=== PATIENT | female | born 1970 | race Caucasian/White ===

== ENCOUNTER → 2020-07-28 14:44 | Outpatient (BNVA) | payer OTHER, SELFPAY | PROVIDERS: PCP Internal Medicine; Referring Provider Internal Medicine; Visit Provider Physician Assistant | DX: K28.9 Gastrojejunal ulcer, unspecified as acute or chronic, without hemorrhage or perforation (principal); I95.9 Hypotension, unspecified; Z79.899 Other long term (current) drug therapy; Z98.84 Bariatric surgery status | CPT/HCPCS: 99214 ==

== ENCOUNTER 2020-08-03 14:12 | Outpatient (REF) | payer OTHER, SELFPAY | END 2020-08-03 14:13 | disposition home or self-care (01) | LOC: HO.LAB 14:12 | PROVIDERS: PCP Internal Medicine; Visit Provider Internal Medicine | DX: Z20.828 Contact with and (suspected) exposure to other viral communicable diseases (principal) | CPT/HCPCS: 87635 ==

== ENCOUNTER 2020-08-17 10:07 | Outpatient (REF) | payer OTHER, SELFPAY ==
--- NOTE | 2020-08-17 10:28 | XR_ITS ---
EXAMINATION: XR ANKLE, LEFT CLINICAL INFORMATION: Displaced fracture lateral malleolus COMPARISON: Radiographs left ankle and foot 06/27/2020 TECHNIQUE: AP, lateral, and mortise views of the left ankle. FINDINGS: The distal fibula and lateral malleolus appears intact. There is no lateral malleoli fracture line or periostitis or callus formation. Again, there is old appearing posttraumatic change versus collapsed tip medial malleolus. The ankle mortise is symmetric. There is no visible ankle capsular effusion. The subtalar joint is unremarkable. There is bulky posterior calcaneal spur again noted. Some mild spurring again seen mid dorsum foot. IMPRESSION: 1. Cleft versus old injury tip medial malleolus similar to prior exam. 2. No visible lateral malleoli fracture. Ankle mortise is symmetric. 3. Bulky posterior calcaneal spur.
== END 2020-08-17 10:08 | disposition home or self-care (01) ==
LOC: HO.XRAY 10:07
PROVIDERS: PCP Internal Medicine; Referring Provider Internal Medicine; Visit Provider Physician Assistant
DX: S82.832D Other fracture of upper and lower end of left fibula, subsequent encounter for closed fracture with routine healing (principal)
CPT/HCPCS: 73610; 99212

== ENCOUNTER 2020-08-18 09:49 | Day surgery (SDC) | payer OTHER, SELFPAY ==
[2020-08-16 21:16] VITALS: BMI 28.0
--- NOTE | 2020-08-17 10:22 | P.CONAN_ITS ---
Documented by User: Nikki Diez 08/17/20 10:29 HPI - Anesthesia Eval Consult details Narrative: 50yo F for EGD s/p gastric bypass 10/2019 mult egd (last 07/14/20) FOR[facility]LY [facility] Past Medical History Medical History Anastomotic ulcer S/P gastric bypass Anxiety Back pain CKD stage 3 secondary to diabetes Depression Diabetes Diverticulitis DVT of right axillary vein, acute Endometrial cancer Hypotension Pacemaker (~2015) Pulmonary embolus, left (~04/2020) Renal stones Seizure disorder Status post extracorporeal shock wave therapy Family History Family History Father No problems noted. Mother Diabetes Chronic mental illness Father No problems noted. Mother No problems noted. Surgical History Surgical History H/O tooth extraction History of esophagogastroduodenoscopy (~06/2020) History of Trisha-en-Y gastric bypass (~10/2019) History of sleeve gastrectomy (~2014) Hx laparoscopic cholecystectomy Hx of appendectomy Hx of hernia repair S/P CELESTINO (total abdominal hysterectomy) Social History Social History Alcohol intake: former Smoking Status: Never smoker Second Hand Smoke Exposure: No Use of substances other than those prescribed or required for medical reasons: No Advance Directives: No Advance Directives Information Provided: No Advance Directives on File: No Recently lost weight without trying: No Meds Allergies Allergy/AdvReac Type Severity Reaction Status Date / Time egg [EGGS] Allergy Intermediate NAUSEA/VOMI Verified 08/17/20 10:16 TING sumatriptan [From IMITREX] Allergy Intermediate HEART Verified 08/17/20 10:16 PALPITATIONS eggs Allergy Intermediate vomit Uncoded 08/16/20 21:11 Ibuprofen Allergy Unknown Unknown Uncoded 08/16/20 20:52 Home Medications Medication Instructions Recorded Confirmed Type food supplemt, lactose-reduced 1 ea PO TID 07/27/20 08/16/20 History pantoprazole 20 mg tablet,delayed 20 mg PO DAILY 07/27/20 08/16/20 History release sucralfate 1 gram tablet 1 g PO TID tab 07/27/20 08/16/20 History midodrine 5 mg tablet 5 mg PO TID 07/28/20 08/16/20 History Exam Exam Date and Time: August 17, 2020 1022 Height,Weight and Vital Signs: Height 5 ft 6 in Weight 78.925 kg Pertinent Lab Results Pertinent Lab Results: Laboratory Tests 07/20/20 07/20/20 20:43 20:43 WBC 5.3 Hgb 12.0 Hct 37.7 Plt Count 251 Sodium 139 Potassium 4.3 Chloride 105 BUN 22 H Creatinine 1.34 Narrative Narrative: EKG 04/2020: A-paced, RV conduction delay ECHO 11/2019: LVEF 60-65%, no RWMA Assessment and Plan Assessment Anesthesia Assessment: Chart Reviewed Documented by User: Catalino Abdalla 08/18/20 10:52 PMFSH Past Medical History Medical History Anastomotic ulcer S/P gastric bypass Anxiety Back pain CKD stage 3 secondary to diabetes Depression Diabetes Diverticulitis DVT of right axillary vein, acute Endometrial cancer Hypotension Pacemaker (~2015) Pulmonary embolus, left (~04/2020) Renal stones Seizure disorder Status post extracorporeal shock wave therapy Family History Family History Father No problems noted. Mother Diabetes Chronic mental illness Father No problems noted. Mother No problems noted. Surgical History Surgical History H/O tooth extraction History of esophagogastroduodenoscopy (~06/2020) History of Trisha-en-Y gastric bypass (~10/2019) History of sleeve gastrectomy (~2014) Hx laparoscopic cholecystectomy Hx of appendectomy Hx of hernia repair S/P CELESTINO (total abdominal hysterectomy) Social History Social History Alcohol intake: former Smoking Status: Never smoker Second Hand Smoke Exposure: No Use of substances other than those prescribed or required for medical reasons: No Advance Directives: No Advance Directives Information Provided: No Advance Directives on File: No Recently lost weight without trying: No Meds Allergies Allergy/AdvReac Type Severity Reaction Status Date / Time egg [EGGS] Allergy Intermediate NAUSEA/VOMI Verified 08/17/20 10:16 TING sumatriptan [From IMITREX] Allergy Intermediate HEART Verified 08/17/20 10:16 PALPITATIONS eggs Allergy Intermediate vomit Uncoded 08/16/20 21:11 Ibuprofen Allergy Unknown Unknown Uncoded 08/16/20 20:52 Home Medications Medication Instructions Recorded Confirmed Type food supplemt, lactose-reduced 1 ea PO TID 07/27/20 08/16/20 History pantoprazole 20 mg tablet,delayed 20 mg PO DAILY 07/27/20 08/16/20 History release sucralfate 1 gram tablet 1 g PO TID tab 07/27/20 08/16/20 History midodrine 5 mg tablet 5 mg PO TID 07/28/20 08/16/20 History Exam Airway Mallampati Class: II TM Dist: >3cm Neck ROM: Full Denture: Upper and Lower Loose/Missing/Broken Teeth: No Heart: rrr+s1s2 Lungs: cta b/l Assessment and Plan Assessment Anesthesia Assessment: Anesthesia Plan Discussed, PAT Visit and Chart Reviewed Final Anesthetic Review NPO: Yes ASA Class: III Final Preanesthetic Review: No Changes in Pt Med Stat, Meds/Allgs Chart Reviewed, Consent Obtained/Reviewed and Anes Risks/Benef Reviewed Patient Risk: Low Procedure Risk: Low Assessment/Block/Sedation in SS: Assess/Block/Sedation-SS Anesthetic Plan Anesthetic Plan: MAC: Disposition: Standard PACU
[2020-08-18 10:33] LABS: Glucose, Whole Blood 77 mg/dL (60-115)
--- NOTE | 2020-08-18 10:39 | MHC.SHP ---
Pre-Procedural Eval Section A The patient is an INPATIENT: No The History & Physical has been completed within 30 days and I have reviewed it.: Yes Section B Chief Complaint: ANATOMIC ULCER Relevant Family History (Specify if Yes): No Relevant Social History: None Present Medications: see Short Stay Collaborative assessment Medical History: No relevant PMH History of Previous Operations: Relevant previous surgery/procedure and date(s) (Revision of sleeve gastrectomy to gastric bypass) Allergies: Allergies Allergy/AdvReac Type Severity Reaction Status Date / Time egg [EGGS] Allergy Intermediate NAUSEA/VOMI Verified 08/17/20 10:16 TING sumatriptan [From IMITREX] Allergy Intermediate HEART Verified 08/17/20 10:16 PALPITATIONS eggs Allergy Intermediate vomit Uncoded 08/16/20 21:11 Ibuprofen Allergy Unknown Unknown Uncoded 08/16/20 20:52 Review of Systems Sugical H&P ROS: Negative: Constitution, Cardiovascular, Respiratory, Neurological, Psychiatric, Hem-Onc, Allergic/Immunologic, Gastrointestinal, Genitourinary, Musculoskeletal, Integumentary, Endocrine and Eyes/Ears/Nose/Throat Exam Surgical H&P Exam: Normal: HEENT, Normal: Heart, Normal: Lungs, Normal: Extremities, Normal: Abdomen, Normal: Skin and Normal: Neurological Plan Diagnosis/Plan: Unchanged Patient has been examined and remains a candidate for the planned procedure
[2020-08-18] MEDS: Lactated Ringers 1,000 ML 100 ML IVCONT (11:03)
--- NOTE | 2020-08-18 11:17 | PM.OP ---
Brief Operative Note Date of procedure: 08/18/20 Pre-op diagnosis: Anastomotic ulcer, s/p laparoscopic revision to gastric bypass Post-op diagnosis: same (Superficial erosion) Procedure: PROCEDURE DATE: 11/12/2019 PREOPERATIVE DIAGNOSIS: anastomotic, s/p gastric bypass POSTOPERATIVE DIAGNOSIS: Same as above. Superficial erosion PROCEDURE: [id number] Surgeon: Geoff Antunez M.D.. Ph.D. Registered Account Administrator: None Anesthesia: IV sedation Estimated blood loss: None FINDINGS AND PROCEDURE: OPERATIVE INDICATIONS: The patient is a 50 year old female known to me who underwent a revision of sleeve gastrectomy to laparoscopic gastric bypass. The patient had excellent weight loss so far but developed an anastomotic ulcer. This has improved and is here for surveillance. Based on this information I recommended an upper endoscopy to evaluate the patient's symptoms. Risks and complications of the surgery were discussed with the patient in advance particularly the possibility of perforation or bleeding that may require surgical intervention. The patient understood the risks and was in agreement with the plan. PROCEDURE: After informed consent was obtained by the patient, the patient was transferred to the Operating Room and was placed in the supine position. After successful induction of IV sedation, a mouth block was placed and the patient was placed in the left lateral decubitus position. An upper endoscopy was performed next, the oropharynx and esophagus appeared within the normal limits. There was no hiatal hernia. The z-line was smooth. The small pouch was entered, appeared to be of normal size. There was no gastritis and the gastrojejunostomy was patent. There was no anastomotic ulcer. There was a small superficial erosion at the area of the previous ulcer. At that point the scope was advanced into the proximal small intestine (proximal Trisha limb) which appeared to be normal as well. The Trisha limb and the pouch were decompressed and the scope was withdrawn from the patient's mouth. The patient was awaken and was transferred in stable condition to the Recovery Room for further care. I was present and performed all steps of the procedure. There were no residents to assist with this case. Geoff Antunez M.D., Ph.D. Surgeon: Jeanro Antunez MD Anesthesia: MAC Estimated blood loss (mL): 0 IV fluids (mL): 300 Urine output (mL): 0 Pathology: none sent Condition: stable Disposition: PACU
[2020-08-18 11:19] VITALS: BP 94/44; PULSE 60; RESP 12; TEMP 36.1; O2SAT 100
[2020-08-18 11:34] VITALS: BP 123/75; PULSE 61; RESP 16; TEMP 36.1; O2SAT 100
--- NOTE | 2020-08-18 11:55 | HO.POSTANES ---
Post Anesthesia Evaluation Post Anesthesia Evaluation Vital Signs: Vital Signs Temp Pulse Resp BP Pulse Ox 08/18/20 11:34 97.0 F 61 16 123/75 100 08/18/20 11:19 97.0 F 60 12 94/44 L 100 Anesthesia: Monitored Mental Status: Awake Pain Control: Satisfactory Nausea/Vomiting: None Hydration: Adequate Anesthesia-Related Issues: No Anes. Related Issues
== END 2020-08-18 12:33 | disposition home or self-care (01) ==
PROVIDERS: PCP Internal Medicine; Visit Provider Surgery
PROC: 0DJ08ZZ Inspection of Upper Intestinal Tract, Via Natural or Artificial Opening Endoscopic (ICD-10-PCS; CPT 43235; principal; 2020-08-18 11:30)
DX: K28.9 Gastrojejunal ulcer, unspecified as acute or chronic, without hemorrhage or perforation (principal); Z98.84 Bariatric surgery status; E11.22 Type 2 diabetes mellitus with diabetic chronic kidney disease; N18.30 Chronic kidney disease, stage 3 unspecified; G40.909 Epilepsy, unspecified, not intractable, without status epilepticus; I95.9 Hypotension, unspecified; Z95.0 Presence of cardiac pacemaker; Z87.442 Personal history of urinary calculi; I82.A11 Acute embolism and thrombosis of right axillary vein; Z79.899 Other long term (current) drug therapy; Z88.8 Allergy status to other drugs, medicaments and biological substances; Z90.49 Acquired absence of other specified parts of digestive tract
CPT/HCPCS: 43235; 82947; J2250

== ENCOUNTER → 2020-08-19 14:10 | Outpatient (BNVA) | payer OTHER, SELFPAY | PROVIDERS: PCP Internal Medicine; Visit Provider Physician Assistant | DX: K28.9 Gastrojejunal ulcer, unspecified as acute or chronic, without hemorrhage or perforation (principal); E66.3 Overweight; Z68.28 Body mass index [BMI] 28.0-28.9, adult; Z71.3 Dietary counseling and surveillance | CPT/HCPCS: 99214 ==

== ENCOUNTER 2020-09-01 14:55 | Outpatient (REF) | payer OTHER, SELFPAY ==
--- NOTE | 2020-09-01 15:00 | XR_ITS ---
EXAMINATION: XR FOOT, RIGHT CLINICAL INFORMATION: Pain in right foot. Injury. COMPARISON: Right foot 09/01/2020 TECHNIQUE: 3 views of the right foot. FINDINGS: No fracture. No dislocation. No focal bone lesion or abnormal periosteal reaction. There is osteopenia. There is a prominent spur at the posterior calcaneus at the insertion of Achilles tendon. There is degenerative spurs of the mid talar joints at the dorsum of the foot. There is mild joint narrowing of the IP joint of the toes. Compared to the prior study of 09/01/2020 there has not been substantial change. XR/XR foot RT min 3V IMPRESSION: No acute abnormality of the foot.
== END 2020-09-01 14:56 | disposition home or self-care (01) ==
LOC: HO.HMGCX 14:55
PROVIDERS: PCP Internal Medicine; Visit Provider Hospitalist
DX: M79.671 Pain in right foot (principal)
CPT/HCPCS: 73630

== ENCOUNTER 2020-09-27 09:49 | Day surgery (SDC) | payer OTHER, SELFPAY ==
[2020-09-20 11:17] VITALS: BMI 28.1
--- NOTE | 2020-09-26 12:20 | HO.ANESPROP2 ---
Documented by User: Nikki Diez 09/26/20 12:22 HPI - Anesthesia Eval Consult details Narrative: 50yo F for Upper Endoscopy Last EGD 08/18/20 with MAC PMFSH Past Medical History Medical History Anastomotic ulcer S/P gastric bypass Anxiety Back pain CKD stage 3 secondary to diabetes Depression Diabetes Diverticulitis DVT of right axillary vein, acute Endometrial cancer Hypotension Pacemaker (~2015) Pulmonary embolus, left (~04/2020) Renal stones Seizure disorder Status post extracorporeal shock wave therapy Family History Family History Father No problems noted. Mother Diabetes Chronic mental illness Father No problems noted. Mother No problems noted. Surgical History Surgical History H/O tooth extraction History of esophagogastroduodenoscopy (~06/2020) History of Trisha-en-Y gastric bypass (~10/2019) History of sleeve gastrectomy (~2014) Hx laparoscopic cholecystectomy Hx of appendectomy Hx of hernia repair S/P CELESTINO (total abdominal hysterectomy) Social History Social History Alcohol intake: former Smoking Status: Unknown if ever smoked Second Hand Smoke Exposure: No Use of substances other than those prescribed or required for medical reasons: No Advance Directives: No Advance Directives Information Provided: No Advance Directives on File: No Meds Allergies Allergy/AdvReac Type Severity Reaction Status Date / Time egg [EGGS] AdvReac Intermediate NAUSEA/VOMI Verified 09/26/20 17:45 TING sumatriptan [From IMITREX] AdvReac Intermediate HEART Verified 09/26/20 17:45 PALPITATIONS Ibuprofen Allergy Unknown Unknown Uncoded 09/01/20 14:56 Home Medications Medication Instructions Recorded Confirmed Type food supplemt, lactose-reduced 1 ea PO TID 07/27/20 09/20/20 History sucralfate 1 gram tablet 1 g PO TID tab 07/27/20 09/20/20 History midodrine 5 mg tablet 5 mg PO TID 07/28/20 09/20/20 History hsdifxoj-xbwgcriu-dswc 45 mg-folic 1 cap PO DAILY 08/19/20 09/20/20 History acid 800 mcg-vit K 120 mcg capsule pantoprazole 20 mg tablet,delayed 40 mg PO DAILY tab 08/19/20 09/27/20 History release zolpidem 5 mg tablet 5 mg PO BEDTIME PRN 08/19/20 09/20/20 History Exam Exam Date and Time: September 26, 2020 1220 Height,Weight and Vital Signs: Height 5 ft 6 in Weight 79.107 kg Narrative Narrative: EKG 04/2020: A-paced, RV conduction delay ECHO 11/2019: LVEF 60-65%, no RWMA Assessment and Plan Assessment Anesthesia Assessment: Chart Reviewed Documented by User: Catalino Abdalla 09/27/20 12:38 PMFSH Past Medical History Medical History Anastomotic ulcer S/P gastric bypass Anxiety Back pain CKD stage 3 secondary to diabetes Depression Diabetes Diverticulitis DVT of right axillary vein, acute Endometrial cancer Hypotension Pacemaker (~2015) Pulmonary embolus, left (~04/2020) Renal stones Seizure disorder Status post extracorporeal shock wave therapy Family History Family History Father No problems noted. Mother Diabetes Chronic mental illness Father No problems noted. Mother No problems noted. Surgical History Surgical History H/O tooth extraction History of esophagogastroduodenoscopy (~06/2020) History of Trisha-en-Y gastric bypass (~10/2019) History of sleeve gastrectomy (~2014) Hx laparoscopic cholecystectomy Hx of appendectomy Hx of hernia repair S/P CELESTINO (total abdominal hysterectomy) Social History Social History Alcohol intake: former Smoking Status: Unknown if ever smoked Second Hand Smoke Exposure: No Use of substances other than those prescribed or required for medical reasons: No Advance Directives: No Advance Directives Information Provided: No Advance Directives on File: No Meds Allergies Allergy/AdvReac Type Severity Reaction Status Date / Time egg [EGGS] AdvReac Intermediate NAUSEA/VOMI Verified 09/26/20 17:45 TING sumatriptan [From IMITREX] AdvReac Intermediate HEART Verified 09/26/20 17:45 PALPITATIONS Ibuprofen Allergy Unknown Unknown Uncoded 09/01/20 14:56 Home Medications Medication Instructions Recorded Confirmed Type food supplemt, lactose-reduced 1 ea PO TID 07/27/20 09/20/20 History sucralfate 1 gram tablet 1 g PO TID tab 07/27/20 09/20/20 History midodrine 5 mg tablet 5 mg PO TID 07/28/20 09/20/20 History blzwygqo-mxpatzqn-wdsu 45 mg-folic 1 cap PO DAILY 08/19/20 09/20/20 History acid 800 mcg-vit K 120 mcg capsule pantoprazole 20 mg tablet,delayed 40 mg PO DAILY tab 08/19/20 09/27/20 History release zolpidem 5 mg tablet 5 mg PO BEDTIME PRN 08/19/20 09/20/20 History Exam Airway Mallampati Class: II TM Dist: >3cm Neck ROM: Full Loose/Missing/Broken Teeth: No Heart: rrr+s1s2 Lungs: cta b/l Assessment and Plan Assessment Anesthesia Assessment: Anesthesia Plan Discussed, PAT Visit and Chart Reviewed Final Anesthetic Review NPO: Yes ASA Class: III Final Preanesthetic Review: No Changes in Pt Med Stat, Meds/Allgs Chart Reviewed, Consent Obtained/Reviewed and Anes Risks/Benef Reviewed Patient Risk: Low Procedure Risk: Low Assessment/Block/Sedation in SS: Assess/Block/Sedation-SS Anesthetic Plan Anesthetic Plan: MAC: Disposition: Standard PACU
[2020-09-27 10:50] VITALS: BP 117/79; PULSE 62; RESP 18; TEMP 36.3; O2SAT 98
[2020-09-27] MEDS: Lactated Ringers 1,000 ML 100 ML IVCONT (11:15)
--- NOTE | 2020-09-27 13:03 | MHC.SHP ---
Pre-Procedural Eval Section A The patient is an INPATIENT: Yes The History & Physical has been completed within 30 days and I have reviewed it.: Yes Section B Chief Complaint: Gastrojejunal Ulcer Details of Present Illness: Endoscopic surveillance of a severe anastomotic ulcer Relevant Family History (Specify if Yes): No Relevant Social History: None Present Medications: see Short Stay Collaborative assessment Medical History: No relevant PMH History of Previous Operations: Relevant previous surgery/procedure and date(s) (Lap gastric bypass) Allergies: Allergies Allergy/AdvReac Type Severity Reaction Status Date / Time egg [EGGS] AdvReac Intermediate NAUSEA/VOMI Verified 09/26/20 17:45 TING sumatriptan [From IMITREX] AdvReac Intermediate HEART Verified 09/26/20 17:45 PALPITATIONS Ibuprofen Allergy Unknown Unknown Uncoded 09/01/20 14:56 Review of Systems Sugical H&P ROS: Negative: Constitution, Cardiovascular, Respiratory, Neurological, Psychiatric, Hem-Onc, Allergic/Immunologic, Gastrointestinal, Genitourinary, Musculoskeletal, Integumentary, Endocrine and Eyes/Ears/Nose/Throat Exam Surgical H&P Exam: Normal: HEENT, Normal: Heart, Normal: Lungs, Normal: Extremities, Normal: Abdomen, Normal: Skin and Normal: Neurological Plan Diagnosis/Plan: Unchanged Patient has been examined and remains a candidate for the planned procedure
[2020-09-27] MEDS: Lactated Ringers 1,000 ML 80 ML IVCONT (13:20)
--- NOTE | 2020-09-27 13:35 | PM.OP ---
Brief Operative Note Date of Service: 09/27/20 Pre-op diagnosis: Surveillance for anastomotic ulcer Post-op diagnosis: same (Healed anastomotic ulcer) Procedure: PROCEDURE DATE: 11/12/2019 PREOPERATIVE DIAGNOSIS: surveillance for anastomotic ulcer, s/p gastric bypass POSTOPERATIVE DIAGNOSIS: Healed anastomotic ulcer PROCEDURE: [id number] Surgeon: Geoff Antunez M.D.. Ph.D. Butting Saw Operator: None Anesthesia: IV sedation Estimated blood loss: None FINDINGS AND PROCEDURE: OPERATIVE INDICATIONS: The patient is a 50 year old female known to [facility] who underwent a laparoscopic gastric bypass. The patient had an excellent weight loss so far and had developed an anastomotic ulcer. This is a surveillance endoscopy to make sure the ulcer has not recurred as the patient's diet was advanced. Risks and complications of the surgery were discussed with the patient in advance particularly the possibility of perforation or bleeding that may require surgical intervention. The patient understood the risks and was in agreement with the plan. PROCEDURE: After informed consent was obtained by the patient, the patient was transferred to the Operating Room and was placed in the supine position. After successful induction of IV sedation, a mouth block was placed and the patient was placed in the left lateral decubitus position. An upper endoscopy was performed next, the oropharynx and esophagus appeared within the normal limits. There was no hiatal hernia. The z-line was smooth. The small pouch was entered, appeared to be of normal size. There was no gastritis and the gastrojejunostomy was patent. There was no anastomotic ulcer. At that point the scope was advanced into the proximal small intestine (proximal Trisha limb) which appeared to be normal as well. The Trisha limb and the pouch were decompressed and the scope was withdrawn from the patient's mouth. The patient was awaken and was transferred in stable condition to the Recovery Room for further care. I was present and performed all steps of the procedure. There were no residents to assist with this case. Geoff Antunez M.D., Ph.D. Surgeon: Jenaro Antunez MD Anesthesia: MAC Estimated blood loss (mL): 0 IV fluids (mL): 300 Urine output (mL): 0 (No [place] to record) Pathology: none sent Condition: stable Disposition: PACU
[2020-09-27 13:41] VITALS: BP 102/48; PULSE 60; RESP 12; TEMP 36.8; O2SAT 98
[2020-09-27 13:53] VITALS: BP 106/61; PULSE 62; RESP 18; TEMP 36.6; O2SAT 99
--- NOTE | 2020-09-27 14:07 | HO.POSTANES ---
Post Anesthesia Evaluation Post Anesthesia Evaluation Vital Signs: Vital Signs Temp Pulse Resp BP Pulse Ox 09/27/20 13:53 98 F 62 18 106/61 99 09/27/20 13:41 98.2 F 60 12 102/48 L 98 09/27/20 10:50 97.4 F 62 18 117/79 98 Anesthesia: Monitored Mental Status: Awake Pain Control: Satisfactory Nausea/Vomiting: None Hydration: Adequate Anesthesia-Related Issues: No Anes. Related Issues
== END 2020-09-27 14:20 | disposition home or self-care (01) ==
PROVIDERS: PCP Internal Medicine; Visit Provider Surgery
PROC: 0DJ08ZZ Inspection of Upper Intestinal Tract, Via Natural or Artificial Opening Endoscopic (ICD-10-PCS; CPT 43235; principal; 2020-09-27 11:10)
DX: K28.9 Gastrojejunal ulcer, unspecified as acute or chronic, without hemorrhage or perforation (principal); Z98.84 Bariatric surgery status; E11.22 Type 2 diabetes mellitus with diabetic chronic kidney disease; N18.30 Chronic kidney disease, stage 3 unspecified; I95.9 Hypotension, unspecified; G40.909 Epilepsy, unspecified, not intractable, without status epilepticus; Z95.0 Presence of cardiac pacemaker; Z90.49 Acquired absence of other specified parts of digestive tract; Z79.899 Other long term (current) drug therapy; Z88.8 Allergy status to other drugs, medicaments and biological substances; E66.3 Overweight; Z68.28 Body mass index [BMI] 28.0-28.9, adult
CPT/HCPCS: 43235

== ENCOUNTER → 2020-10-13 09:28 | Outpatient (BNVA) | payer OTHER, SELFPAY | PROVIDERS: PCP Internal Medicine; Visit Provider Physician Assistant | DX: Z98.84 Bariatric surgery status (principal) | CPT/HCPCS: Q3014 ==

== ENCOUNTER → 2020-11-04 08:16 | Outpatient (BNVA) | payer OTHER, SELFPAY | PROVIDERS: PCP Internal Medicine; Visit Provider Physician Assistant | DX: E66.3 Overweight (principal); Z98.84 Bariatric surgery status | CPT/HCPCS: Q3014 ==

== ENCOUNTER → 2020-12-23 08:20 | Outpatient (BNVA) | payer OTHER, SELFPAY | PROVIDERS: PCP Internal Medicine; Visit Provider Physician Assistant | DX: E66.3 Overweight (principal); Z98.84 Bariatric surgery status | CPT/HCPCS: Q3014 ==

== ENCOUNTER 2021-01-30 09:47 | Outpatient (REF) | payer OTHER, SELFPAY ==
[2021-01-30 10:52] LABS: MANUAL DIFF FLAG NO
[2021-01-30 11:12] LABS: Basophils Percent Auto 0.4 % (0-2); Eosinophils Absolute Auto 0.2 X10*3/uL (0.0-0.4); Eosinophils Percent Auto 2.8 % (0-4); Hematocrit 38.5 % (37-47); Hemoglobin 12.1 g/dl (12.0-16.0); Imm Gran Abs Auto 0.02 X10*3/uL (0.00-0.03); Imm Gran Pct Auto 0.4 % (0.0-0.4); Lymphocytes Absolute Auto 0.9 X10*3/uL (1.2-4.9); Mean Corpuscular HGB Conc 31.4 g/dl (31.0-35.0); Mean Corpuscular Hemoglobin 27.9 pg (27.0-33.0); Mean Corpuscular Volume 88.7 fL (80-98); Mean Platelet Volume 10.3 fL (9.4-12.3); Monocytes Absolute Auto 0.4 X10*3/uL (0.1-1.2); Monocytes Percent Auto 7.7 % (2-11); Neutrophils Absolute Auto 3.8 X10*3/uL (2.0-8.3); Neutrophils Percent Auto 71.7 % (45-73); Platelet Count 301 X10*3/uL (160-400); Red Blood Count 4.34 X10*6/uL (4.20-5.50); Red Cell Distribution Width 13.5 % (11.0-16.0); White Blood Count 5.3 X10*3/uL (4.8-10.8)
[2021-01-30 11:33] LABS: Alanine Aminotransferase 17 U/L (0-31); Alkaline Phosphatase 123 U/L (39-117); Anion Gap 13 (12-20); Aspartate Amino Transferase 19 U/L (5-31); Bilirubin Total 0.6 mg/dL (0.0-1.0); Blood Urea Nitrogen 30 mg/dL (9-16); C Reactive Protein 1.75 mg/dL (< or = 0.50); Calcium 9.2 mg/dL (8.4-10.2); Carbon Dioxide 25 mmol/L (22-29); Chloride 108 mmol/L (96-108); Cholesterol 223 mg/dL; Estimated Glomerular Filt Rate 41; Glucose Random 89 mg/dL (60-115); HDL Cholesterol 51 mg/dL; LDL Cholesterol Calculated 140 mg/dl; Potassium 4.6 mmol/L (3.3-5.1); Sodium 141 mmol/L (135-145); Total Protein 6.6 g/dL (6.5-8.0); Triglycerides 164 mg/dL
[2021-01-30 11:42] LABS: Estimated Average Glucose 97 mg/dL
[2021-01-30 11:45] LABS: TSH reflex Free T4 0.85 uIU/mL (0.32-4.0); Vitamin D 25-OH Total 27.2 ng/mL (>30)
[2021-01-30 12:19] LABS: Folate 16.4 ng/mL (> or = 4.0); Vitamin B12 522 pg/mL (200-900)
[2021-01-30 13:15] LABS: Ferritin 22 ng/mL (10-250)
[2021-01-31 11:52] LABS: Calcium (PTHI) 9.3 mg/dL (8.6-10.4); PTHI 64 pg/mL (14-64)
[2021-01-31 21:21] LABS: Insulin Level Total 9.7 uIU/mL
[2021-02-02 02:11] LABS: Zinc 62 mcg/dL (60-130)
[2021-02-04 12:16] LABS: Vitamin A 57 mcg/dL (38-98)
[2021-02-06 08:26] LABS: Vitamin B1 29 nmol/L (8-30)
== END 2021-01-30 09:48 | disposition home or self-care (01) ==
LOC: HO.LAB 09:47
PROVIDERS: PCP Internal Medicine; Visit Provider Physician Assistant
DX: K28.9 Gastrojejunal ulcer, unspecified as acute or chronic, without hemorrhage or perforation (principal); Z98.84 Bariatric surgery status
CPT/HCPCS: 36415; 80053; 80061; 82306; 82607; 82728; 82746; 83036; 83525; 83970; 84425; 84443; 84590; 84630; 85025; 86140

== ENCOUNTER → 2021-02-22 08:30 | Outpatient (BNVA) | payer OTHER, SELFPAY | PROVIDERS: PCP Internal Medicine; Visit Provider Physician Assistant | DX: E66.3 Overweight (principal); Z68.28 Body mass index [BMI] 28.0-28.9, adult; Z98.84 Bariatric surgery status; Z71.3 Dietary counseling and surveillance | CPT/HCPCS: Q3014 ==

== ENCOUNTER → 2021-04-07 08:20 | Outpatient (BNVA) | payer OTHER, SELFPAY | PROVIDERS: PCP Internal Medicine; Visit Provider Physician Assistant | DX: E66.3 Overweight (principal); Z98.84 Bariatric surgery status | CPT/HCPCS: Q3014 ==

== ENCOUNTER 2021-04-13 23:01 | Inpatient (IN) | payer OTHER, SELFPAY ==
--- NOTE | ~2021-04-13 | XR_ITS ---
EXAMINATION: XR CHEST CLINICAL INFORMATION: Overdose COMPARISON: Previous chest x-ray most recent April 2020 TECHNIQUE: Frontal view of the chest was obtained. FINDINGS: The cardiac and mediastinal contours are stable. There is a left subclavian dual chamber pacemaker in satisfactory position. The lungs are clear. There is no pleural effusion or pneumothorax. There are surgical clips projecting over the GE junction region and in the right upper quadrant. There are degenerative changes of the spine and curvature to the right. XR/XR chest 1V IMPRESSION: No evidence for acute disease in the chest.
[2021-04-13 23:06] VITALS: BP 117/63; PULSE 81; O2SAT 97
[2021-04-13 23:09] VITALS: BP 86/54; PULSE 75; RESP 14; TEMP 37.1; O2SAT 98; BMI 33.4
[2021-04-13 23:26] VITALS: BP 96/57
[2021-04-13 23:34] VITALS: BP 90/54; PULSE 73; RESP 16; TEMP 37.2; O2SAT 98
[2021-04-14] VITALS (14 sets, daily range): BP systolic 91–162; BP diastolic 53–88; PULSE 62–92; RESP 14–28; TEMP 36.1–36.6; O2SAT 96–100; BMI 32.6
[2021-04-14] MEDS: Naloxone HCl 2 MG/2 ML SYRINGE IVPUSH (00:05)
--- NOTE | 2021-04-14 00:20 | PC.NURSE ---
4mg zofran given IVP due to preciptius withdral.
[2021-04-14 00:21] LABS: Alanine Aminotransferase 17 U/L (0-31); Albumin Level 3.3 g/dL (3.5-5.0); Alkaline Phosphatase 126 U/L (39-117); Anion Gap 16 (12-20); Aspartate Amino Transferase 39 U/L (5-31); Bilirubin Total 0.5 mg/dL (0.0-1.0); Blood Urea Nitrogen 26 mg/dL (9-16); Calcium 8.1 mg/dL (8.4-10.2); Carbon Dioxide 22 mmol/L (22-29); Chloride 102 mmol/L (96-108); Creatinine Clr Calc Pharmacy 57.5; Estimated Glomerular Filt Rate 40; Glucose Random 122 mg/dL (60-115); Potassium 4.5 mmol/L (3.3-5.1); Sodium 135 mmol/L (135-145); Total Protein 5.7 g/dL (6.5-8.0)
--- NOTE | 2021-04-14 00:26 | ED.OVERDOSE ---
HPI - Overdose General Chief Complaint: Overdose Stated Complaint: od Time Seen by Provider: 04/14/21 00:01 Source: patient and EMS Mode of arrival: EMS Limitations: altered mental status History of Present Illness HPI Narrative: 50-year-old female is brought to the emergency department by ambulance for unintentional hydromorphone overdose. Patient is not able to give a good history, information was obtained from the ED nurse. The patient apparently had a recent back surgery and may have been discharged from a rehab facility. The patient dose of prescription 2 days prior for Dilaudid (hydromorphone) 2 mg tablets, dispensed 40 pills. Apparently she took all the pills over a 2 day. There is also some concern that the patient may have taken Ativan and Xanax. Apparently, patient has had similar overdoses in the past. A family member (niece) checked in on her this evening and she was found unresponsive. Paramedics administered Narcan and the patient woke up. The patient had a recent bariatric visit on 04/07/2021 (1 week prior). According to the note the patient was scheduled for a back surgery on April 10, 2021 at [facility] for a fracture of L3/scoliosis. Related Data Home Medications Medication Instructions Recorded Confirmed alprazolam 0.5 - 1 tab PO DAILY PRN 04/13/21 04/13/21 amitriptyline 1 - 2 tab PO BEDTIME PRN 04/13/21 04/13/21 calcium citrate-vitamin D3 1 tab PO BID 04/13/21 04/13/21 melatonin 1 cap PO BEDTIME 04/13/21 04/13/21 pantoprazole 1 tab PO DAILY 04/13/21 04/13/21 tizanidine 1 tab PO BID 04/13/21 04/13/21 venlafaxine 1 cap PO DAILY 04/13/21 04/13/21 zolpidem 0.5 - 1 tab PO BEDTIME PRN 04/13/21 04/13/21 Allergies Allergy/AdvReac Type Severity Reaction Status Date / Time egg [EGGS] AdvReac Intermediate NAUSEA/VOMI Verified 09/26/20 17:45 TING sumatriptan [From IMITREX] AdvReac Intermediate HEART Verified 09/26/20 17:45 PALPITATIONS Ibuprofen Allergy Unknown Unknown Uncoded 09/01/20 14:56 Review of Systems Review of Systems: Yes Unobtainable due to mental status [facility] Past Medical History Medical History Anastomotic ulcer S/P gastric bypass Anxiety Back pain CKD stage 3 secondary to diabetes Depression Diabetes Diverticulitis DVT of right axillary vein, acute Endometrial cancer Hypotension Pacemaker (~2015) Pulmonary embolus, left (~04/2020) Renal stones Seizure disorder Status post extracorporeal shock wave therapy Surgical History H/O tooth extraction History of esophagogastroduodenoscopy (~06/2020) History of Trisha-en-Y gastric bypass (~10/2019) History of sleeve gastrectomy (~2014) Hx laparoscopic cholecystectomy Hx of appendectomy Hx of hernia repair S/P CELESTINO (total abdominal hysterectomy) Family History Family History Father No problems noted. Mother Diabetes Chronic mental illness Father No problems noted. Mother No problems noted. Social History Social History Alcohol intake: current Alcohol intake frequency: 0-2 drinks per day Smoked in Last 30 Days: No Second Hand Smoke Exposure: No Use of substances other than those prescribed or required for medical reasons: Yes Substance Use Type: Opiates Any prior treatment program specific to substance use: No Advance Directives: No Advance Directives Information Provided: Yes Patient : No Physical Exam Vital Signs: Vital Signs: Last Vital Signs Temp 99.0 F 04/13/21 23:34 Pulse 92 04/14/21 01:57 Resp 18 04/14/21 01:57 BP 162/88 H 04/14/21 01:57 Pulse Ox 100 04/14/21 01:57 Oxygen Flow Rate 3 04/13/21 23:09 Body Mass Index 33.4 Const: Other: Somnolent, minimally arousable, female HENMT: Head: Yes normal to inspection, Yes normocephalic and Yes atraumatic Ears: external ears normal General nose exam: Normal external nose present Face and sinus: Yes normal facial exam Mouth: Normal oral and palatal mucosa present Throat: Yes posterior oropharynx normal Eyes: Periorbital: periorbital findings normal Eyelids: Yes eyelids normal Conjunctivae: conjunctivae normal Sclerae: sclerae normal Corneas: corneas normal Direct Ophthalmoscopy: normal light reflex Neck: Neck: Yes full ROM, Yes no lymphadenopathy, Yes trachea midline and Yes supple Chest: Chest palpation & inspection: normal inspection of the chest and normal palpation of entire chest wall Resp: Effort & Inspection: normal respiratory effort Auscultation: clear to auscultation bilaterally Cardio: Rate: regular rate Rhythm: regular rhythm Heart sounds: S1 normal heart sound present, S2 normal heart sound present and no murmurs GI: Inspection: Yes normal to inspection Palpation (GI): Soft to palpation, nontender, no guarding, not rigid and No hepatosplenomegaly present Skin: Lesions: no lesions Rashes: no rashes Wounds: no wounds Neuro: Other: Somnolent, minimally withdraws from pain Motor exam (neuro): 5/5 motor strength present throughout Extrem: General: Yes normal to inspection Course Course Course Narrative: 50-year-old female who presents emergency department for evaluation of an unintentional overdose on Dilaudid ( hydromorphone) and possible benzodiazepine (Ativan or Xanax). Patient was discharged from a long term facility 2 days prior with a prescription for 40 tablets of hydromorphone, 2 mg each. Apparently the patient took all of these medications over a 2 day. She was found unresponsive by a family member and was administered Narcan by the paramedics which did wake her up. Since being in the emergency department however she has become somnolent again. She was ordered to get Narcan 2 mg IV and she was started on Narcan drip. Patient was also noted to be hypotensive and I suspect that this is secondary to her overdose of Dilaudid. She was ordered to get normal saline IV x2 L. I will discuss the patient's presentation with the covering didactic instructor. 0155: Laboratory evaluation: Patient is anemic with an H&H of 10.8 and 32.9 . The patient has an elevated BUN and creatinine of 26 and 1.38 which is consistent with her chronic kidney disease. Did reveal 1+ blood, 1+ leukocyte esterase with a microscopic which revealed 5-9 rbc's, 5-9 WBCs with no bacteria. Tox screen was positive for opiates, benzodiazepines and marijuana. The patient has been awake and slightly agitated since we started the Narcan drip. I did discuss the patient's presentation with the covering didactic instructor, Dr. Schaffer. Given the half life of Dilaudid being 2.5 hours, he felt that the patient should clear up over the next 2-3 hours on the Narcan drip, unless the patient had a significant ingestion of benzodiazepines as well. He did accept the patient into the intensive care unit. MDM - Overdose Lab Data Result diagrams: 04/14/21 00:34 04/13/21 23:43 Labs: Lab Results 04/13/21 04/13/21 04/14/21 Range/Units 23:43 23:43 00:33 WBC (4.8-10.8) X10*3/uL RBC (4.20-5.50) X10*6/uL Hgb (12.0-16.0) g/dl Hct (37-47) % MCV (80-98) fL MCH (27.0-33.0) pg MCHC (31.0-35.0) g/dl RDW (11.0-16.0) % Plt Count MPV Immature Gran % (Auto) (0.0-0.4) % Neut % (Auto) (45-73) % Lymph % (Auto) (20-40) % [place] % (Auto) (2-11) % Eos % (Auto) (0-4) % Baso % (Auto) (0-2) % Lymph # (Auto) (1.2-4.9) X10*3/uL [place] # (Auto) (0.1-1.2) X10*3/uL Eos # (Auto) (0.0-0.4) X10*3/uL Baso # (Auto) (0.0-0.2) X10*3/uL Abs Immat Gran (auto) (0.00-0.03) X10*3/uL Absolute Neuts (auto) (2.0-8.3) X10*3/uL Absolute Nucleated RBC (0.0-0.012) X10*3/uL Nucleated RBC % (auto) (0.0-0.2) /100WBC Smear Tech's Comments Hold Purple Top SEE NOTE Sodium 135 (135-145) mmol/L Potassium 4.5 (3.3-5.1) mmol/L Chloride 102 (96-108) mmol/L Carbon Dioxide 22 (22-29) mmol/L Anion Gap 16 (12-20) BUN 26 H (9-16) mg/dL Creatinine 1.38 (0.5-1.4) mg/dL Estim Creat Clear Calc 57.5 Estimated GFR 40 Random Glucose 122 H D (60-115) mg/dL Calcium 8.1 L D (8.4-10.2) mg/dL Total Bilirubin 0.5 (0.0-1.0) mg/dL AST 39 H D (5-31) U/L ALT 17 (0-31) U/L Alkaline Phosphatase 126 H (39-117) U/L Total Protein 5.7 L (6.5-8.0) g/dL Albumin 3.3 L (3.5-5.0) g/dL Lipase 9 (8-78) U/L Hold Red Top Hold Yellow Top Salicylates < 5.0 L (15-30) mg/dL Urine Opiates Screen (Not Detect) Acetaminophen < 1 (<30) mcg/mL Ur Barbiturates Screen (Not Detect) Ur Phencyclidine Scrn (Not Detect) Ur Amphetamines Screen (Not Detect) U Benzodiazepines Scrn (Not Detect) Urine Cocaine Screen (Not Detect) U Marijuana (THC) Screen (Not Detect) COVID-19 (NATO) Negative (Negative) COVID-19 Clin Com See Note 04/14/21 04/14/21 04/14/21 Range/Units 00:33 00:34 01:33 WBC 5.5 (4.8-10.8) X10*3/uL RBC 3.89 L (4.20-5.50) X10*6/uL Hgb 10.8 L (12.0-16.0) g/dl Hct 32.9 L (37-47) % MCV 84.6 (80-98) fL MCH 27.8 (27.0-33.0) pg MCHC 32.8 (31.0-35.0) g/dl RDW 12.1 (11.0-16.0) % Plt Count TNP MPV TNP Immature Gran % (Auto) 0.9 H (0.0-0.4) % Neut % (Auto) 70.6 (45-73) % Lymph % (Auto) 13.3 L (20-40) % [place] % (Auto) 10.1 (2-11) % Eos % (Auto) 4.6 H (0-4) % Baso % (Auto) 0.5 (0-2) % Lymph # (Auto) 0.7 L (1.2-4.9) X10*3/uL [place] # (Auto) 0.6 (0.1-1.2) X10*3/uL Eos # (Auto) 0.3 (0.0-0.4) X10*3/uL Baso # (Auto) 0.0 (0.0-0.2) X10*3/uL Abs Immat Gran (auto) 0.05 H (0.00-0.03) X10*3/uL Absolute Neuts (auto) 3.9 (2.0-8.3) X10*3/uL Absolute Nucleated RBC 0.000 (0.0-0.012) X10*3/uL Nucleated RBC % (auto) 0.0 (0.0-0.2) /100WBC Smear Tech's Comments VERIFIED Hold Purple Top Sodium (135-145) mmol/L Potassium (3.3-5.1) mmol/L Chloride (96-108) mmol/L Carbon Dioxide (22-29) mmol/L Anion Gap (12-20) BUN (9-16) mg/dL Creatinine (0.5-1.4) mg/dL Estim Creat Clear Calc Estimated GFR Random Glucose (60-115) mg/dL Calcium (8.4-10.2) mg/dL Total Bilirubin (0.0-1.0) mg/dL AST (5-31) U/L ALT (0-31) U/L Alkaline Phosphatase (39-117) U/L Total Protein (6.5-8.0) g/dL Albumin (3.5-5.0) g/dL Lipase (8-78) U/L Hold Red Top See Note Hold Yellow Top See Note Salicylates (15-30) mg/dL Urine Opiates Screen POSITIVE H (Not Detect) Acetaminophen (<30) mcg/mL Ur Barbiturates Screen Not Detected (Not Detect) Ur Phencyclidine Scrn Not Detected (Not Detect) Ur Amphetamines Screen Not Detected (Not Detect) U Benzodiazepines Scrn POSITIVE H (Not Detect) Urine Cocaine Screen Not Detected (Not Detect) U Marijuana (THC) Screen POSITIVE H (Not Detect) COVID-19 (NATO) (Negative) COVID-19 Clin Com Critical Care Time Critical Care Time Critical Care Time: Yes Total Critical Care Time: 55 Attestation: Critical Care: The patient was critically ill with a high probability of imminent or life threatening deterioration. I spent greater than 30 minutes of discontinuous time evaluating the patient,delivering critical care at the bedside, discussing and evaluating pertinent data with consultants. Critical care time does not include time spent performing separately billable procedures or teaching. Total time spent performing critical care was 55 minutes. Discharge Plan Discharge Clinical Impression: Narcotic overdose Qualifiers: Encounter type: initial encounter Injury intent: accidental or unintentional Qualified Code(s): T40.601A - Poisoning by unspecified narcotics, accidental (unintentional), initial encounter Benzodiazepine overdose Qualifiers: Encounter type: initial encounter Injury intent: accidental or unintentional Qualified Code(s): T42.4X1A - Poisoning by benzodiazepines, accidental (unintentional), initial encounter Patient Disposition: Admitted As Inpatient
[2021-04-14 00:27] LABS: Lipase 9 U/L (8-78); Salicylate < 5.0 mg/dL (15-30)
[2021-04-14] MEDS: ondansetron HCL 4 MG/2 ML VIAL IVPUSH (00:33)
[2021-04-14 00:37] LABS: COVID-19 Test Negative (Negative); IDNOW Serial# 9DD0AD1C
[2021-04-14] MEDS: 0.9 % Sodium Chloride 1,000 ML 999 ML IV (00:41)
[2021-04-14 00:43] LABS: Basophils Percent Auto 0.5 % (0-2); Eosinophils Absolute Auto 0.3 X10*3/uL (0.0-0.4); Eosinophils Percent Auto 4.6 % (0-4); Hematocrit 32.9 % (37-47); Hemoglobin 10.8 g/dl (12.0-16.0); Imm Gran Abs Auto 0.05 X10*3/uL (0.00-0.03); Imm Gran Pct Auto 0.9 % (0.0-0.4); Lymphocytes Absolute Auto 0.7 X10*3/uL (1.2-4.9); Lymphocytes Percent Auto 13.3 % (20-40); MANUAL DIFF FLAG SCAN; Mean Corpuscular HGB Conc 32.8 g/dl (31.0-35.0); Mean Corpuscular Hemoglobin 27.8 pg (27.0-33.0); Mean Corpuscular Volume 84.6 fL (80-98); Monocytes Absolute Auto 0.6 X10*3/uL (0.1-1.2); Monocytes Percent Auto 10.1 % (2-11); Neutrophils Absolute Auto 3.9 X10*3/uL (2.0-8.3); Neutrophils Percent Auto 70.6 % (45-73); PLT CLUMP 1; Red Blood Count 3.89 X10*6/uL (4.20-5.50); Red Cell Distribution Width 12.1 % (11.0-16.0); SCAN SMEAR FLAG 1
[2021-04-14 00:49] LABS: White Blood Count 5.5 X10*3/uL (4.8-10.8)
[2021-04-14 01:08] LABS: Acetaminophen LAB < 1 mcg/mL (<30)
[2021-04-14 01:13] LABS: SLIDE REVIEW VERIFIED
--- NOTE | 2021-04-14 01:59 | PC.NURSE ---
now awake and more orientated. pt is visibly upset at being offered a bed pain. fuck you, i don't want to use a bed pain . pt educated to high fall risk status and concerns of bp dropping due to etiology of overdose. pt has had multiple small formed bowel movements in last hour.
[2021-04-14 02:02] LABS: Amphetamine Screen Urine Not Detected (Not Detect); Barbiturates, Urine Not Detected (Not Detect); Benzodiazepines Screen Urine POSITIVE (Not Detect); Cannabinoid Screen Urine POSITIVE (Not Detect); Cocaine Screen Urine Not Detected (Not Detect); Opiate Screen Urine POSITIVE (Not Detect); Phencyclidine Screen Urine Not Detected (Not Detect)
--- NOTE | 2021-04-14 02:05 | PC.NURSE ---
expediter to bedside at this time.
--- NOTE | 2021-04-14 02:10 | PC.NURSE ---
Staff Reporter in in agreement that patient is to utilize bed pain for bm and urine eliminations. plan at this time to admit to icu for further montioring and work up.
--- NOTE | 2021-04-14 02:15 | PC.NURSE ---
Pt continues to have confused conversation and is intermittently somulent. per kristina rush you you cunt, i want out pt educated to verónica joshi and it's purpose along with eitiolgy of current visit. Pt then stated i want you and them to give me my ciarra shirt , when asked to clarify you know .
--- NOTE | 2021-04-14 02:20 | P.HPCC_ITS ---
History of Present Illness Date of Service: 04/14/21 Chief Complaint: Overdose Pt is a 50yo F with a past med hx of matthew-en-y gastric bypass, anastomic ulcer. CKD stage 3 2/2 diabetes, anxiety, DVT and PE, endometrial ca, seizures, pacemaker, renal stones, diverticulitis and recent back surgery at [facility] on 04/10/21 who was BIBA after being found unresponsive at home by her niece. EMS gave pt narcan in the field, she responded and became alert. Once in the ED, she was hypotensive in the 70's systolic and became unresponsive again. After more Narcan, she was put on a Narcan drip. Pt's niece said the pt was dispensed 40 2mg tablets of dilauded for her back pain s/p surgery. She was given the 40 tablets 2 days ago and the bottle was empty. Pt also takes xanax and was given a rx for ativan, it is unclear how much of these meds she took, if any. Apparently, the pt has a hx of overdosing. Niece said it was unintentional, it's unclear how this was determined. Niece says the family checks in on her often as she is not a high functioning adult. Labs sig for BUN 26, Cr 1.38, AST 39, Alk Phos 126, albumin 3.3, tox screen was positive for opiates, benzos and marijuana, Covid negative. Current bp is 162/88, other VSS. at my bedside exam, pt is mumbling about having to go to the bathroom, she is on a bed iyer. denies pain but is somnolent and mumbling. PE otherwise unremarkable. Pt will be brought to the ICU for mgmt of her overdose. Assessment and plan discussed with Dr Schaffer and Dr Monge. Review of Systems Review of Systems: unable to obtain Neurologic: Reports confusion Psychiatric: Psychiatric: Reports confusion PMFSH Past Medical History Medical History Anastomotic ulcer S/P gastric bypass Anxiety Back pain CKD stage 3 secondary to diabetes Depression Diabetes Diverticulitis DVT of right axillary vein, acute Endometrial cancer Hypotension Pacemaker (~2015) Pulmonary embolus, left (~04/2020) Renal stones Seizure disorder Status post extracorporeal shock wave therapy Family History Family History Father No problems noted. Mother Diabetes Chronic mental illness Father No problems noted. Mother No problems noted. Surgical History Surgical History H/O tooth extraction History of esophagogastroduodenoscopy (~06/2020) History of Matthew-en-Y gastric bypass (~10/2019) History of sleeve gastrectomy (~2014) Hx laparoscopic cholecystectomy Hx of appendectomy Hx of hernia repair S/P CELESTINO (total abdominal hysterectomy) Social History Social History Household Members: None and Unknown / Unable to assess Housing: Unknown / Unable to assess Do you presently have visiting nurse or other home services: No Unable to assess alcohol history related to: Unable to respond Alcohol intake: current Alcohol intake frequency: 0-2 drinks per day Smoked in Last 30 Days: No Second Hand Smoke Exposure: No Use of substances other than those prescribed or required for medical reasons: Yes Substance Use Type: Marijuana, Opiates and Prescription Drugs Currently Displaying Signs/Symptoms of Drug Intoxication Withdrawal: No Advance Directives: No Advance Directives Information Provided: Yes Do you have thoughts of harming others: None Do you have a plan to hurt others: No Plan Recently lost weight without trying: Unsure Nutrition Risks: No Nutritional Risk Patient : No : No Poor oral hygiene: No service: No Current occupational status: disabled Meds Allergies Allergy/AdvReac Type Severity Reaction Status Date / Time egg [EGGS] AdvReac Intermediate NAUSEA/VOMI Verified 09/26/20 17:45 TING sumatriptan [From IMITREX] AdvReac Intermediate HEART Verified 09/26/20 17:45 PALPITATIONS Ibuprofen Allergy Unknown Unknown Uncoded 09/01/20 14:56 Active Medications: Current Medications Generic Name Dose Route Start Last Admin Trade Name Freq PRN Reason Stop Dose Admin Heparin Sodium (Porcine) 5,000 unit 04/14/21 02:30 Heparin Sodium,Porcine 5,000 Unit/Ml Vial SUBCUT Q12H LUPE Naloxone HCl 5 mg/ Dextrose 105 mls @ 21 mls/hr 04/14/21 00:15 04/14/21 00:15 IV 1 mg/hr .Q5H LUPE 21 mls/hr Administration 1 MG/HR Home Medications Medication Instructions Recorded Confirmed Last Taken Type alprazolam 0.5 - 1 tab PO DAILY PRN 04/13/21 04/13/21 Unknown History amitriptyline 1 - 2 tab PO BEDTIME PRN 04/13/21 04/13/21 Unknown History calcium citrate-vitamin D3 1 tab PO BID 04/13/21 04/13/21 Unknown History melatonin 1 cap PO BEDTIME 04/13/21 04/13/21 Unknown History pantoprazole 1 tab PO DAILY 04/13/21 04/13/21 Unknown History tizanidine 1 tab PO BID 04/13/21 04/13/21 Unknown History venlafaxine 1 cap PO DAILY 04/13/21 04/13/21 Unknown History zolpidem 0.5 - 1 tab PO BEDTIME PRN 04/13/21 04/13/21 Unknown History Physical Exam Vital Signs: Vital Signs: Last Vital Signs Temp 99.0 F 04/13/21 23:34 Pulse 92 04/14/21 01:57 Resp 18 04/14/21 01:57 BP 162/88 H 04/14/21 01:57 Pulse Ox 100 04/14/21 01:57 Oxygen Flow Rate 3 04/13/21 23:09 Body Mass Index 33.4 Const: General: confusion and lethargic Nutritional Appearance: obese Orientation/consciousness: confusion and lethargic HENMT: Head: Yes normal to inspection, Yes No palpable skull fracture present, Yes normocephalic and Yes atraumatic General nose exam: Normal external nose present Face and sinus: Yes normal facial exam Eyes: General: appearance normal, both eyes and all related structures Neck: Neck: Yes normal visual inspection and Yes full ROM Resp: Effort & Inspection: normal respiratory effort Auscultation: clear to auscultation bilaterally Cardio: Rate: regular rate Rhythm: regular rhythm Heart sounds: normal S1 and S2 GI: Inspection: Yes obesity Palpation (GI): Soft to palpation and nontender Back/Spine/Pelvis: Other: dressing CDI Neuro: General: confusion and Unable to assess gait Speech: Abnormal speech present (mumbling) Gait exam (Neuro): Unable to assess gait Extrem: General: Yes normal to inspection Results Labs CBC and Chem 7: 04/14/21 05:51 06/19/21 05:32 Labs: Laboratory Results - last 24 hr 04/13/21 04/13/21 04/14/21 23:43 23:43 00:33 MCV MCH MCHC RDW Plt Count MPV Immature Gran % (Auto) Neut % (Auto) Lymph % (Auto) [place] % (Auto) Eos % (Auto) Baso % (Auto) Lymph # (Auto) [place] # (Auto) Eos # (Auto) Baso # (Auto) Abs Immat Gran (auto) Absolute Neuts (auto) Absolute Nucleated RBC Nucleated RBC % (auto) Smear Tech's Comments Hold Purple Top SEE NOTE Anion Gap 16 Estim Creat Clear Calc 57.5 Estimated GFR 40 Random Glucose 122 H D Calcium 8.1 L D Total Bilirubin 0.5 AST 39 H D ALT 17 Alkaline Phosphatase 126 H Total Protein 5.7 L Albumin 3.3 L Lipase 9 Hold Red Top Hold Yellow Top Salicylates < 5.0 L Urine Opiates Screen Acetaminophen < 1 Ur Barbiturates Screen Ur Phencyclidine Scrn Ur Amphetamines Screen U Benzodiazepines Scrn Urine Cocaine Screen U Marijuana (THC) Screen COVID-19 (NATO) Negative COVID-19 Clin Com See Note 04/14/21 04/14/21 04/14/21 00:33 00:34 01:33 MCV 84.6 MCH 27.8 MCHC 32.8 RDW 12.1 Plt Count TNP MPV TNP Immature Gran % (Auto) 0.9 H Neut % (Auto) 70.6 Lymph % (Auto) 13.3 L [place] % (Auto) 10.1 Eos % (Auto) 4.6 H Baso % (Auto) 0.5 Lymph # (Auto) 0.7 L [place] # (Auto) 0.6 Eos # (Auto) 0.3 Baso # (Auto) 0.0 Abs Immat Gran (auto) 0.05 H Absolute Neuts (auto) 3.9 Absolute Nucleated RBC 0.000 Nucleated RBC % (auto) 0.0 Smear Tech's Comments VERIFIED Hold Purple Top Anion Gap Estim Creat Clear Calc Estimated GFR Random Glucose Calcium Total Bilirubin AST ALT Alkaline Phosphatase Total Protein Albumin Lipase Hold Red Top See Note Hold Yellow Top See Note Salicylates Urine Opiates Screen POSITIVE H Acetaminophen Ur Barbiturates Screen Not Detected Ur Phencyclidine Scrn Not Detected Ur Amphetamines Screen Not Detected U Benzodiazepines Scrn POSITIVE H Urine Cocaine Screen Not Detected U Marijuana (THC) Screen POSITIVE H COVID-19 (NATO) COVID-19 Clin Com Assessment and Plan (1) Narcotic overdose: Qualifiers: Encounter type: initial encounter Injury intent: accidental or unin tentional Qualified Code(s): T40.601A - Poisoning by unspecified narcotics, accidental (unintentional), initial encounter Status: Acute (2) Benzodiazepine overdose: Qualifiers: Encounter type: initial encounter Injury intent: accidental or unintentional Qualified Code(s): T42.4X1A - Poisoning by benzodiazepines, accidental (unintentional), initial encounter Status: Acute (3) History of Matthew-en-Y gastric bypass: Status: Acute (4) Hypotension: Status: Acute Critical Care Time Critical Care Time (minutes): 60
--- NOTE | 2021-04-14 02:39 | PC.NURSE ---
attempt to call report, rn involved in pt care. awaiting call back. will continue to monitor
[2021-04-14] MEDS: Heparin Sodium,Porcine 5,000 UNIT/ML VIAL 5000 UNIT SUBCUT ×2 (02:58→15:12)
[2021-04-14 03:23] LABS: Venous Blood Gas Refer to POC result
[2021-04-14 03:26] LABS: VBG Base Excess -1.6 mmol/L; VBG HCO3 23 mmol/L (22-26); VBG pCO2 40 mmHg; VBG pH 7.37 (7.32-7.43); VBG pO2 126 mmHg
--- NOTE | 2021-04-14 04:23 | PC.NURSE ---
Patient admitted from ED. Upon arrival patient able to state name and birthdate. Patient states she is at [facility], unable to state month or year, and reason for being admitted to hospital. Patient resistive to care from staff, verbally abusive and attempting to exit bed. Patient redirected and educated on the need to stay in the bed for her own safety. Patient still pushing at staff and using vulgar terms to identify staff. Security called, upon arrival patient is now restful. Will allow patient to rest. Bed alarm is active and patient is in room at nurses station.
[2021-04-14 05:56] LABS: MANUAL DIFF FLAG NO
[2021-04-14 05:57] LABS: VBG Base Excess 1.9 mmol/L; VBG HCO3 27 mmol/L (22-26); VBG pCO2 45 mmHg; VBG pH 7.38 (7.32-7.43); VBG pO2 41 mmHg
[2021-04-14 05:58] LABS: Venous Blood Gas Refer to POC result
[2021-04-14 05:58] LABS: Basophils Percent Auto 0.2 % (0-2); Eosinophils Absolute Auto 0.2 X10*3/uL (0.0-0.4); Eosinophils Percent Auto 2.3 % (0-4); Hematocrit 31.7 % (37-47); Hemoglobin 10.2 g/dl (12.0-16.0); Imm Gran Abs Auto 0.02 X10*3/uL (0.00-0.03); Imm Gran Pct Auto 0.3 % (0.0-0.4); Lymphocytes Absolute Auto 0.3 X10*3/uL (1.2-4.9); Lymphocytes Percent Auto 5.3 % (20-40); Mean Corpuscular HGB Conc 32.2 g/dl (31.0-35.0); Mean Corpuscular Hemoglobin 27.7 pg (27.0-33.0); Mean Corpuscular Volume 86.1 fL (80-98); Mean Platelet Volume 9.5 fL (9.4-12.3); Monocytes Absolute Auto 0.4 X10*3/uL (0.1-1.2); Monocytes Percent Auto 6.1 % (2-11); Neutrophils Absolute Auto 5.5 X10*3/uL (2.0-8.3); Neutrophils Percent Auto 85.8 % (45-73); Platelet Count 216 X10*3/uL (160-400); Red Blood Count 3.68 X10*6/uL (4.20-5.50); Red Cell Distribution Width 11.9 % (11.0-16.0); White Blood Count 6.4 X10*3/uL (4.8-10.8)
[2021-04-14 06:03] LABS: INTERNATIONAL NORM RATIO 1.1 (0.9-1.1); Prothrombin Time 13.2 SEC (10.8-13.0)
[2021-04-14 06:06] LABS: Partial Thromboplastin Time 43.3 SEC (24.1-38.0)
[2021-04-14 06:31] LABS: Anion Gap 12 (12-20); Blood Urea Nitrogen 21 mg/dL (9-16); Carbon Dioxide 24 mmol/L (22-29); Chloride 105 mmol/L (96-108); Creatinine Clr Calc Pharmacy 72.9; Estimated Glomerular Filt Rate 53; Glucose Random 139 mg/dL (60-115); Magnesium 1.7 mg/dL (1.6-2.6); Phosphorus 3.3 mg/dL (2.7-4.5); Potassium 4.1 mmol/L (3.3-5.1); Sodium 137 mmol/L (135-145)
--- NOTE | 2021-04-14 09:38 | PC.NURSE ---
This RN spoke with patients arnold Pat who called EMS. Adilia expressed concerns regarding patient being discharged with pain medication and reports this being second overdose involving prescription meds. Technical Architect made aware of second overdose. Case management team notified. Plan for psych consult per MD. Patient A&O x4, drowsy but arousable, Narcan gtt turned off at 0620. Patient has no memory of events leading to admission - this RN educated patient. VSS - 97.9, 64 HR, 18 RR, 113/63, 99%. Patient transferred to [facility].
--- NOTE | 2021-04-14 12:44 | MHC.CM.PN ---
pt lives alone in her apt. she is independent in her care. she does have friends and family that live in the area and can help her should she need it. this [place]. patient has had recent back surgery at [facility] and it is unclear how she ambulates. at this time she is very lethargic laying in bed and not conversational . dc plan will most likely be home p a bhn evaluation. there is the possibility of inpt psych as a dc plan depending on the n findings. cm to revisit patient when she is more awake, alert and participative. cm to cont. to follow.
--- NOTE | 2021-04-14 13:12 | PM.EVENT ---
Event Note Date of Service: 04/14/21 Event Note: Events from last night noted patient admitted to intensive care unit early this morning due to overdose Briefly 50yo F,with pmhx of matthew-en-y gastric bypass, anastomic ulcer. CKD stage 3, diabetes, anxiety, DVT and PE, endometrial ca, seizures, status post pacemaker, underwent recent back surgery at [facility] on 04/10/21 patient was brought in To [place] ER after she was found unresponsive at home by her niece. EMS gave pt narcan in the field, she responded and became alert. Once in the ED, she was hypotensive in the 70's systolic and became unresponsive again, therefore patient was started on IV Narcan drip and was subsequently admitted to intensive care unit, where patient became more awake alert early this morning therefore Narcan drip was discontinued and patient was transferred to medical floor Patient niece informed that patient was given dilauded 60 tablets, 2 mg upon discharge,empty bottle was found at home Beside this patient is also on Ambien, and alprazolam due to anxiety. At present patient is awake does not recall what happened to her, she admits that maybe she took tablets more frequently than Recommended, she is being followed by a therapist and psychiatrist and has been continued on anxiolytics for quite some time She denies any worsening anxiety or depression, she denies intentional overdose Niece says the family checks on her often as she is not a high functioning adult. Exam patient awake alert normal speech Neck is supple no JVD Lungs clear to auscultation Heart regular rate rhythm Abdomen soft nontender Extremities no edema Neuro non focal Assessment and plan Drug overdose as per patient due to pain and not intentional, family concerned and requesting for psychiatric evaluation Will obtain psychiatric consultation, care team and N evaluation Will hold sedatives since patient remains sleepy and tired Adjust medications prior to discharge. All home medications including tizanidine, venlafaxine, Ambien and alprazolam on hold Will add Prilosec for GI prophylaxis.
--- NOTE | 2021-04-14 13:16 | MHC.CLN ---
PT CURRENTLY WITHOUT A DIET ORDER WILL INPUT NPO WHEN DIET TO ADVANCE RECOMMEND 1800DM BASED ON ESTIMATED NEEDS
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
--- NOTE | 2021-04-14 14:42 | P.CNPS_ITS ---
History of Present Illness Date of Service: 04/14/2021 Chief Complaint: Overdose Reason for Consult: Anxiety, depression, drug overdose Requesting physician: Catrachita Brice Discussed with referring provider: Yes Sources of Information: patient interviewed, chart reviewed and crisis/core team assessment reviewed HPI Narrative: Luz Marina is a 50-year-old female, who was admitted after opioid and benzodiazepine overdose. Patient has multiple medical issues and multiple providers outpatient, including recent surgery at [facility]. She has been seen many times in this [facility] ED. Patient also has a pacemaker. She apparently had had back surgery on SaturdayApril 10 of this week, and had been sent home with a script for Dilaudid 2 mg 60 tabs, a 5 day supply. This medication was verified in [facility]. At some point yesterday she appeared to take more than was intended as well as [facility], [facility] also revealed several short-term scripts for opioid pain medication, 2-3 days at a time, over the past 2 years. Her niece had gone to the home and had found her unresponsive. EMS was activated, patient was administered Narcan with good effect, and was transported [place] [facility] [place] she was administered Narcan and admitted to ICU, placed on Narcan drip. When this leader writer met with patient she had been transferred to a [facility] surg floor, Narcan drip had been discontinued. Patient was resting in bed. Appropriately groomed. Fully alert and oriented. No evidence of any type of withdrawals or distress noted or reported. Fully conversant with this leader writer. Others. She states that she did take the medicat ion, but does not recall taking more than prescribed. She then stated ?I was in a lot of physical pain ?. She reports that she does not have any intention of harm to self or others. When asked if she buys things off the street for pain or anxiety, she stated ?I have not, because I do not know what is in it ?. Patient was educated regarding buying substances off the street, and the serious adverse outcomes that could ensue. She stated that she understood. Patient reports she has never been hospitalized psychiatrically. She states that she has outpatient prescriber, Alejandro Farmer. She states that she has a therapist, and that she meets with her therapist every week. She states that currently the visits are via phone. She describes having [facility] insurance, and support through them. 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 She states that this is in process. She states that she does have a history of some anxiety and depression, but that at this time she feels ?very stable ?. She states that she does not feel she abuses substances, and does not feel that she needs to go inpatient for either substance use disorder or psychiatric symptoms. She states that she feels safe to go home. Patient reports that she does have Xanax 1 mg daily p.r.n. prescribed. She states she takes approximately 3 times per week. She does have Ambien 10 mg at bedtime p.r.n. prescribed. She states that she utilizes this approximately 2-3 times per week. Patient does report that she has amitriptyline 1-2 pills at night p.r.n. for sleep. She states that this is utilized almost nightly. Past Psychiatric History: No inpatient level of care in history. Reports she has psychiatric providers, including prescriber and therapist. Medical Evaluation Reviewed: Yes Multiple medical comorbidities. Personal & Social History: Patient single, lives alone in apartment. 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 Is currently on disability. Has family in area. Review of Systems Review of Systems Complete Review of systems negative except pertinent positives as noted in history and physical. [facility] Medical History Anastomotic ulcer S/P gastric bypass Anxiety Back pain CKD stage 3 secondary to diabetes Depression Diabetes Diverticulitis DVT of right axillary vein, acute Endometrial cancer Hypotension Pacemaker (~2015) Pulmonary embolus, left (~04/2020) Renal stones Seizure disorder Status post extracorporeal shock wave therapy Surgical History H/O tooth extraction History of esophagogastroduodenoscopy (~06/2020) History of Trisha-en-Y gastric bypass (~10/2019) History of sleeve gastrectomy (~2014) Hx laparoscopic cholecystectomy Hx of appendectomy Hx of hernia repair S/P CELESTINO (total abdominal hysterectomy) Family History: Father , reported no medical issues. Mother history of chronic mental illness and diabetes. Social History: Patient lives by self, on disability. Substance History: Denies any type of illicit substance use. Does drink alcohol, states 1-2 drinks daily. Trauma History: Patient did not reveal any trauma history to this leader writer. Diagnostics Vital Signs (24Hr): Vital Signs - 24 hr 04/13/21 23:09 04/13/21 23:26 04/13/21 23:34 Temperature 98.7 F 99.0 F Pulse Rate 75 73 Respiratory Rate 14 16 Blood Pressure 86/54 L 96/57 L 90/54 L Pulse Oximetry 98 98 04/14/21 00:00 04/14/21 00:34 04/14/21 01:55 Temperature Pulse Rate 72 74 88 Respiratory Rate 14 14 20 Blood Pressure 91/53 L 151/83 H 162/88 H Pulse Oximetry 100 100 100 04/14/21 01:57 04/14/21 03:00 04/14/21 03:44 Temperature 97.7 F Pulse Rate 92 75 80 Respiratory Rate 18 22 H 28 H Blood Pressure 162/88 H 121/70 Pulse Oximetry 100 100 100 04/14/21 05:00 04/14/21 06:00 04/14/21 07:00 Temperature 97.8 F 97.8 F Pulse Rate 66 66 67 Respiratory Rate 22 H 24 H 20 Blood Pressure 128/78 117/68 97/54 L Pulse Oximetry 99 99 99 04/14/21 08:00 04/14/21 11:01 04/14/21 13:20 Temperature 97.9 F 97.6 F 96.9 F Pulse Rate 64 64 67 Respiratory Rate 18 21 H 18 Blood Pressure 113/63 107/64 118/65 Pulse Oximetry 99 99 99 Body Mass Index 32.6 Labs Results: 04/14/21 05:51 04/14/21 05:51 Labs: Laboratory Results - last 48 hr 04/13/21 04/13/21 04/14/21 23:43 23:43 00:33 WBC RBC Hgb Hct MCV MCH MCHC RDW Plt Count MPV Immature Gran % (Auto) Neut % (Auto) Lymph % (Auto) [place] % (Auto) Eos % (Auto) Baso % (Auto) Lymph # (Auto) [place] # (Auto) Eos # (Auto) Baso # (Auto) Abs Immat Gran (auto) Absolute Neuts (auto) Absolute Nucleated RBC Nucleated RBC % (auto) Smear Tech's Comments Hold Purple Top SEE NOTE PT INR APTT VBG pH VBG pCO2 VBG pO2 VBG HCO3 VBG O2 Saturation VBG Base Excess Sodium 135 Potassium 4.5 Chloride 102 Carbon Dioxide 22 Anion Gap 16 BUN 26 H Creatinine 1.38 Estim Creat Clear Calc 57.5 Estimated GFR 40 Random Glucose 122 H D Calcium 8.1 L D Phosphorus Magnesium Total Bilirubin 0.5 AST 39 H D ALT 17 Alkaline Phosphatase 126 H Total Creatine Kinase 224 H Total Protein 5.7 L Albumin 3.3 L Lipase 9 Hold Red Top Hold Yellow Top Salicylates < 5.0 L Urine Opiates Screen Acetaminophen < 1 Ur Barbiturates Screen Ur Phencyclidine Scrn Ur Amphetamines Screen U Benzodiazepines Scrn Urine Cocaine Screen U Marijuana (THC) Screen COVID-19 (NATO) Negative COVID-19 Clin Com See Note 04/14/21 04/14/21 04/14/21 00:33 00:34 01:33 WBC 5.5 RBC 3.89 L Hgb 10.8 L Hct 32.9 L MCV 84.6 MCH 27.8 MCHC 32.8 RDW 12.1 Plt Count TNP MPV TNP Immature Gran % (Auto) 0.9 H Neut % (Auto) 70.6 Lymph % (Auto) 13.3 L [place] % (Auto) 10.1 Eos % (Auto) 4.6 H Baso % (Auto) 0.5 Lymph # (Auto) 0.7 L [place] # (Auto) 0.6 Eos # (Auto) 0.3 Baso # (Auto) 0.0 Abs Immat Gran (auto) 0.05 H Absolute Neuts (auto) 3.9 Absolute Nucleated RBC 0.000 Nucleated RBC % (auto) 0.0 Smear Tech's Comments VERIFIED Hold Purple Top PT INR APTT VBG pH VBG pCO2 VBG pO2 VBG HCO3 VBG O2 Saturation VBG Base Excess Sodium Potassium Chloride Carbon Dioxide Anion Gap BUN Creatinine Estim Creat Clear Calc Estimated GFR Random Glucose Calcium Phosphorus Magnesium Total Bilirubin AST ALT Alkaline Phosphatase Total Creatine Kinase Total Protein Albumin Lipase Hold Red Top See Note Hold Yellow Top See Note Salicylates Urine Opiates Screen POSITIVE H Acetaminophen Ur Barbiturates Screen Not Detected Ur Phencyclidine Scrn Not Detected Ur Amphetamines Screen Not Detected U Benzodiazepines Scrn POSITIVE H Urine Cocaine Screen Not Detected U Marijuana (THC) Screen POSITIVE H COVID-19 (NATO) COVID-19 [place] Com 04/14/21 04/14/21 04/14/21 03:18 05:49 05:51 WBC 6.4 RBC 3.68 L Hgb 10.2 L Hct 31.7 L MCV 86.1 MCH 27.7 MCHC 32.2 RDW 11.9 Plt Count 216 D MPV 9.5 Immature Gran % (Auto) 0.3 Neut % (Auto) 85.8 H Lymph % (Auto) 5.3 L [place] % (Auto) 6.1 Eos % (Auto) 2.3 Baso % (Auto) 0.2 Lymph # (Auto) 0.3 L [place] # (Auto) 0.4 Eos # (Auto) 0.2 Baso # (Auto) 0.0 Abs Immat Gran (auto) 0.02 Absolute Neuts (auto) 5.5 Absolute Nucleated RBC 0.000 Nucleated RBC % (auto) 0.0 Smear Tech's Comments Hold Purple Top PT INR APTT VBG pH 7.37 7.38 VBG pCO2 40 45 VBG pO2 126 41 VBG HCO3 23 27 H VBG O2 Saturation 98.0 73.0 VBG Base Excess -1.6 1.9 Sodium Potassium Chloride Carbon Dioxide Anion Gap BUN Creatinine Estim Creat Clear Calc Estimated GFR Random Glucose Calcium Phosphorus Magnesium Total Bilirubin AST ALT Alkaline Phosphatase Total Creatine Kinase Total Protein Albumin Lipase Hold Red Top Hold Yellow Top Salicylates Urine Opiates Screen Acetaminophen Ur Barbiturates Screen Ur Phencyclidine Scrn Ur Amphetamines Screen U Benzodiazepines Scrn Urine Cocaine Screen U Marijuana (THC) Screen COVID-19 (NATO) COVID-19 Clin Com 04/14/21 04/14/21 05:51 05:51 WBC RBC Hgb Hct MCV MCH MCHC RDW Plt Count MPV Immature Gran % (Auto) Neut % (Auto) Lymph % (Auto) [place] % (Auto) Eos % (Auto) Baso % (Auto) Lymph # (Auto) [place] # (Auto) Eos # (Auto) Baso # (Auto) Abs Immat Gran (auto) Absolute Neuts (auto) Absolute Nucleated RBC Nucleated RBC % (auto) Smear Tech's Comments Hold Purple Top PT 13.2 H INR 1.1 APTT 43.3 H VBG pH VBG pCO2 VBG pO2 VBG HCO3 VBG O2 Saturation VBG Base Excess Sodium 137 Potassium 4.1 Chloride 105 Carbon Dioxide 24 Anion Gap 12 BUN 21 H Creatinine 1.09 Estim Creat Clear Calc 72.9 Estimated GFR 53 Random Glucose 139 H Calcium 8.0 L Phosphorus 3.3 Magnesium 1.7 Total Bilirubin AST ALT Alkaline Phosphatase Total Creatine Kinase Total Protein Albumin Lipase Hold Red Top Hold Yellow Top Salicylates Urine Opiates Screen Acetaminophen Ur Barbiturates Screen Ur Phencyclidine Scrn Ur Amphetamines Screen U Benzodiazepines Scrn Urine Cocaine Screen U Marijuana (THC) Screen COVID-19 (NATO) COVID-19 Clin Com Imaging Radiology Impressions: ITS Impressions Chest X-Ray 04/14/21 08:25 IMPRESSION: No evidence for acute disease in the chest. Mental Status Exam Mental Status Exam Patient Appearance: Fatigued, Disheveled and Appropriate Patient Orientation: Person, Place, Time and Situation Level of Consciousness: Awake and Appropriate Patient Behavior: Appropriate and Cooperative Mood Description: Appropriate Affect Description: Blunted and Flat Patient Cognition Impaired: No Ability to Follow Directions: Excellent Speech Pattern: Clear Memory Description: Intact ( Memory grossly intact. However patient does not fully remember what happened yesterday at home, states may have taken more than daily dose dilaudid due to pain. ) Hallucinations: None Delusions: Not Present Thought Process: Intact Thought Content: positive for Intact Judgement: Fair Judgement and Insight: Judgment and insight grossly intact. However, judgment somewhat impaired regarding use of pain medications as prescribed, as noted by accidental overdose. Medications Medications Current Medications Generic Name Dose Route Start Last Admin Trade Name Freq PRN Reason Stop Dose Admin Heparin Sodium (Porcine) 5,000 unit 04/14/21 02:30 04/14/21 02:58 Heparin Sodium,Porcine 5,000 Unit/Ml Vial SUBCUT 5,000 unit Q12H LUPE Administration Allergies Allergies Allergy/AdvReac Type Severity Reaction Status Date / Time egg [EGGS] AdvReac Intermediate NAUSEA/VOMI Verified 09/26/20 17:45 TING sumatriptan [From IMITREX] AdvReac Intermediate HEART Verified 09/26/20 17:45 PALPITATIONS Ibuprofen Allergy Unknown Unknown Uncoded 09/01/20 14:56 Assessment & Plan Assessment & Plan (1) Narcotic overdose: Qualifiers: Encounter type: initial encounter Injury intent: accidental or unintentional Qualified Code(s): T40.601A - Poisoning by unspecified narcotics, accidental (unintentional), initial encounter Status: Acute Code(s): T40.601A - Poisoning by unspecified narcotics, accidental (unintentional), initial encounter Recommendations: Through chart review including a [facility] search and patient interview, it appears that this was an accidental overdose. Recommend continue monitoring patient for any side effects, otherwise appears psychiatrically stable at this time. no evidence of SI, either active or passive. No plan or intent noted. Denies that this was in any way a suicide attempt. Denies any issues of substa nce use disorder. (2) Benzodiazepine overdose: Qualifiers: Encounter type: initial encounter Injury intent: accidental or unintentional Qualified Code(s): T42.4X1A - Poisoning by benzodiazepines, accidental (unintentional), initial encounter Status: Acute Code(s): T42.4X1A - Poisoning by benzodiazepines, accidental (unintentional), initial encounter Recommendations: Patient appears to have been prescribed Xanax consistently every month without issue. Yesterday's overdose appears to be accidental. Would recommend patient follow-up with outpatient provider going forward regarding use of benzodiaz epines. recommend resume Xanax 1 mg daily p.r.n.. Recommend resume Ambien p.r.n. for sleep. Recommend withhold amitriptyline, due to potential for overdose and also history of cardiac issues. This leader writer has spoken to CARES team provider. If, as patient becomes medically stable, there is any concern for safety, provider could request another eval by crisis or CARES team. However, this wr iter feels that patient is psychiatrically stable at this time, not of danger of harm to self or others, and should follow-up with her outpatient providers going forward, upon discharge. Greater than 50% of the session was spent on counseling and/or coordination of care
[2021-04-14] MEDS: Acetaminophen 325 MG TABLET 650 MG PO (21:19)
[2021-04-15] VITALS (7 sets, daily range): BP systolic 85–160; BP diastolic 52–93; PULSE 61–77; RESP 15–18; TEMP 36.1–36.8; O2SAT 96–99; BMI 33.5
[2021-04-15 05:45] LABS: VBG Base Excess 3.1 mmol/L; VBG HCO3 27 mmol/L (22-26); VBG pCO2 42 mmHg; VBG pH 7.42 (7.32-7.43); VBG pO2 66 mmHg
[2021-04-15 05:48] LABS: Venous Blood Gas Refer to POC result
[2021-04-15 05:50] LABS: INTERNATIONAL NORM RATIO 1.1 (0.9-1.1)
[2021-04-15 05:53] LABS: Partial Thromboplastin Time 41.4 SEC (24.1-38.0)
[2021-04-15 06:17] LABS: Alanine Aminotransferase 16 U/L (0-31); Albumin Level 3.1 g/dL (3.5-5.0); Alkaline Phosphatase 108 U/L (39-117); Anion Gap 10 (12-20); Aspartate Amino Transferase 22 U/L (5-31); Bilirubin Total 0.5 mg/dL (0.0-1.0); Blood Urea Nitrogen 17 mg/dL (9-16); Calcium 8.5 mg/dL (8.4-10.2); Carbon Dioxide 27 mmol/L (22-29); Chloride 105 mmol/L (96-108); Creatinine Clr Calc Pharmacy 76.9; Estimated Glomerular Filt Rate 57; Glucose Random 77 mg/dL (60-115); Magnesium 1.7 mg/dL (1.6-2.6); Phosphorus 3.5 mg/dL (2.7-4.5); Potassium 4.1 mmol/L (3.3-5.1); Sodium 138 mmol/L (135-145); Total Protein 5.3 g/dL (6.5-8.0)
--- NOTE | 2021-04-15 13:34 | P.PNIM_ITS ---
Subjective Subjective Date of Service: 04/15/21 Interval History: Feels tired. Postop pain controlled. Adamantly denies intentional overdose. No other complaints. Physical Exam Vital Signs: Vital Signs: Last Vital Signs Temp 97.7 F 04/15/21 11:41 Pulse 65 04/15/21 11:41 Resp 18 04/15/21 11:41 BP 113/75 04/15/21 11:41 Pulse Ox 98 04/15/21 11:41 Oxygen Flow Rate 3 04/13/21 23:09 Body Mass Index 33.5 Gen: in no acute distress HEENT: sclera anicteric, moist mucus membranes Neck: supple Lungs: clear to auscultation bilaterally Heart: regular rate and rhythm, no murmurs Abd: soft, non-tender, non-distended Ext: no edema Skin: warm/well-perfused Neuro: alert and oriented x3, no focal findings Psych: appropriate affect Objective Data Current Medications Generic Name Dose Route Start Last Admin Trade Name Freq PRN Reason Stop Dose Admin Acetaminophen 650 mg 04/14/21 20:45 04/14/21 21:19 Acetaminophen 325 Mg Tablet PO 650 mg Q6H PRN Administration Pain, Mild (Pain Scale 1-3) Alprazolam 0.25 mg 04/14/21 16:14 Alprazolam 0.25 Mg Tablet PO BID PRN anxiety Heparin Sodium (Porcine) 5,000 unit 04/14/21 02:30 04/15/21 03:06 Heparin Sodium,Porcine 5,000 Unit/Ml Vial SUBCUT Not Given Q12H LUPE Labs CBC & Chem 7: 04/14/21 05:51 04/15/21 05:32 Labs: Laboratory Results - last 24 hr 04/15/21 04/15/21 04/15/21 05:32 05:32 05:38 PT 13.0 INR 1.1 APTT 41.4 H VBG pH 7.42 VBG pCO2 42 VBG pO2 66 VBG HCO3 27 H VBG O2 Saturation 92.0 VBG Base Excess 3.1 Sodium 138 Potassium 4.1 Chloride 105 Carbon Dioxide 27 Anion Gap 10 L BUN 17 H Creatinine 1.02 Estim Creat Clear Calc 76.9 Estimated GFR 57 Random Glucose 77 D Calcium 8.5 D Phosphorus 3.5 Magnesium 1.7 Total Bilirubin 0.5 AST 22 D ALT 16 Alkaline Phosphatase 108 Total Protein 5.3 L Albumin 3.1 L Quality Stroke Does the patient have a stroke diagnosis?: No VTE Prior VTE?: Yes VTE Risk Level:: Medical - moderate - high VTE Device Contraindication: N/A - Device Ordered VTE Drug Contraindication: N/A - Med Ordered Assessment and Plan (1) Narcotic overdose: Status: Acute Assessment and Plan: hospital d#2 50yo F with hx Trisha-en-Y gastric bypass complciated by anasatomitc ulcer, CKD3, DM2, anxiety, DVT/PE, endometrial CA, seizures, history PPM placement recent back surgery at [facility] 04/10/21 [place] [facility] [place] un[place], hypotensive requiring IV naloxone gtt in ICU suspect accidental overdose # narcotic overdose - 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 - avoid further use of opioids # postoperative pain - continue tizanidine # anxiety - resume alprazolam, zolpidem, venlafaxine; avoid amitriptyline # VTE ppx - UFH
[2021-04-15] MEDS: Heparin Sodium,Porcine 5,000 UNIT/ML VIAL 5000 UNIT SUBCUT (14:25)
[2021-04-15] MEDS: Omeprazole 20 MG CAPSULE.DR PO (15:38)
[2021-04-15] MEDS: Melatonin 3 MG TABLET 6 MG PO (20:13)
[2021-04-15] MEDS: Acetaminophen 325 MG TABLET 650 MG PO (20:13)
[2021-04-15] MEDS: TiZANidine HCL 4 MG TABLET 2 MG PO (20:14)
[2021-04-16 03:38] VITALS: BP 138/74; PULSE 63; RESP 16; TEMP 36.3; O2SAT 99
[2021-04-16] MEDS: Omeprazole 20 MG CAPSULE.DR PO (06:08)
[2021-04-16 06:58] VITALS: BP 100/61; PULSE 63; RESP 18; TEMP 35.7; O2SAT 99
[2021-04-16 07:28] VITALS: BMI 32.0
[2021-04-16] MEDS: Acetaminophen 325 MG TABLET 650 MG PO (07:31)
[2021-04-16] MEDS: Venlafaxine HCl ER 150 MG CAP.ER.24H PO (08:21)
[2021-04-16] MEDS: TiZANidine HCL 4 MG TABLET 2 MG PO (08:22)
[2021-04-16 11:06] VITALS: BP 122/73; PULSE 60; RESP 20; TEMP 36; O2SAT 99
[2021-04-16] MEDS: Heparin Sodium,Porcine 5,000 UNIT/ML VIAL 5000 UNIT SUBCUT (14:31)
[2021-04-16 15:03] VITALS: BP 121/65; PULSE 72; RESP 15; TEMP 36.3; O2SAT 97
--- NOTE | 2021-04-16 15:06 | PM.DS ---
DS: Providers Provider Date of Service: 04/16/21 Date of admission: 04/14/21 02:16 Primary care physician: Tracee Cabrera MD Consults: 04/14/21 10:21 Consult to Care Team Routine Comment: Reason for consultation: drug overdose 04/14/21 11:47 Consult to Psychiatry Routine Consulting Provider: Jose Elias Cast Reason for consultation: anxiety/drug overdose Has provider been notified: No 04/16/21 07:22 Consult to Care Team Stat Comment: Reason for consultation: crisis eval, medically cleared DS: Diagnosis Discharge Diagnosis (1) Narcotic overdose: Status: Acute (2) Hypotension: Status: Acute Problem details: Continue midodrine, presently aymptomatic (3) Accidental overdose: Status: Acute (4) Postoperative pain: Status: Acute DS: Medications Discharge Medications Home Medications: Home Medications Medication Instructions Recorded Confirmed alprazolam 0.5 - 1 tab PO DAILY PRN 04/13/21 04/13/21 calcium citrate-vitamin D3 1 tab PO BID 04/13/21 04/13/21 melatonin 1 cap PO BEDTIME 04/13/21 04/13/21 pantoprazole 1 tab PO DAILY 04/13/21 04/13/21 venlafaxine 1 cap PO DAILY 04/13/21 04/13/21 zolpidem 0.5 - 1 tab PO BEDTIME PRN 04/13/21 04/13/21 Previous Rx's Medication Instructions Recorded acetaminophen 650 mg PO Q8H PRN #60 tab 04/16/21 tizanidine 2 mg PO TID PRN #30 tab 04/16/21 DS: Summary Hospital Course Hospital Course: From history and physical by admitting applications instructor ILA Perry: Pt is a 50yo F with a past med hx of matthew-en-y gastric bypass, anastomic ulcer. CKD stage 3 2/2 diabetes, anxiety, DVT and PE, endometrial ca, seizures, pacemaker, renal stones, diverticulitis and recent back surgery at [facility] on 04/10/21 who was BIBA after being found unresponsive at home by her niece. EMS gave pt narcan in the field, she responded and became alert. Once in the ED, she was hypotensive in the 70's systolic and became unresponsive again. After more Narcan, she was put on a Narcan drip. Pt's niece said the pt was dispensed 40 2mg tablets of dilauded for her back pain s/p surgery. She was given the 40 tablets 2 days ago and the bottle was empty. Pt also takes xanax and was given a rx for ativan, it is unclear how much of these meds she took, if any. Apparently, the pt has a hx of overdosing. Niece said it was unintentional, it's unclear how this was determined. Niece says the family checks in on her often as she is not a high functioning adult. Labs sig for BUN 26, Cr 1.38, AST 39, Alk Phos 126, albumin 3.3, tox screen was positive for opiates, benzos and marijuana, Covid negative. Current bp is 162/88, other VSS. at my bedside exam, pt is mumbling about having to go to the bathroom, she is on a bed iyer. denies pain but is somnolent and mumbling. PE otherwise unremarkable. Pt will be brought to the ICU for mgmt of her overdose. The patient required IV naloxone drip in the ICU, which was weaned off. Afterwards, the patient was stepped down to the medical-surgical floor. She was seen by the CARE Team and by the psychiatry bath design sales consultant and there was no suspicion that she had overdosed intentionally. She was instructed to stop all use of opioids and to manage postoperative pain with acetaminophen ER and tizanidine and to follow up with her surgeon as well as with her therapist and psychiatric provider. She was also instructed to stop amitriptylline. VNA services will be arranged through [facility]. Time Spent with Patient Time attestation: Total time spent providing and/or coordinating discharge services: 40 Discharge coordination time: Greater than 30 minutes Quality: Stroke Does the patient have a stroke diagnosis?: No Physical Exam Vital Signs: Vital Signs: Last Vital Signs Temp 97.4 F 04/16/21 15:03 Pulse 72 04/16/21 15:03 Resp 15 04/16/21 15:03 BP 121/65 04/16/21 15:03 Pulse Ox 97 04/16/21 15:03 Oxygen Flow Rate 3 04/13/21 23:09 Body Mass Index 32.0 Gen: in no acute distress HEENT: sclera anicteric, moist mucus membranes Neck: supple Lungs: clear to auscultation bilaterally Heart: regular rate and rhythm, no murmurs Abd: soft, obese, non-tender, non-distended Ext: no edema Skin: warm/well-perfused Neuro: alert and oriented x3, no focal findings Psych: appropriate affect DS: Data Data Completed and Pending Completed studies during hospitalization [Text1]: Laboratory Results WBC 6.4 X10*3/uL (4.8-10.8) 04/14/21 05:51 RBC 3.68 X10*6/uL (4.20-5.50) L 04/14/21 05:51 Hgb 10.2 g/dl (12.0-16.0) L 04/14/21 05:51 Hct 31.7 % (37-47) L 04/14/21 05:51 MCV 86.1 fL (80-98) 04/14/21 05:51 MCH 27.7 pg (27.0-33.0) 04/14/21 05:51 MCHC 32.2 g/dl (31.0-35.0) 04/14/21 05:51 RDW 11.9 % (11.0-16.0) 04/14/21 05:51 Plt Count 216 X10*3/uL (160-400) D 04/14/21 05:51 MPV 9.5 fL (9.4-12.3) 04/14/21 05:51 Immature Gran % (Auto) 0.3 % (0.0-0.4) 04/14/21 05:51 Neut % (Auto) 85.8 % (45-73) H 04/14/21 05:51 Lymph % (Auto) 5.3 % (20-40) L 04/14/21 05:51 [place] % (Auto) 6.1 % (2-11) 04/14/21 05:51 Eos % (Auto) 2.3 % (0-4) 04/14/21 05:51 Baso % (Auto) 0.2 % (0-2) 04/14/21 05:51 Lymph # (Auto) 0.3 X10*3/uL (1.2-4.9) L 04/14/21 05:51 [place] # (Auto) 0.4 X10*3/uL (0.1-1.2) 04/14/21 05:51 Eos # (Auto) 0.2 X10*3/uL (0.0-0.4) 04/14/21 05:51 Baso # (Auto) 0.0 X10*3/uL (0.0-0.2) 04/14/21 05:51 Abs Immat Gran (auto) 0.02 X10*3/uL (0.00-0.03) 04/14/21 05:51 Absolute Neuts (auto) 5.5 X10*3/uL (2.0-8.3) 04/14/21 05:51 Absolute Nucleated RBC 0.000 X10*3/uL (0.0-0.012) 04/14/21 05:51 Nucleated RBC % (auto) 0.0 /100WBC (0.0-0.2) 04/14/21 05:51 Smear Tech's Comments VERIFIED 04/14/21 00:34 Hold Purple Top SEE NOTE 04/14/21 00:33 PT 13.0 SEC (10.8-13.0) 04/15/21 05:32 INR 1.1 (0.9-1.1) 04/15/21 05:32 APTT 41.4 SEC (24.1-38.0) H 04/15/21 05:32 VBG pH 7.42 (7.32-7.43) 04/15/21 05:38 VBG pCO2 42 mmHg 04/15/21 05:38 VBG pO2 66 mmHg 04/15/21 05:38 VBG HCO3 27 mmol/L (22-26) H 04/15/21 05:38 VBG O2 Saturation 92.0 % 04/15/21 05:38 VBG Base Excess 3.1 mmol/L 04/15/21 05:38 Sodium 138 mmol/L (135-145) 04/15/21 05:32 Potassium 4.1 mmol/L (3.3-5.1) 04/15/21 05:32 Chloride 105 mmol/L (96-108) 04/15/21 05:32 Carbon Dioxide 27 mmol/L (22-29) 04/15/21 05:32 Anion Gap 10 (12-20) L 04/15/21 05:32 BUN 17 mg/dL (9-16) H 04/15/21 05:32 Creatinine 1.02 mg/dL (0.5-1.4) 04/15/21 05:32 Estim Creat Clear Calc 76.9 04/15/21 05:32 Estimated GFR 57 04/15/21 05:32 Random Glucose 77 mg/dL (60-115) D 04/15/21 05:32 Calcium 8.5 mg/dL (8.4-10.2) D 04/15/21 05:32 Phosphorus 3.5 mg/dL (2.7-4.5) 04/15/21 05:32 Magnesium 1.7 mg/dL (1.6-2.6) 04/15/21 05:32 Total Bilirubin 0.5 mg/dL (0.0-1.0) 04/15/21 05:32 AST 22 U/L (5-31) D 04/15/21 05:32 ALT 16 U/L (0-31) 04/15/21 05:32 Alkaline Phosphatase 108 U/L (39-117) 04/15/21 05:32 Total Creatine Kinase 224 U/L (26-140) H 04/13/21 23:43 Total Protein 5.3 g/dL (6.5-8.0) L 04/15/21 05:32 Albumin 3.1 g/dL (3.5-5.0) L 04/15/21 05:32 Lipase 9 U/L (8-78) 04/13/21 23:43 Hold Red Top See Note 04/14/21 00:33 Hold Yellow Top See Note 04/14/21 00:33 Salicylates < 5.0 mg/dL (15-30) L 04/13/21 23:43 Urine Opiates Screen POSITIVE (Not Detect) H 04/14/21 01:33 Acetaminophen < 1 mcg/mL (<30) 04/13/21 23:43 Ur Barbiturates Screen Not Detected (Not Detect) 04/14/21 01:33 Ur Phencyclidine Scrn Not Detected (Not Detect) 04/14/21 01:33 Ur Amphetamines Screen Not Detected (Not Detect) 04/14/21 01:33 U Benzodiazepines Scrn POSITIVE (Not Detect) H 04/14/21 01:33 Urine Cocaine Screen Not Detected (Not Detect) 04/14/21 01:33 U Marijuana (THC) Screen POSITIVE (Not Detect) H 04/14/21 01:33 COVID-19 (NATO) Negative (Negative) 04/13/21 23:43 COVID-19 Clin Com See Note 04/13/21 23:43 Impressions Chest X-Ray 04/14/21 08:25 IMPRESSION: No evidence for acute disease in the chest. Discharge Plan Discharge Anticipated Discharge Date/Time: 04/16/21 14:26 Patient Disposition: Home Health Service Discharge Diagnosis: unintentional opioid overdose Referrals: Tracee Cabrera MD [Primary Care Provider] - 1 Week Discharge Medications: New tizanidine 4 mg Tablet 2 mg PO TID PRN (Reason: back pain/muscle spasm) Qty: 30 RF: 0 acetaminophen 650 mg tablet extended release 650 mg PO Q8H PRN (Reason: back pain) Qty: 60 RF: 0 Continued alprazolam 1 mg tablet 0.5 - 1 tab PO DAILY PRN (Reason: Anxiety) RF: 0 venlafaxine 150 mg capsule,extended release 24hr 1 cap PO DAILY RF: 0 pantoprazole 40 mg tablet,delayed release (DR/EC) 1 tab PO DAILY RF: 0 zolpidem 10 mg tablet 0.5 - 1 tab PO BEDTIME PRN (Reason: insomnia) RF: 0 calcium citrate-vitamin D3 315 mg-5 mcg (200 unit) tablet 1 tab PO BID RF: 0 melatonin 5 mg capsule 1 cap PO BEDTIME RF: 0 Discontinued tizanidine 2 mg tablet 1 tab PO BID RF: 0 amitriptyline 25 mg tablet 1 - 2 tab PO BEDTIME PRN (Reason: Insomnia) RF: 0 Discharge Orders: Discharge Order (Routine); Ordered 04/16/21 Ordered By: Reebkah Cruz Diet: advance to usual diet Activity on Discharge: As tolerated Stand Alone Forms: Patient Portal Discharge page Care Plan Goals: relief of back pain without opioids Health Concerns: Accidental opiate overdose Postoperative pain Plan of Treatment: Avoid all opioids including hydromorphone and tramadol Take acetaminophen ER for pain and tizanidine for back muscle spasm Home PT Follow up with your back surgeon as scheduled Stop amitriptyline Follow up with your therapist and psychiatric prescriber Assessment: As above
--- NOTE | 2021-04-16 16:20 | MHC.CM.PN ---
PT CLEARED TO [place] HOME TODAY WITH VNA FOR PT AND SN. CM CALLED [facility] ([phone]) AND SPOKE TO RN CARDIAC REHAB NURSE ANNALISA WHO REQUESTED THE REFERRAL BE SENT OUT. DUE TO CONCERNS REGARDING THE PT HAVING LEFT OVER PRESCRIPTION NARCOTICS IN THE HOME A REFERRAL WAS MADE TO [facility] THEY WILL SEE PT TOMORROW. PTS FAMILY WILL TRANSPORT AT [place]
--- NOTE | 2021-04-16 16:31 | P.F2F_ITS ---
Service Date Service Date: 04/16/21 Encounter Date of encounter: 04/16/21 Reasons for Services Signs and symptoms assessed: Postoperative pain Accidental opioid overdose Reason for custodial: postoperative assessment and/or care, medication management, medication treatment and teach disease management Reason for physical therapy: home safety and mobility, therapeutic exercises, restore joint function, gait/transfer training, assess need for DME, ADL training and energy conservation Overseeing Care: Tracee Cabrera Homebound: Leaving the home is medically contraindicated at this time without the asist of a device and/or another person due th the listed conditions above and below. Reason homebound: unsteady gait / fall risk, pain with ambulation and weakness related to hospital stay Homebound supporting statement: The patient was [place] [facility] for accidental opioid overdose due to excess consumption of PO hydromorphone for postoperative pain after back surgery. Requesting VNA services for home PT and medication management. Certification: Based on the above findings, I certify that this patient is confined to the home and needs intermittent custodial care, physical therapy and/or speech therapy, or continues to need occupational therapy. The patient is under my care, and I have initiated the establishment of the plan of care. The patient will be followed by a physician who will periodically review the plan of care.
--- NOTE | 2021-04-17 14:26 | MHC.CM.PN ---
CM RECEIVED A MESSAGE FROM UNHAIRING INSPECTOR FROM [facility] REQUESTING FACE TO FACE BE FAXED TO [phone], CONTACT NUMBER [phone], FACE TO FACE FAXED AT [phone].
== END 2021-04-16 17:59 | disposition home health service (06) | DRG 918 ==
LOC: HO.ED 04-14 02:08 → HO.EDOVER 04-14 02:37 → HO.ICU 04-14 02:38 → HO.S3 04-14 12:53
PROVIDERS: Admitting Provider Physician Assistant; Emergency Provider Emergency Medicine Emergency Medical Services; PCP Internal Medicine; Visit Provider Family Medicine
DX: T40.2X1A Poisoning by other opioids, accidental (unintentional), initial encounter (principal); T42.4X1A Poisoning by benzodiazepines, accidental (unintentional), initial encounter; I95.9 Hypotension, unspecified; I50.83 High output heart failure; G89.18 Other acute postprocedural pain; F41.9 Anxiety disorder, unspecified; Y92.009 Unspecified place in unspecified non-institutional (private) residence as the place of occurrence of the external cause; Z86.718 Personal history of other venous thrombosis and embolism; Z20.822 Contact with and (suspected) exposure to COVID-19; Z95.0 Presence of cardiac pacemaker; Z88.6 Allergy status to analgesic agent; Z79.899 Other long term (current) drug therapy
CPT/HCPCS: 36415; 71045; 80048; 80053; 80143; 80179; 80307; 82550; 83690; 83735; 84100; 85025; 85610; 85730; 87635; 97161; 99285; J2405

== ENCOUNTER 2021-05-12 23:03 | Emergency (ER) | payer OTHER, SELFPAY ==
[2021-05-12 23:13] VITALS: BP 126/72; PULSE 99; RESP 18; TEMP 36.9; O2SAT 98; BMI 30.8
--- NOTE | 2021-05-13 00:41 | ED.HA ---
HPI - Headache General Chief Complaint: Headache Stated Complaint: head pain Time Seen by Provider: 05/13/21 00:41 Source: patient Mode of arrival: ambulatory Limitations: no limitations History of Present Illness HPI Narrative: Patient history of migraine headaches usually well controlled and did not get any headache for long time complaining of tingling sensation front of the forehead with headache for last few hours no neuro deficit no vomiting feel nauseated. Patient took 1 mg of Ativan earlier today as she was feeling anxious with the headache Related Data Home Medications Medication Instructions Recorded Confirmed alprazolam 0.5 - 1 tab PO DAILY PRN 04/13/21 04/13/21 calcium citrate-vitamin D3 1 tab PO BID 04/13/21 04/13/21 melatonin 1 cap PO BEDTIME 04/13/21 04/13/21 pantoprazole 1 tab PO DAILY 04/13/21 04/13/21 venlafaxine 1 cap PO DAILY 04/13/21 04/13/21 zolpidem 0.5 - 1 tab PO BEDTIME PRN 04/13/21 04/13/21 Previous Rx's Medication Instructions Recorded acetaminophen 650 mg PO Q8H PRN #60 tab 04/16/21 tizanidine 2 mg PO TID PRN #30 tab 04/16/21 Allergies Allergy/AdvReac Type Severity Reaction Status Date / Time egg [EGGS] AdvReac Intermediate NAUSEA/VOMI Verified 09/26/20 17:45 TING sumatriptan [From IMITREX] AdvReac Intermediate HEART Verified 09/26/20 17:45 PALPITATIONS Ibuprofen Allergy Unknown Unknown Uncoded 09/01/20 14:56 Review of Systems Review of Systems: Yes all other systems are reviewed and are negative [facility] Past Medical History Medical History Anastomotic ulcer S/P gastric bypass Anxiety Back pain CKD stage 3 secondary to diabetes Depression Diabetes Diverticulitis DVT of right axillary vein, acute Endometrial cancer Hypotension Pacemaker (~2015) Pulmonary embolus, left (~04/2020) Renal stones Seizure disorder Status post extracorporeal shock wave therapy Surgical History H/O tooth extraction History of esophagogastroduodenoscopy (~06/2020) History of Trisha-en-Y gastric bypass (~10/2019) History of sleeve gastrectomy (~2014) Hx laparoscopic cholecystectomy Hx of appendectomy Hx of hernia repair S/P CELESTINO (total abdominal hysterectomy) Family History Family History Father No problems noted. Mother Diabetes Chronic mental illness Father No problems noted. Mother No problems noted. Social History Social History Household Members: None and Unknown / Unable to assess Housing: Unknown / Unable to assess Do you presently have visiting nurse or other home services: No Unable to assess alcohol history related to: Unable to respond Alcohol intake: current Alcohol intake frequency: 0-2 drinks per day Second Hand Smoke Exposure: No Substance Use Type: Marijuana, Opiates and Prescription Drugs Advance Directives: No Advance Directives Information Provided: No Patient : No service: No Current occupational status: disabled Physical Exam Vital Signs: Vital Signs: Last Vital Signs Temp 98.5 F 05/12/21 23:13 Pulse 99 05/12/21 23:13 Resp 18 05/12/21 23:13 BP 126/72 05/12/21 23:13 Pulse Ox 98 05/12/21 23:13 Body Mass Index 30.8 Appearance: Alert. Oriented X3. No acute distress. Feels anxious Eyes: PERRLA, No Nystagmus ENT: Pharynx normal. Oral Mucosa moist no temporal artery tenderness Neck: Normal inspection. Neck supple. CVS: Normal heart rate and rhythm. Pulses normal. Respiratory: No respiratory distress. Equal air entry bilateral, Abdomen: Soft and nontender. Skin: Skin warm and dry. Normal skin color. Normal skin turgor. Extremities: No lower extremity edema. No calf tenderness Neuro: Oriented X 3. No motor deficit. No sensory deficit.No cerebellar signs , cranial nerves II-XII intact MDM - Headache MDM Narrative Medical decision making narrative: Patient continued to have headache poor response to Zofran , Fioricet and IM Toradol will give IV fluids and IV Benadryl Differential Diagnosis Differential diagnosis: Likely migraine Discharge Plan Discharge Prescriptions: No Action alprazolam 1 mg tablet 0.5 - 1 tab PO DAILY PRN (Reason: Anxiety) RF: 0 venlafaxine 150 mg capsule,extended release 24hr 1 cap PO DAILY RF: 0 pantoprazole 40 mg tablet,delayed release (DR/EC) 1 tab PO DAILY RF: 0 zolpidem 10 mg tablet 0.5 - 1 tab PO BEDTIME PRN (Reason: insomnia) RF: 0 calcium citrate-vitamin D3 315 mg-5 mcg (200 unit) tablet 1 tab PO BID RF: 0 melatonin 5 mg capsule 1 cap PO BEDTIME RF: 0 tizanidine 4 mg Tablet 2 mg PO TID PRN (Reason: back pain/muscle spasm) Qty: 30 RF: 0 acetaminophen 650 mg tablet extended release 650 mg PO Q8H PRN (Reason: back pain) Qty: 60 RF: 0
[2021-05-13] MEDS: Butalb/Acetamin/Caff 50/325/40 TABLET 1 TAB PO (00:53)
[2021-05-13] MEDS: Ketorolac Tromethamine 60 MG/2 ML VIAL IM (02:06)
[2021-05-13] MEDS: 0.9 % Sodium Chloride 1,000 ML 999 ML IVCONT (03:45)
[2021-05-13] MEDS: diphenhydrAMINE HCL 50 MG/ML VIAL 25 MG IVPUSH (03:46)
--- NOTE | 2021-05-13 05:29 | PC.NURSE ---
PT SLEEPING FOLLOWING BENADRYL, DID NOT WAKE HER FOR PAIN LEVEL.
--- NOTE | 2021-05-13 06:42 | PC.NURSE ---
PT HAS BEEN SLEEPING FOR THE PAST 2-3 HOURS WHILE FLUID INFUSING. HAD TO WAKE PATIENT FOR DISCHARGE. PT GIVEN DISCHARGE PAPERWORK, WHICH INCLUDED RX FOR FIORICET. PT ASKING FOR TRAMADOL BEFORE LEAVING. PT IS DRIVING HER CAR HOME. PT UPSET WITH THIS RN, BECAUSE SHE WAS TOLD MD WOULD NOT LOKELY GIVE HER A NARCOTIC BEFORE DRIVING. PT DID NOT ASK FOR TRAMADOL HOURS AGO. PT INSISTED THAT I ASK MD, BOTH MD'S ON DUTY WERE ASKED AND BOTH SAID NO. PT ASKED FOR TYLENOL ARTHRITIS RX AFTER DISCHARGE, PT ADMITS IT IS OVER THE COUNTER AND WANTS AN RX SO I DON'T HAVE TO PAY FOR IT. PT UPSET AT THIS RN, HOT DIE PICKER BROUGHT OVER TO SPEAK TO PATIENT. PT'S NIECE CALLED EARLY IN THE REQUESTING INFORMATION, ASKING IF PT OVERDOSED ON PAIN PILLS LIKE IN THE PAST.
== END 2021-05-13 06:48 | disposition home or self-care (01) ==
PROVIDERS: Emergency Provider Internal Medicine
DX: G43.009 Migraine without aura, not intractable, without status migrainosus (principal); E11.22 Type 2 diabetes mellitus with diabetic chronic kidney disease; N18.30 Chronic kidney disease, stage 3 unspecified; F41.9 Anxiety disorder, unspecified; Z86.711 Personal history of pulmonary embolism; Z86.718 Personal history of other venous thrombosis and embolism; Z79.899 Other long term (current) drug therapy; Z95.0 Presence of cardiac pacemaker
CPT/HCPCS: 96361; 96372; 96374; 99283; 99284; J1200; J1885

== ENCOUNTER 2021-09-23 18:06 | Emergency (ER) | payer OTHER, SELFPAY ==
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
[2021-09-23 18:12] VITALS: PULSE 80
[2021-09-23 18:13] VITALS: BMI 30.2
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
[2021-09-23 18:19] VITALS: BP 130/74; PULSE 69; RESP 19; TEMP 36.5; O2SAT 99
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
[2021-09-23 19:08] LABS: MANUAL DIFF FLAG NO
[2021-09-23 19:09] LABS: Basophils Percent Auto 0.5 % (0-2); Eosinophils Absolute Auto 0.2 X10*3/uL (0.0-0.4); Eosinophils Percent Auto 2.9 % (0-4); Hemoglobin 10.4 g/dl (12.0-16.0); Imm Gran Abs Auto 0.03 X10*3/uL (0.00-0.03); Imm Gran Pct Auto 0.5 % (0.0-0.4); Lymphocytes Absolute Auto 0.9 X10*3/uL (1.2-4.9); Lymphocytes Percent Auto 13.2 % (20-40); Mean Corpuscular HGB Conc 31.5 g/dl (31.0-35.0); Mean Corpuscular Volume 88.9 fL (80.0-98.0); Mean Platelet Volume 9.2 fL (9.4-12.3); Monocytes Absolute Auto 0.5 X10*3/uL (0.1-1.2); Monocytes Percent Auto 7.9 % (2-11); Neutrophils Absolute Auto 4.9 x10*3/uL (2.0-8.3); Platelet Count 290 X10*3/uL (160-400); Red Blood Count 3.71 X10*6/uL (4.20-5.50); Red Cell Distribution Width 14.5 % (11.0-16.0); White Blood Count 6.5 X10*3/uL (4.8-10.8)
[2021-09-23 19:17] VITALS: BP 125/53; PULSE 64; RESP 20; TEMP 36.6; O2SAT 100
[2021-09-23] MEDS: 0.9 % Sodium Chloride 1,000 ML 999 ML IVCONT ×2 (19:21→20:58)
[2021-09-23 19:22] LABS: Anion Gap 15 (12-20); Blood Urea Nitrogen 36 mg/dL (9-16); Calcium 8.5 mg/dL (8.4-10.2); Carbon Dioxide 23 mmol/L (22-29); Chloride 107 mmol/L (96-108); Creatinine Clr Calc Pharmacy 39.7; Estimated Glomerular Filt Rate 28; Glucose Random 91 mg/dL (60-115); Potassium 4.9 mmol/L (3.3-5.1); Sodium 140 mmol/L (135-145)
[2021-09-23 19:28] LABS: Troponin-I High Sensitivity 5.3 ng/L (<3.5-17.0)
[2021-09-23] MEDS: ondansetron HCL 4 MG/2 ML VIAL IVPUSH (19:28)
--- NOTE | 2021-09-23 19:31 | PC.NURSE ---
RN assumed care at 1900. Pt alert and oriented x4, calm and cooperative. Pt complains of mild headache and nausea. IV started, IV fluids running and meds given. Vitals stable. Pt resting in stretcher without issues, waiting for CT scan. Will contiue to monitor.
[2021-09-23 20:34] VITALS: BP 114/55; PULSE 67; RESP 19; TEMP 36.6; O2SAT 99
[2021-09-23] MEDS: Acetaminophen 325 MG TABLET 975 MG PO (20:58)
[2021-09-23] MEDS: Butalb/Acetamin/Caff 50/325/40 TABLET 1 TAB PO (20:58)
[2021-09-23 20:59] LABS: Appearance Urine HAZY; Color Urine YELLOW; Glucose Urine UA NEG (NEG); Leukocyte Esterase Urine TRACE (NEG); Nitrite Urine NEG (NEG); Specific Gravity - Urine 1.015 (1.005-1.025); UACC Culture Trigger YES; Urine Blood NEG (NEG); Urine Ketones NEG (NEG); Urine Protein NEG (NEG-TRACE)
[2021-09-23 21:05] LABS: RBC Urine 0 /HPF (0); Squamous Epithelial Cell Urine 2+ /LPF
[2021-09-23 21:06] LABS: Mucus Urine TRACE /LPF
[2021-09-23] MEDS: Ketorolac Tromethamine 15 MG/ML VIAL 30 MG IVPUSH (21:11)
[2021-09-23 21:50] VITALS: BP 138/70; PULSE 61; RESP 20; TEMP 36.9; O2SAT 99
--- NOTE | 2021-09-23 21:54 | PC.NURSE ---
Pt alert and oriented x4, calm and cooperative. Pt states headache persists at this time, MD aware. Pt denies N/V. Pt denies dizziness, noted to be steady on her feet with ambulating. Pt educated on dc and stated and understanding. IV removed. Vitals stable. Pt ambulated out of ER to private car without issues.
== END 2021-09-23 21:56 | disposition home or self-care (01) ==
PROVIDERS: Nurse Practitioner Family; Emergency Provider Internal Medicine
DX: S06.0X0A Concussion without loss of consciousness, initial encounter (principal); V43.62XA Car passenger injured in collision with other type car in traffic accident, initial encounter; R11.2 Nausea with vomiting, unspecified; E11.22 Type 2 diabetes mellitus with diabetic chronic kidney disease; N18.30 Chronic kidney disease, stage 3 unspecified; Y93.89 Activity, other specified; Y92.414 Local residential or business street as the place of occurrence of the external cause; Y99.9 Unspecified external cause status; Z79.899 Other long term (current) drug therapy
CPT/HCPCS: 36415; 70450; 80048; 81001; 81003; 84484; 85025; 87086; 93005; 96361; 96374; 96375; 99285; 99291; J1885; J2405

== ENCOUNTER 2022-03-13 12:49 | Outpatient (REF) | payer OTHER, SELFPAY ==
--- NOTE | 2022-03-13 12:53 | EEG_ITS ---
The waking background activity consists of 11 Hz moderate voltage posterior alpha intermixed anteriorly with low-voltage fast frequencies. During drowsiness, diffuse theta developed over both hemispheres. Symmetrical frontal central sleep spindles developed over both hemispheres and during delta sleep, there is a bifrontal delta. Arousals are unremarkable. Several episodes of sharp transients are seen and brief bursts and isolated spiky discharges are seen predominantly with phase reversal at T3 and T5 and occasional high-amplitude sharp configuration theta with phase reversal at C4 and P4. No clinical symptoms are reported. IMPRESSION: This 24-hour ambulatory EEG is considered mildly abnormal due to recurrent sharp discharges predominantly from the left temporal and occasionally from the right parietal region that may correlate with an underlying focus of cerebral irritability. Clinical correlation is suggested. MD RENETTA Marie/TESS / [id number]
== END 2022-03-13 12:50 | disposition home or self-care (01) ==
LOC: HO.NEURO 12:49
PROVIDERS: PCP Internal Medicine; Visit Provider Psychiatry & Neurology Neurology
DX: R55 Syncope and collapse (principal)
CPT/HCPCS: 95708

== ENCOUNTER 2022-04-22 11:09 | Emergency (ER) | payer OTHER, SELFPAY ==
--- NOTE | ~2022-04-22 | CT_ITS ---
EXAMINATION: CT CHEST, ABDOMEN AND PELVIS WITHOUT CONTRAST CLINICAL INFORMATION: Fall, injury and pain. COMPARISON: CT abdomen and pelvis 05/09/2020, chest CT 06/13/2020 TECHNIQUE: Multidetector volumetric imaging was performed from the thoracic inlet through the pubic symphysis. Sagittal and coronal reformatted images were obtained on the technologist's workstation. Axial MIP volume rendering provided. This CT examination was performed using dose optimization techniques as appropriate, variously including the following: *Automated exposure control *Adjustment of mA and/or kV according to patient size (this includes techniques or standardized protocols for targeted exams where dose is matched to indication/reason for exam; i.e. extremities or head) *Use of iterative reconstruction technique DLP: 1118 mGy-cm FINDINGS: CHEST: Lungs: Mixed consolidative and groundglass opacities in the posterior right upper lobe. Small sub-4 mm pleural-based nodular density in the posterior medial right lower lobe on series 30 image 209, unchanged. Small 4 mm triangular nodule in the right middle lobe along the horizontal fissure on image 199, unchanged. Couple tiny calcified granulomas in the right middle lobe. No suspicious appearing pulmonary nodules. No additional airspace consolidation. Minimal bibasilar and lingular subsegmental atelectasis. No pneumothorax. Central airways are clear. Mediastinum: No cardiomegaly. No pericardial effusion. Left-sided dual-chamber pacer with lead tips terminating in the right atrial appendage and right ventricle. Mild LAD and left circumflex coronary artery vascular calcifications. No thoracic aortic aneurysm. Nondilated central pulmonary trunk. No mediastinal or hilar lymphadenopathy. Pericardium/Pleura: There is no significant effusion. No pleural mass or thickening. Chest Wall/Axilla: Unremarkable. ABDOMEN/PELVIS: Liver, Gallbladder, Biliary Tree: Small subcentimeter hypodensity likely a cyst at the right hepatic dome, too small to accurately characterize. No other liver lesions. Normal hepatic attenuation. No biliary ductal dilation. Status post cholecystectomy with surgical clips in the gallbladder fossa. Pancreas: Unremarkable. Spleen: Unremarkable. Adrenal Glands: 2.7 cm mixed fat and soft tissue attenuation right adrenal nodule compatible with adrenal myelolipoma, not significantly changed. Normal left adrenal gland. Kidneys and Ureters: Horseshoe kidney. Multiple nonobstructing bilateral renal calculi, largest a staghorn calculation the left kidney measuring 1.8 cm in size. No appreciable renal lesion. No perinephric collections. No hydronephrosis. Bladder: Prominently distended. No bladder wall thickening. Gastrointestinal Tract: Status post prior sigmoid resection and anastomosis. Colonic diverticulosis. No evidence of acute diverticulitis. Status post gastric bypass. No dilated bowel loops or bowel wall thickening. Appendix grossly unremarkable. No ascites or free air. Abdominal Wall: Infraumbilical ventral abdominal wall hernia containing fat and nondilated small bowel loops. Lymphovascular Structures: Lymph nodes: No lymphadenopathy. Vascular: Normal caliber abdominal aorta. Pelvic Viscera: Status post hysterectomy. OSSEOUS STRUCTURES: Acute to subacute appearing superior endplate compression deformity of L4 with a lucent fracture line and approximately 40% vertebral body height loss. Chronic appearing superior plate compression deformity of L3, new since prior CT of 05/09/2020. No additional fracture. No suspicious osseous lesion. Mild disc degenerative change and findings of DISH noted in the thoracolumbar spine. CT/CT abdomen pelvis wo con IMPRESSION: 1. Acute to subacute superior endplate compression fracture of L4 with approximately 40% vertebral body height loss. 2. Chronic appearing mild superior endplate compression deformity of L3, newly developed since prior CT of 2019. 3. No other acute fracture. 4. Mixed groundglass and consolidative opacities in the posterior right upper lobe. Findings could represent pneumonia, recent aspiration, or conceivably pulmonary contusions. 5. No other acute soft tissue injury identified in the chest, abdomen, or pelvis. 6. Multiple additional chronic findings, as detailed above.
--- NOTE | ~2022-04-22 | CT_ITS ---
EXAMINATION: CT HEAD WITHOUT CONTRAST CLINICAL INFORMATION: Fall, injury COMPARISON: None TECHNIQUE: Contiguous axial imaging was performed from the skull base to vertex without intravenous administration of contrast. This CT examination was performed using dose optimization techniques as appropriate, variously including the following: *Automated exposure control *Adjustment of mA and/or kV according to patient size (this includes techniques or standardized protocols for targeted exams where dose is matched to indication/reason for exam; i.e. extremities or head) *Use of iterative reconstruction technique DLP: 2621 mGy-cm FINDINGS: There is no evidence of acute intracranial hemorrhage or edematous territorial infarction. No abnormal mass effect or midline shift is seen. Ferrell to white matter differentiation is well preserved. No extra-axial fluid collections are identified. Apparent loss of ferrell-white matter differentiation in the anterior aspect of bilateral frontal lobes, for example image 5:64-57. This of indeterminate etiology. Infarction, of indeterminate age cannot be excluded. The ferrell-white matter differentiation is otherwise preserved. The ventricles are normal in size. There is no abnormal attenuation within the brain parenchyma. No acute calvarial fracture. Paranasal sinus and mastoid air cells are well-aerated. CT/CT head/brain wo con IMPRESSION: No CT evidence of acute intracranial hemorrhage or extra-axial fluid collections. Apparent loss of ferrell-white matter differentiation in the anterior aspect of bilateral frontal lobes, of indeterminate etiology. Infarction, of indeterminate age, cannot be excluded. Consider further evaluation with CTA head or MRI. This critical result was discussed with ILA Nolasco at 1749 hours on 04/22/2022 and it was ascertained that the content and urgency of the report was understood at the time of direct communication.
--- NOTE | ~2022-04-22 | CT_ITS ---
EXAMINATION: CT CERVICAL SPINE WITHOUT CONTRAST CLINICAL INFORMATION: Fall, injury, pain. COMPARISON: None TECHNIQUE: CT cervical spine 09/15/[address] examination was performed using dose optimization techniques as appropriate, variously including the following: *Automated exposure control *Adjustment of mA and/or kV according to patient size (this includes techniques or standardized protocols for targeted exams where dose is matched to indication/reason for exam; i.e. extremities or head) *Use of iterative reconstruction technique DLP: 2621 mGy-cm FINDINGS: Craniocervical and atlantoaxial alignment is maintained. Vertebral body heights are maintained. No acute fracture is identified of the vertebral bodies or posterior elements. Disc spaces relatively maintained. There is mild disc degenerative changes at C4-C5, C5-C6, C6-C7. No suspicious thyroid findings. See CT chest report for the findings. CT/CT cervical spine wo con IMPRESSION: 1. No evidence of acute fracture or malalignment.
[2022-04-22 11:18] VITALS: BP 110/60; BP 96/59; PULSE 61; PULSE 67; RESP 18; TEMP 37.3; O2SAT 95; O2SAT 97; BMI 30.9
--- NOTE | 2022-04-22 11:19 | ED.GENADULT ---
HPI - General Adult General Chief complaint: Fall Stated complaint: fall/ lower back pain Time Seen by Provider: 04/22/22 11:19 Source: patient and EMS Mode of arrival: EMS Limitations: no limitations History of Present Illness HPI narrative: Patient is a 51 year old female presenting to the emergency department today with generalized body pain, all over, after a fall. Patient states that she has a history of low blood pressure and falls. Patient states that today, she had another fall and is in a lot of body pain. Patient denies any current dizziness, lightheadedness, abdominal pain, nausea, vomiting, fever, chills, blurry vision, double vision, loss of vision, chest pain, difficulty breathing, shortness of breath, back pain, night sweats, pain with urination, increased urinary frequency, increased urinary urgency, blood in her urine or stool, syncope or a near syncopal episode, bowel incontinence, bladder incontinence, bowel retention, bladder retention, or any other complaints at this time. An individual who would like to remain anonymous called the department and informed me that the patient did not have a fall and rather, she is faking pain in an attempt to get medication. Patient states that she was seen at [facility] yesterday and they told her that nothing was wrong. Onset (ago): day(s) (1) Severity: mild Severity scale (1-10): 1 Quality: dull Pain Consistency: constant Relieving factors: none Exacerbating factors: none Associated symptoms: denies other symptoms Treatments prior to arrival: none Related Data Home Medications Medication Instructions Recorded Confirmed alprazolam 1 mg tablet 0.5 - 1 tab PO DAILY PRN Anxiety 04/13/21 04/13/21 calcium citrate 315 mg-vitamin D3 1 tab PO BID 04/13/21 04/13/21 5 mcg (200 unit) tablet melatonin 5 mg capsule 1 cap PO BEDTIME 04/13/21 04/13/21 venlafaxine 150 mg 1 cap PO DAILY 04/13/21 04/13/21 capsule,extended release 24 hr zolpidem 10 mg tablet 0.5 - 1 tab PO BEDTIME PRN insomnia 04/13/21 04/13/21 Previous Rx's Medication Instructions Recorded acetaminophen 650 mg 650 mg PO Q8H PRN back pain #60 04/16/21 tablet,extended release tabs tizanidine 4 mg tablet 2 mg PO TID PRN back pain/muscle 04/16/21 spasm #30 tabs xilkkqqnty-ppnguflhlzefo-ncxwsmjt 1 cap PO Q6H PRN pain #20 caps 05/13/21 50 mg-300 mg-40 mg capsule (Fioricet) emimllnyjo-pwjmwtuijbuvx-ywljsvgt 1 cap PO Q8H PRN Migraine #10 caps 09/23/21 50 mg-300 mg-40 mg capsule (Fioricet) ondansetron 4 mg disintegrating 4 mg PO Q8H PRN nausea and 09/23/21 tablet vomiting #10 tabs pantoprazole 40 mg tablet,delayed 40 mg PO DAILY #30 tabs 09/24/21 release azithromycin 500 mg tablet See Rx Instructions PO .COMPLEX #3 04/22/22 tabs Allergies Allergy/AdvReac Type Severity Reaction Status Date / Time egg [EGGS] AdvReac Intermediate NAUSEA/VOMI Verified 09/26/20 17:45 TING sumatriptan [From IMITREX] AdvReac Intermediate HEART Verified 09/26/20 17:45 PALPITATIONS Ibuprofen Allergy Unknown Unknown Uncoded 09/01/20 14:56 Review of Systems Constitutional: Constitutional: Reports no additional constitutional complaints, Reports body ache(s), Denies chills, Denies fever(s) and Denies night sweats Eyes: Eyes: Reports no additional eye complaints, Denies blurry vision, Denies change in vision, Denies diplopia, Denies eye discharge, Denies loss of vision and Denies eye pain ENT: Denies dizziness Cardiovascular: Cardiovascular: Reports no additional cardiovascular complaints, Denies chest pain, Denies lightheadedness, Denies Loss of Consciousness and Denies dyspnea Respiratory: Respiratory: Reports no additional respiratory complaints and Denies dyspnea Gastrointestinal: Gastrointestinal: Reports no additional gastrointestinal complaints, Denies abdominal pain, Denies melena, Denies hematochezia, Denies change in bowel habits and Denies change in stool character Genitourinary: Genitourinary: Denies hematuria, Denies urinary frequency, Denies dysuria, Denies urinary incontinence, Denies urinary hesitancy and Denies urinary urgency Musculoskeletal: Musculoskeletal: Reports no additional musculoskeletal complaints, Denies numbness and Denies tingling Neurologic: Denies dizziness, Denies loss of vision, Denies numbness and Denies tingling Psychiatric: Psychiatric: Reports no additional psychiatric complaints Endocrine: Endocrine: Reports no additional endocrine complaints Hematologic/Lymphatic: Hematologic/Lymphatic: Reports no additional hematologic/lymphatic complaints Allergic/Immunologic: Allergic/Immunologic: Reports no additional allergic/immunologic complaints PMFSH Past Medical History Attestation statement: The following information was validated with the patient. Source: old records reviewed Medical History Anxiety Back pain CKD stage 3 secondary to diabetes Depression Diabetes Diverticulitis DVT of right axillary vein, acute Endometrial cancer Hypotension Pacemaker (~2015) Pulmonary embolus, left (~04/2020) Renal stones Seizure disorder Status post extracorporeal shock wave therapy Surgical History H/O tooth extraction History of esophagogastroduodenoscopy (~06/2020) History of Trisha-en-Y gastric bypass (~10/2019) History of sleeve gastrectomy (~2014) Hx laparoscopic cholecystectomy Hx of appendectomy Hx of hernia repair S/P CELESTINO (total abdominal hysterectomy) Family History Family History Father No problems noted. Mother Diabetes Chronic mental illness Father No problems noted. Mother No problems noted. Social History Social History Household Members: None and Unknown / Unable to assess Housing: Unknown / Unable to assess Do you presently have visiting nurse or other home services: No Unable to assess alcohol history related to: Unable to respond Alcohol intake: current Alcohol intake frequency: 0-2 drinks per day Second Hand Smoke Exposure: No Substance Use Type: Marijuana, Opiates and Prescription Drugs Advance Directives: No Advance Directives Information Provided: Yes service: No Current occupational status: disabled Physical Exam ED Vital Signs: Vital Signs - 24 hr 04/22/22 11:18 04/22/22 13:24 04/22/22 15:02 Temperature 99.2 F 98.2 F Pulse Rate 67 64 65 Respiratory Rate 18 18 18 Blood Pressure 96/59 L 99/54 L 98/52 L Pulse Oximetry 97 98 98 Oxygen Delivery Method Room Air Room Air Room Air BMI result Body Mass Index 30.9 Const General: cooperative, no acute distress, alert and awake Nutritional Appearance: well nourished Orientation/consciousness: patient oriented x3 Limitations: no limitations HENMT Head: Yes normal to inspection and Yes atraumatic Ears: hearing grossly normal bilaterally and external ears normal General nose exam: Normal external nose present, no nasal discharge noted and no epistaxis Face and sinus: Yes normal facial exam, No abrasion and No laceration Mouth: Normal oral and palatal mucosa present, no drooling and no muffled voice Eyes General: appearance normal, both eyes and all related structures Periorbital: periorbital findings normal Eyelids: Yes eyelids normal Conjunctivae: conjunctivae normal Pupils: Equal, round and reactive pupils present EOM: EOMs intact bilaterally Neck Neck: Yes normal visual inspection, Yes full ROM and Yes no lymphadenopathy Chest Chest palpation & inspection: normal inspection of the chest Resp Effort & Inspection: normal respiratory effort and able to speak in complete sentences Auscultation: clear to auscultation bilaterally Cardio Rate: regular rate Rhythm: regular rhythm GI Inspection: Yes normal to inspection Neuro General: patient oriented x3 and moves all extremities Cranial nerves: Yes Equal, round and reactive pupils present Cognition (Neuro): normal cognition Motor exam (neuro): 5/5 motor strength present throughout Sensory Exam: Normal double simultaneous stimulation for sensation Coordination: zllotx-gi-exlw test normal Extrem General: Yes normal to inspection, Yes full ROM and Yes capillary refill normal Psych Appearance: grossly normal Mental Status: mental status grossly normal Affect: normal affect Attitude: cooperative Thought process: Normal thought process present Thought content: Normal thought content present Insight: Good insight present (Psych) Medical Decision Making MDM Narrative Medical decision making narrative: Patient is a 51 year old female presenting to the emergency department today with all over body pain. Patient's physical exam was unremarkable. Patient's head, c-spine, and abdominal/pelvic CTs showed no acute process. Patient's chest CT showed infiltrates in the RUL and RLL. Patient's clinical picture is inconsistent with sepsis or any type of septic diagnosis. Patient is NOT septic or suffering from sepsis. I explained my physical exam findings as well as all test results to the patient. I answered all questions asked by the patient. Patient received PO Flexeril which she stated helped her pain significantly. Patient was adamant that the low blood pressure was her base line and she did not want any IV fluids to address this. Additionally, patient stated that she did not want to stay here and that she wanted to go home. I stressed the importance of the patient taking her medication as prescribed. I stressed the importance of the patient following up with her primary care provider. I stressed the importance of the patient returning to the emergency department immediately if her symptoms were to worsen or if she were to develop any dizziness, shortness of breath, difficulty breathing, chest pain, blurry vision, loss of vision, nausea, vomiting, abdominal pain, fever, chills, back pain, or any other complaints. Patient verbalized agreement and understanding with this treatment plan and discharge. Differential Diagnosis Differential Diagnosis: pneumonia Medical Records Medical records reviewed: Yes I reviewed the patient's medical records. Imaging Data Head CT, C-Spine CT: Attestation: I personally reviewed and interpreted this imaging study as follows: My impression: No acute process. Radiologist's impression: [facility] is down and thus, I am manually entering a written radiology report. Dr. George, the radiologist, interpreted these studies as having no acute findings. CT scan - chest: Attestation: I personally reviewed and interpreted this imaging study as follows: My impression: Right sided infiltrates. Radiologist's impression: [facility] is down and thus, I am manually entering a hand written report. Dr. George, the radiologist adult basic education manager, has read this study as infiltrates present to the RUL and RLL. Discharge Plan Discharge Clinical Impression: Pneumonia, History of hypotension, Hx of orthostatic hypotension Patient Disposition: Home, Self-Care Instructions: Pneumonia (ED) Additional Instructions: Follow up with your primary care provider. Return to the emergency department immediately if your symptoms worsen or if you develop any dizziness, shortness of breath, difficulty breathing, chest pain, blurry vision, loss of vision, nausea, vomiting, abdominal pain, fever, chills, back pain, or any other complaints. Prescriptions: New azithromycin 500 mg tablet See Rx Instructions .ROUTE .COMPLEX Qty: 3 0RF Rx Instructions: For 500 mg dose pack: take 500 mg once daily for 3 days No Action pantoprazole 40 mg tablet,delayed release (DR/EC) 40 mg PO DAILY Qty: 30 3RF alprazolam 1 mg tablet 0.5 - 1 tab PO DAILY PRN (Reason: Anxiety) venlafaxine 150 mg capsule,extended release 24hr 1 cap PO DAILY zolpidem 10 mg tablet 0.5 - 1 tab PO BEDTIME PRN (Reason: insomnia) calcium citrate-vitamin D3 315 mg-5 mcg (200 unit) tablet 1 tab PO BID melatonin 5 mg capsule 1 cap PO BEDTIME tizanidine 4 mg Tablet 2 mg PO TID PRN (Reason: back pain/muscle spasm) Qty: 30 0RF acetaminophen 650 mg tablet extended release 650 mg PO Q8H PRN (Reason: back pain) Qty: 60 0RF wkzmjehpqf-tiknwfafpibea-mlnl [Fioricet] 50-300-40 mg capsule 1 cap PO Q6H PRN (Reason: pain) Qty: 20 0RF hwimmitfqk-wdyvaknfocemc-qhwq [Fioricet] 50-300-40 mg capsule 1 cap PO Q8H PRN (Reason: Migraine) Qty: 10 0RF ondansetron 4 mg tablet,disintegrating 4 mg PO Q8H PRN (Reason: nausea and vomiting) Qty: 10 0RF Referrals: Moira Tejeda MD [Primary Care Provider] - Interventions: ED Discharge Assessment Last Done: 04/22/22 15:42 Discharge Date/Time: 04/22/22 15:42 Print Language: Hebrew
[2022-04-22] MEDS: Cyclobenzaprine HCl 5 MG TABLET PO (11:32)
[2022-04-22 13:24] VITALS: BP 99/54; PULSE 64; RESP 18; TEMP 36.8; O2SAT 98
[2022-04-22 15:02] VITALS: BP 98/52; PULSE 65; RESP 18; O2SAT 98
== END 2022-04-22 15:42 | disposition home or self-care (01) ==
PROVIDERS: Emergency Provider Emergency Medicine Emergency Medical Services; PCP Internal Medicine
DX: J18.9 Pneumonia, unspecified organism (principal); R90.89 Other abnormal findings on diagnostic imaging of central nervous system; M54.50 Low back pain, unspecified; E11.22 Type 2 diabetes mellitus with diabetic chronic kidney disease; N18.30 Chronic kidney disease, stage 3 unspecified; G40.909 Epilepsy, unspecified, not intractable, without status epilepticus; Z91.81 History of falling; Z86.711 Personal history of pulmonary embolism; Z86.79 Personal history of other diseases of the circulatory system
CPT/HCPCS: 70450; 71250; 72125; 74176; 99283; 99284

== ENCOUNTER 2022-04-22 18:42 | Inpatient (IN) | payer OTHER, SELFPAY ==
[2022-04-22] VITALS (9 sets, daily range): BP systolic 66–146; BP diastolic 33–79; PULSE 60–65; RESP 14–28; TEMP 36.6–36.7; O2SAT 98–100; BMI 31.1
--- NOTE | ~2022-04-22 | US_ITS ---
EXAMINATION: US EXTRACRANIAL CAROTID DUPLEX, BILATERAL CLINICAL INFORMATION: History of stroke and diabetes COMPARISON: None TECHNIQUE: Real-time ultrasound and Doppler techniques (integrating B-mode 2-D vascular images, Doppler spectral analysis and color-flow Doppler imaging) were utilized to interrogate the extracranial carotid arteries, the vertebral arteries and proximal subclavian arteries bilaterally. The degree of stenosis is determined by criteria similar to NASCET. FINDINGS: Right Side: 1. There is no significant atherosclerotic plaque seen in the bifurcation/proximal ICA region. 2. The common carotid artery PSV proximally is 96 cm/s and distally 80 cm/s. 3. The proximal internal carotid artery velocities are 71 cm/s systolic and 27 cm/s diastolic. 4. The proximal external carotid artery PSV is 61 cm/s. 5. The vertebral artery shows antegrade flow. 6. The subclavian artery waveforms are normal. Left Side: 1. There is no significant atherosclerotic plaque seen in the bifurcation/proximal ICA region. 2. The common carotid artery PSV proximally is 160 cm/s and distally 79 cm/s. 3. The proximal internal carotid artery velocities are 85 cm/s systolic and 28 cm/s diastolic. 4. The proximal external carotid artery PSV is 83 cm/s. 5. The vertebral artery shows antegrade flow. 6. The subclavian artery waveforms are normal. US/US carotid duplex BI IMPRESSION: 1. RIGHT: Normal right internal carotid artery without atherosclerotic plaque or hemodynamically significant stenosis. 2. LEFT: Normal left internal carotid artery without atherosclerotic plaque or hemodynamically significant stenosis.
--- NOTE | 2022-04-22 18:49 | ECG_ITS ---
Test Reason : SEPSIS Blood Pressure : / mmHG Vent. Rate : 063 BPM Atrial Rate : 063 BPM P-R Int : 200 ms QRS Dur : 118 ms QT Int : 434 ms P-R-T Axes : 026 000 014 degrees QTc Int : 444 ms Atrial-paced rhythm RSR' or QR pattern in V1 suggests right ventricular conduction delay Abnormal ECG When compared with ECG of 23-SEP-2021 18:48, Electronic atrial pacemaker has replaced Sinus rhythm Referred By: Yesica Beard Electronically Signed By:PEPITO FIGUEROA
--- NOTE | 2022-04-22 18:53 | PC.NURSE ---
charge made aware of low BP 66/66. Recheck came back at 64/33. pt keeps closing her eyes in triage.
--- NOTE | 2022-04-22 18:55 | ED.WEAKNESS ---
HPI - Weakness General Chief complaint: Weakness Stated complaint: Called to come back for catscan Time Seen by Provider: 04/22/22 18:47 Source: patient and old records reviewed Mode of arrival: ambulatory Limitations: no limitations History of Present Illness HPI Narrative: 51 yo female with hx of orthostatic hypotension, hx of falls, pneumonia, bariatric surgery, substance misuse issues, CKD, DVT, PPM, anxiety, seizure disorder seen earlier today with c/o falls - had head CT and review of initial read showed possible age indeterminate areas in frontal lobes, patient instructed to come back to the ED. On arrival to the ED patient c/o weakness and patient found to be hypotensive. I think I am getting up too fast. CT head: anterior bilateral frontal lobes loss of garcia-white matter differentiation ? infarction CT cervical spine: no traum CT chest: subacute L4 compression fracture mixed GGo and consolidations in posterior RUL ? contusion vs aspiration CT abdomen: no trauma MD Complaint: generalized weakness (abnormal CT head from earlier) Onset (ago): day(s) (1) Duration: constant Location: generalized Migration: none Severity: moderate Quality: dull Relieving factors: rest Exacerbating factors: movement Context: history of similar (did not take her midodrine today ) Associated symptoms: loss of appetite and other (malaise) Related Data Home Medications Medication Instructions Recorded Confirmed alprazolam 1 mg tablet 0.5 - 1 tab PO DAILY PRN Anxiety 04/13/21 04/13/21 calcium citrate 315 mg-vitamin D3 1 tab PO BID 04/13/21 04/13/21 5 mcg (200 unit) tablet melatonin 5 mg capsule 1 cap PO BEDTIME 04/13/21 04/13/21 venlafaxine 150 mg 1 cap PO DAILY 04/13/21 04/13/21 capsule,extended release 24 hr zolpidem 10 mg tablet 0.5 - 1 tab PO BEDTIME PRN insomnia 04/13/21 04/13/21 Previous Rx's Medication Instructions Recorded acetaminophen 650 mg 650 mg PO Q8H PRN back pain #60 04/16/21 tablet,extended release tabs tizanidine 4 mg tablet 2 mg PO TID PRN back pain/muscle 04/16/21 spasm #30 tabs figfqmesof-nsgsqlhnalxfl-inkftgxn 1 cap PO Q6H PRN pain #20 caps 05/13/21 50 mg-300 mg-40 mg capsule (Fioricet) xfvnnffrci-cqxhmsfwxrsuf-vulcierx 1 cap PO Q8H PRN Migraine #10 caps 09/23/21 50 mg-300 mg-40 mg capsule (Fioricet) ondansetron 4 mg disintegrating 4 mg PO Q8H PRN nausea and 09/23/21 tablet vomiting #10 tabs pantoprazole 40 mg tablet,delayed 40 mg PO DAILY #30 tabs 09/24/21 release azithromycin 500 mg tablet See Rx Instructions PO .COMPLEX #3 04/22/22 tabs Allergies Allergy/AdvReac Type Severity Reaction Status Date / Time egg [EGGS] AdvReac Intermediate NAUSEA/VOMI Verified 09/26/20 17:45 TING sumatriptan [From IMITREX] AdvReac Intermediate HEART Verified 09/26/20 17:45 PALPITATIONS Ibuprofen Allergy Unknown Unknown Uncoded 09/01/20 14:56 Review of Systems Review of Systems: Constitutional : No Weight loss, No Fever, No Chills, No Fatigue, pos Malaise ENT/Mouth : No sore throat, No Rhinorrhea Eyes: No Eye Pain, No Swelling, No Redness Cardiovascular : No Chest Pain, No SOB, No Dyspnea on Exertion, No Orthopnea, No Edema, No Palpitations Respiratory : No Cough, No Sputum, No Wheezing Gastrointestinal : No Nausea, No Vomiting, No Diarrhea, No Constipation, No abdominal Pain, No Hematochezia, No Melena Genitourinary : No Dysuria, No Urinary Frequency, No Hematuria, Musculoskeletal : No joint pain, No Myalgias, No Joint Swelling Skin : No Skin Lesions, No rash Neuro : pos Weakness, Numbness, pos Dizziness, No Headache Psych : No Anxiety/Panic, No Depression Heme/Lymph: No Bruising, No Bleeding,No Lymphadenopathy Endocrine : No Polyuria, No Polydipsia All other systems reviewed and are negative [facility] Past Medical History Attestation statement: The following information was validated with the patient. Medical History Anxiety Back pain CKD stage 3 secondary to diabetes Depression Diabetes Diverticulitis DVT of right axillary vein, acute Endometrial cancer Hypotension Pacemaker (~2015) Pulmonary embolus, left (~04/2020) Renal stones Seizure disorder Status post extracorporeal shock wave therapy Surgical History H/O tooth extraction History of esophagogastroduodenoscopy (~06/2020) History of Trisha-en-Y gastric bypass (~10/2019) History of sleeve gastrectomy (~2014) Hx laparoscopic cholecystectomy Hx of appendectomy Hx of hernia repair S/P CELESTINO (total abdominal hysterectomy) Family History Family History Father No problems noted. Mother Diabetes Chronic mental illness Father No problems noted. Mother No problems noted. Social History Social History Household Members: None and Unknown / Unable to assess Housing: Unknown / Unable to assess Do you presently have visiting nurse or other home services: No Unable to assess alcohol history related to: Unable to respond Alcohol intake: current Alcohol intake frequency: 0-2 drinks per day Second Hand Smoke Exposure: No Substance Use Type: Marijuana, Opiates and Prescription Drugs Advance Directives: No Advance Directives Information Provided: No service: No Current occupational status: disabled Physical Exam Vital Signs: Vital Signs: Last Vital Signs Temp 97.8 F 04/22/22 21:09 Pulse 61 04/22/22 21:09 Resp 20 04/22/22 21:09 BP 146/63 H 04/22/22 21:09 Pulse Ox 99 04/22/22 21:09 O2 Del Method 04/22/22 21:09 BMI result Body Mass Index 31.1 Appearance: Somnolent/Sedated. Oriented X3. No acute distress. Eyes: Pupils equal, round and reactive to light. ENT: Pharynx mildly dry MM Neck: Normal inspection. Neck supple. CVS: Normal heart rate and rhythm. Pulses normal. Respiratory: No respiratory distress. Breath sounds normal. Abdomen: Soft and nontender. Rectal: brown stool Skin: Skin warm and dry. Pale skin color. Normal skin turgor. Extremities: No lower extremity edema. No calf ttp Neuro: Oriented X 3. No motor deficit. No sensory deficit. Course Course Course Narrative: BP improved with fluid and medications will obtain type and screen, transfuse 2 UPRBCs, guiac stool MDM - Weakness MDM Narrative Medical decision making narrative: 51 yo female with hx of orthostatic hypotension, hx of falls, pneumonia, bariatric surgery, substance misuse issues, CKD, DVT, PPM, anxiety, seizure disorder here with c/o weakness, falls, abnormal head CT from earlier today but she has no complaints. Did have RUL pneumonia on CXR. Low BP has hx of same in the past ?orthostatic hypotension and did not take her midodrine. Labs, cultures, lactic acid, PO midodrine, 30cc/kg bolus ordered. If Cr normal will obtain CTA of head though she has no neuro findings and denies headache - dispo per results and findings. Lab Data Result diagrams: 04/22/22 21:15 04/22/22 19:39 Labs: Lab Results 04/22/22 04/22/22 04/22/22 Range/Units 19:39 19:39 19:39 WBC (4.8-10.8) X10*3/uL RBC (4.20-5.50) X10*6/uL Hgb (12.0-16.0) g/dl Hct (37.0-47.0) % MCV (80.0-98.0) fL MCH (27.0-33.0) pg MCHC (31.0-35.0) g/dl RDW (11.0-16.0) % Plt Count (160-400) X10*3/uL MPV (9.4-12.3) fL Immature Gran % (Auto) (0.0-0.4) % Neut % (Auto) (45-73) % Lymph % (Auto) (20-40) % [place] % (Auto) (2-11) % Eos % (Auto) (0-4) % Baso % (Auto) (0-2) % Lymph # (Auto) (1.2-4.9) X10*3/uL [place] # (Auto) (0.1-1.2) X10*3/uL Eos # (Auto) (0.0-0.4) X10*3/uL Baso # (Auto) (0.0-0.2) X10*3/uL Abs Immat Gran (auto) (0.00-0.03) X10*3/uL Absolute Neuts (auto) (2.0-8.3) x10*3/uL Absolute Nucleated RBC (0.0-0.012) X10*3/uL Nucleated RBC % (auto) (0.0-0.2) /100WBC PT 12.5 (9.9-13.0) SEC INR 1.1 (0.9-1.1) Sodium 132 L (135-145) mmol/L Potassium 5.2 H (3.3-5.1) mmol/L Chloride 107 (96-108) mmol/L Carbon Dioxide 15 L (22-29) mmol/L Anion Gap 15 (12-20) BUN 27 H (9-16) mg/dL Creatinine 2.22 H (0.5-1.4) mg/dL Estim Creat Clear Calc 33.0 Estimated GFR 23 Random Glucose 309 H (60-115) mg/dL Lactic Acid (0.5-2.0) mmol/L Calcium 7.8 L D (8.4-10.2) mg/dL Magnesium 2.0 (1.6-2.6) mg/dL Total Bilirubin 0.4 (0.0-1.0) mg/dL Direct Bilirubin 0.2 (0.0-0.5) mg/dL AST 28 (5-31) U/L ALT 21 (0-31) U/L Alkaline Phosphatase 156 H D (39-117) U/L Troponin I High Sens (<3.5-17.0) ng/L Total Protein 5.8 L (6.5-8.0) g/dL Albumin 3.2 L (3.5-5.0) g/dL Lipase 13 (8-78) U/L Procalcitonin 0.24 ng/mL Stool Occult Blood (NEGATIVE) 04/22/22 04/22/22 04/22/22 Range/Units 19:41 19:41 21:15 WBC 6.1 (4.8-10.8) X10*3/uL RBC 2.74 L D (4.20-5.50) X10*6/uL Hgb 6.8 L* D (12.0-16.0) g/dl Hct 21.9 L D (37.0-47.0) % MCV 79.9 L (80.0-98.0) fL MCH 24.8 L (27.0-33.0) pg MCHC 31.1 (31.0-35.0) g/dl RDW 15.2 (11.0-16.0) % Plt Count 184 D (160-400) X10*3/uL MPV 9.4 (9.4-12.3) fL Immature Gran % (Auto) 0.7 H (0.0-0.4) % Neut % (Auto) 80.0 H (45-73) % Lymph % (Auto) 11.7 L (20-40) % [place] % (Auto) 6.1 (2-11) % Eos % (Auto) 1.3 (0-4) % Baso % (Auto) 0.2 (0-2) % Lymph # (Auto) 0.7 L (1.2-4.9) X10*3/uL [place] # (Auto) 0.4 (0.1-1.2) X10*3/uL Eos # (Auto) 0.1 (0.0-0.4) X10*3/uL Baso # (Auto) 0.0 (0.0-0.2) X10*3/uL Abs Immat Gran (auto) 0.04 H (0.00-0.03) X10*3/uL Absolute Neuts (auto) 4.9 (2.0-8.3) x10*3/uL Absolute Nucleated RBC 0.000 (0.0-0.012) X10*3/uL Nucleated RBC % (auto) 0.0 (0.0-0.2) /100WBC PT (9.9-13.0) SEC INR (0.9-1.1) Sodium (135-145) mmol/L Potassium (3.3-5.1) mmol/L Chloride (96-108) mmol/L Carbon Dioxide (22-29) mmol/L Anion Gap (12-20) BUN (9-16) mg/dL Creatinine (0.5-1.4) mg/dL Estim Creat Clear Calc Estimated GFR Random Glucose (60-115) mg/dL Lactic Acid 1.8 (0.5-2.0) mmol/L Calcium (8.4-10.2) mg/dL Magnesium (1.6-2.6) mg/dL Total Bilirubin (0.0-1.0) mg/dL Direct Bilirubin (0.0-0.5) mg/dL AST (5-31) U/L ALT (0-31) U/L Alkaline Phosphatase (39-117) U/L Troponin I High Sens 3.9 (<3.5-17.0) ng/L Total Protein (6.5-8.0) g/dL Albumin (3.5-5.0) g/dL Lipase (8-78) U/L Procalcitonin ng/mL Stool Occult Blood (NEGATIVE) 04/22/22 Range/Units 21:39 WBC (4.8-10.8) X10*3/uL RBC (4.20-5.50) X10*6/uL Hgb (12.0-16.0) g/dl Hct (37.0-47.0) % MCV (80.0-98.0) fL MCH (27.0-33.0) pg MCHC (31.0-35.0) g/dl RDW (11.0-16.0) % Plt Count (160-400) X10*3/uL MPV (9.4-12.3) fL Immature Gran % (Auto) (0.0-0.4) % Neut % (Auto) (45-73) % Lymph % (Auto) (20-40) % [place] % (Auto) (2-11) % Eos % (Auto) (0-4) % Baso % (Auto) (0-2) % Lymph # (Auto) (1.2-4.9) X10*3/uL [place] # (Auto) (0.1-1.2) X10*3/uL Eos # (Auto) (0.0-0.4) X10*3/uL Baso # (Auto) (0.0-0.2) X10*3/uL Abs Immat Gran (auto) (0.00-0.03) X10*3/uL Absolute Neuts (auto) (2.0-8.3) x10*3/uL Absolute Nucleated RBC (0.0-0.012) X10*3/uL Nucleated RBC % (auto) (0.0-0.2) /100WBC PT (9.9-13.0) SEC INR (0.9-1.1) Sodium (135-145) mmol/L Potassium (3.3-5.1) mmol/L Chloride (96-108) mmol/L Carbon Dioxide (22-29) mmol/L Anion Gap (12-20) BUN (9-16) mg/dL Creatinine (0.5-1.4) mg/dL Estim Creat Clear Calc Estimated GFR Random Glucose (60-115) mg/dL Lactic Acid (0.5-2.0) mmol/L Calcium (8.4-10.2) mg/dL Magnesium (1.6-2.6) mg/dL Total Bilirubin (0.0-1.0) mg/dL Direct Bilirubin (0.0-0.5) mg/dL AST (5-31) U/L ALT (0-31) U/L Alkaline Phosphatase (39-117) U/L Troponin I High Sens (<3.5-17.0) ng/L Total Protein (6.5-8.0) g/dL Albumin (3.5-5.0) g/dL Lipase (8-78) U/L Procalcitonin ng/mL Stool Occult Blood NEGATIVE (NEGATIVE) ECG Data Attestation: I personally reviewed and interpreted this ECG as follows: ECG interpretation date: 04/22/22 ECG interpretation time: 19:41 Interpretation: Rate: 63 Rhythm: atrial paced Wilsey: normal Normal P waves. Normal TERRA. Normal QRS complex. ST T wave : normal no acute ischemia qTC: normal prior studies: no acute ischemia The study has been interpreted contemporaneously by me. . Critical Care Time Critical Care Time Critical Care Time: Yes Total Critical Care Time: 60 Attestation: review of records, 2L of IVF, blood transfusions I attest to this time spent taking care of the patient Discharge Plan Discharge Clinical Impression: Acute dehydration, Acute hypotension Pneumonia Qualifiers: Pneumonia type: due to unspecified organism Laterality: right Lung location: upper lobe of lung Qualified Code(s): J18.9 - Pneumonia, unspecified organism Anemia Qualifiers: Anemia type: unspecified type Qualified Code(s): D64.9 - Anemia, unspecified Patient Disposition: Admitted As Inpatient
[2022-04-22] MEDS: Piperacillin Sodium/Tazobactam 3.375 GM in 0.9 % Sodium Chloride 50 ML IV (19:29)
--- NOTE | 2022-04-22 19:32 | PC.NURSE ---
Patient difficult stick. Antibiotics started after first set of cultures.
[2022-04-22] MEDS: Midodrine HCl 10 MG TABLET PO (19:49)
[2022-04-22 20:01] LABS: INTERNATIONAL NORM RATIO 1.1 (0.9-1.1); Prothrombin Time 12.5 SEC (9.9-13.0)
[2022-04-22 20:09] LABS: Lactic Acid 1.8 mmol/L (0.5-2.0)
[2022-04-22 20:19] LABS: Troponin-I High Sensitivity 3.9 ng/L (<3.5-17.0)
[2022-04-22 20:20] LABS: Alanine Aminotransferase 21 U/L (0-31); Albumin Level 3.2 g/dL (3.5-5.0); Alkaline Phosphatase 156 U/L (39-117); Anion Gap 15 (12-20); Aspartate Amino Transferase 28 U/L (5-31); Bilirubin Direct 0.2 mg/dL (0.0-0.5); Bilirubin Total 0.4 mg/dL (0.0-1.0); Blood Urea Nitrogen 27 mg/dL (9-16); Calcium 7.8 mg/dL (8.4-10.2); Carbon Dioxide 15 mmol/L (22-29); Chloride 107 mmol/L (96-108); Estimated Glomerular Filt Rate 23; Glucose Random 309 mg/dL (60-115); Lipase 13 U/L (8-78); Potassium 5.2 mmol/L (3.3-5.1); Sodium 132 mmol/L (135-145); Total Protein 5.8 g/dL (6.5-8.0)
[2022-04-22 20:54] LABS: Procalcitonin 0.24 ng/mL
[2022-04-22 21:19] LABS: MANUAL DIFF FLAG NO
[2022-04-22 21:20] LABS: Basophils Percent Auto 0.2 % (0-2); Eosinophils Absolute Auto 0.1 X10*3/uL (0.0-0.4); Eosinophils Percent Auto 1.3 % (0-4); Hematocrit 21.9 % (37.0-47.0); Imm Gran Abs Auto 0.04 X10*3/uL (0.00-0.03); Imm Gran Pct Auto 0.7 % (0.0-0.4); Lymphocytes Absolute Auto 0.7 X10*3/uL (1.2-4.9); Lymphocytes Percent Auto 11.7 % (20-40); Mean Corpuscular HGB Conc 31.1 g/dl (31.0-35.0); Mean Corpuscular Hemoglobin 24.8 pg (27.0-33.0); Mean Corpuscular Volume 79.9 fL (80.0-98.0); Mean Platelet Volume 9.4 fL (9.4-12.3); Monocytes Absolute Auto 0.4 X10*3/uL (0.1-1.2); Monocytes Percent Auto 6.1 % (2-11); Neutrophils Absolute Auto 4.9 x10*3/uL (2.0-8.3); Platelet Count 184 X10*3/uL (160-400); Red Blood Count 2.74 X10*6/uL (4.20-5.50); Red Cell Distribution Width 15.2 % (11.0-16.0); White Blood Count 6.1 X10*3/uL (4.8-10.8)
[2022-04-22 21:30] LABS: Hemoglobin 6.8 g/dl (12.0-16.0)
[2022-04-22 21:46] LABS: OBS Int Ctl Valid YES; OBS1 NEGATIVE (NEGATIVE)
[2022-04-22 23:01] LABS: COVID-19 Test Negative (Negative); IDNOW Serial# 16C4AD1C
--- NOTE | 2022-04-22 23:06 | P.HPHOSP_ITS ---
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 Patient initially presented to the hospital after a fall had CT head done which showed anterior bilateral frontal lobe loss of garcia-white matter differentiation question subacute infarction; CT C-spine showed no acute trauma; CT chest showed subacute L4 compression fracture; mixed ground-glass opacities and consolidations since in the right upper lobe concerning for contusion versus aspiration; CT abdomen showed no acute findings; patient initially left AMA; assist CT results are back patient was called in to come to the hospital for further evaluation. Upon arrival to the hospital patient had blood pressure in 70s systolic; unclear the patient took her midodrine. Blood pressure sick neck BMD improved after she got IV fluids and Admitted in the ER. Patient mentioned that she had falls couple times in the past 2 days. Denies any hip pain. Denies any chest pain palpitations lightheadedness dizziness. Denies any cough or sputum production. Patient denies any signs of bleeding. patient reports that she had 2 falls at home; when she had a 2nd fall she had in the wall and broke the wall. Mentioned that it is unusual for her to follow up that. Patient reports that she has remote history of compression fracture. Complains of the neck pain, back pain. Patient denies any numbness tingling or focal weakness. Review of all other systems is negative except mentioned above ER course: Per ER team patient's exam was nonfocal; mildly coarse breath sounds. Patient was given empiric antibiotics. on labs noted to have hemoglobin of 6.8. Patient received 2 units of blood transfusion. Stool guaiac test was negative. Admitted to the hospital for further management [facility] Medical History Anastomotic ulcer S/P gastric bypass Anemia Anxiety Back pain Brain lesion Depression Diabetes Diverticulitis DVT of right axillary vein, acute Endometrial cancer Hypotension Pacemaker (~2015) Pulmonary embolus, left (~04/2020) Renal stones Seizure disorder Status post extracorporeal shock wave therapy Family History Father No problems noted. Mother Diabetes Chronic mental illness Father No problems noted. Mother No problems noted. Surgical History H/O tooth extraction History of esophagogastroduodenoscopy (~06/2020) History of Trisha-en-Y gastric bypass (~10/2019) History of sleeve gastrectomy (~2014) Hx laparoscopic cholecystectomy Hx of appendectomy Hx of hernia repair S/P CELESTINO (total abdominal hysterectomy) Social History Household Members: None and Unknown / Unable to assess Housing: Unknown / Unable to assess Do you presently have visiting nurse or other home services: No Unable to assess alcohol history related to: Unable to respond Alcohol intake: current Alcohol intake frequency: 0-2 drinks per day Second Hand Smoke Exposure: No Substance Use Type: Marijuana, Opiates and Prescription Drugs Advance Directives: No Advance Directives Information Provided: Yes service: No Current occupational status: disabled Meds Allergies Allergy/AdvReac Type Severity Reaction Status Date / Time egg [EGGS] AdvReac Intermediate NAUSEA/VOMI Verified 09/26/20 17:45 TING sumatriptan [From IMITREX] AdvReac Intermediate HEART Verified 09/26/20 17:45 PALPITATIONS Ibuprofen Allergy Unknown Unknown Uncoded 09/01/20 14:56 Active Medications: Current Medications Acetaminophen (Acetaminophen 325 Mg Tablet) 650 mg PO Q6H PRN PRN Reason: Pain, Mild (Pain Scale 1-3) Azithromycin (Azithromycin 500 Mg Tablet) 500 mg PO Q24H [facility] Ceftriaxone Sodium (Ceftriaxone Sodium 500 Mg Vial) 500 mg IM Q24H [facility] Dextrose/Sodium Chloride (D5ns) 1,000 mls @ 75 mls/hr IVCONT .[id number] [facility] Melatonin (Melatonin 3 Mg Tablet) 6 mg PO BEDTIME PRN PRN Reason: Insomnia Pantoprazole Sodium (Pantoprazole Sodium 40 Mg/10 Ml Vial) 40 mg IVPUSH DAILY@0630 [facility] Pharmacy Consult (Consult Rx Perform Med Rec) 1 each MISCELLANE ONCE PRN PRN Reason: Consult order Senna (Sennosides 8.6 Mg Tablet) 17.2 mg PO BEDTIME PRN PRN Reason: Constipation Sodium Chloride (0.9 % Sodium Chloride Flush 3 Ml Syringe) 3 ml IVFLUSH QSHIFT [facility] Home Medications Medication Instructions Recorded Confirmed Last Taken Type alprazolam 1 mg tablet 0.5 - 1 tab PO DAILY PRN Anxiety 04/13/21 04/23/22 Unknown History melatonin 5 mg capsule 1 cap PO BEDTIME 04/13/21 04/23/22 Unknown History venlafaxine 150 mg 1 cap PO DAILY 04/13/21 04/23/22 Unknown History capsule,extended release 24 hr zolpidem 10 mg tablet 0.5 - 1 tab PO BEDTIME PRN insomnia 04/13/21 04/23/22 Unknown History amitriptyline 25 mg tablet 1 - 2 tab PO BEDTIME PRN Insomnia 04/23/22 04/23/22 Unknown History atorvastatin 20 mg tablet 1 tab PO DAILY 04/23/22 04/23/22 Unknown History levetiracetam 1,000 mg tablet 1 tab PO BID 04/23/22 04/23/22 Unknown History potassium citrate 10 mEq (1,080 1 tab PO TID 04/23/22 04/23/22 Unknown History mg) tablet,extended release sucralfate 100 mg/mL oral 10 ml PO QID 04/23/22 04/23/22 Unknown History suspension tizanidine 4 mg tablet 4 mg PO BID 04/23/22 04/23/22 Unknown History Physical Exam Vital Signs and Narrative: Vital Signs: Last Vital Signs Temp 98 F 04/22/22 23:00 Pulse 60 04/22/22 23:00 Resp 24 H 04/22/22 23:00 BP 112/69 04/22/22 23:00 Pulse Ox 100 04/22/22 22:09 O2 Del Method 04/22/22 22:09 BMI result Body Mass Index 31.1 Gen: Appears be in no acute distress HEENT: NCAT, Moist mucosa. Pulmonary: Vesicular breath sounds, fair air entry CVS: Normal S1-S2 Abdomen: BS+, Soft, Nontender Extremities: Warm well perfused Neuro: Alert and awake. grossly nonfocal Results Labs CBC and Chem 7: 04/24/22 06:39 04/24/22 06:39 Labs: Laboratory Results - last 24 hr 0604/22/22 04/22/22 19:39 19:39 19:39 MCV MCH MCHC RDW Plt Count MPV Immature Gran % (Auto) Neut % (Auto) Lymph % (Auto) [place] % (Auto) Eos % (Auto) Baso % (Auto) Lymph # (Auto) [place] # (Auto) Eos # (Auto) Baso # (Auto) Abs Immat Gran (auto) Absolute Neuts (auto) Absolute Nucleated RBC Nucleated RBC % (auto) PT 12.5 INR 1.1 Anion Gap 15 Estim Creat Clear Calc 33.0 Estimated GFR 23 Random Glucose 309 H Lactic Acid Calcium 7.8 L D Magnesium 2.0 Total Bilirubin 0.4 Direct Bilirubin 0.2 AST 28 ALT 21 Alkaline Phosphatase 156 H D Troponin I High Sens Total Protein 5.8 L Albumin 3.2 L Lipase 13 Procalcitonin 0.24 Stool Occult Blood COVID-19 ([place]) COVID-19 [facility] Blood Type Antibody Screen Crossmatch 04/22/22 04/22/22 04/22/22 19:41 19:41 21:15 MCV 79.9 L MCH 24.8 L MCHC 31.1 RDW 15.2 Plt Count 184 D MPV 9.4 Immature Gran % (Auto) 0.7 H Neut % (Auto) 80.0 H Lymph % (Auto) 11.7 L [place] % (Auto) 6.1 Eos % (Auto) 1.3 Baso % (Auto) 0.2 Lymph # (Auto) 0.7 L [place] # (Auto) 0.4 Eos # (Auto) 0.1 Baso # (Auto) 0.0 Abs Immat Gran (auto) 0.04 H Absolute Neuts (auto) 4.9 Absolute Nucleated RBC 0.000 Nucleated RBC % (auto) 0.0 PT INR Anion Gap Estim Creat Clear Calc Estimated GFR Random Glucose Lactic Acid 1.8 Calcium Magnesium Total Bilirubin Direct Bilirubin AST ALT Alkaline Phosphatase Troponin I High Sens 3.9 Total Protein Albumin Lipase Procalcitonin Stool Occult Blood COVID-19 ([place]) COVID-19 [facility] Blood Type Antibody Screen Crossmatch 04/22/22 04/22/22 04/22/22 21:39 21:57 22:06 MCV MCH MCHC RDW Plt Count MPV Immature Gran % (Auto) Neut % (Auto) Lymph % (Auto) [place] % (Auto) Eos % (Auto) Baso % (Auto) Lymph # (Auto) [place] # (Auto) Eos # (Auto) Baso # (Auto) Abs Immat Gran (auto) Absolute Neuts (auto) Absolute Nucleated RBC Nucleated RBC % (auto) PT INR Anion Gap Estim Creat Clear Calc Estimated GFR Random Glucose Lactic Acid Calcium Magnesium Total Bilirubin Direct Bilirubin AST ALT Alkaline Phosphatase Troponin I High Sens Total Protein Albumin Lipase Procalcitonin Stool Occult Blood NEGATIVE COVID-19 ([place]) Negative COVID-19 [facility] See Note Blood Type O Positive Antibody Screen NEGATIVE Crossmatch See Detail Assessment and Plan (1) Fall: Status: Acute Plan 51-year-old female with a past medical history of orthostatic hypotension on midodrine, 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 patient had recurrent falls likely in the setting of orthostatic hypotension. Noted to have following conditions Recurrent falls: L4 compression fracture: ?Frontal lobe subacute infarction: fall precautions PT/ OT Speech and swallow eval Echo with bubble study Pain control Neurology consult Will obtain TSH, hemoglobin A1c, lipid profile Anemia: Unclear etiology. Patient denies any signs of bleeding. Stool guaiac test was negative. CT scan showed no evidence of retroperitoneal hemorrhage. Status post 2 units of blood transfusion in the ER. Will also obtain iron studies, folate, B12. Hypotension: Patient has known history of orthostatic hypotension. Patient on midodrine. Blood pressure currently improved. Continue gentle IV fluids IGOR on CKD: Patient baseline creatinine was 1.0 in March of 2021. In August patient had creatinine 1.8. on presentation creatinine is 2.2. Likely prerenal. Gentle IV fluids. History of seizures: Continue home Keppra History of anxiety /depression: Continue home amitriptyline, alprazolam, venlafaxine DVT prophylaxis: SCD boots Code status: Full code Quality Stroke Does the patient have a stroke diagnosis?: No VTE Prior VTE?: No VTE Risk Level:: Medical - moderate - high VTE Device Contraindication: N/A - Device Ordered VTE Drug Contraindication: Treatment Not Indicated
[2022-04-22] MEDS: Dextrose 5 % and 0.9 % NaCl 1,000 ML 75 ML IVCONT (23:55)
[2022-04-23] VITALS (15 sets, daily range): BP systolic 116–174; BP diastolic 71–108; PULSE 59–79; RESP 12–24; TEMP 36.4–36.7; O2SAT 96–100
[2022-04-23 00:03] LABS: Iron 37 mcg/dL (30-160); Percent Iron Saturation 11 % (15-50); Total Iron Binding Capacity 346 mcg/dL (228-428); Unsaturated Iron Binding 309 ug/dL
[2022-04-23 00:15] LABS: Ferritin 27 ng/mL (10-250)
[2022-04-23] MEDS: cefTRIAXone sodium 1 GM in 0.9 % Sodium Chloride 50 ML IV ×2 (01:25→21:50)
[2022-04-23] MEDS: Acetaminophen 325 MG TABLET 650 MG PO (02:35)
[2022-04-23] MEDS: Midodrine HCl 10 MG TABLET PO ×5 (02:36→21:50)
[2022-04-23] MEDS: Pantoprazole Sodium 40 MG/10 ML VIAL IVPUSH (06:22)
--- NOTE | 2022-04-23 08:08 | PHA.MEDREC ---
Pharmacy Consult ? Medication Reconciliation Pharmacy has reviewed the medication reconciliation completed by Yoav. There are no remarkable issues for provider's atttention. Brianna Phillips, PharmD
[2022-04-23 08:32] LABS: Blood Urea Nitrogen 24 mg/dL (9-16); Calcium 7.9 mg/dL (8.4-10.2); Cholesterol 142 mg/dL; Creatinine Clr Calc Pharmacy 41.7; Estimated Glomerular Filt Rate 30; Glucose Random 75 mg/dL (60-115); HDL Cholesterol 43 mg/dL; LDL Cholesterol Calculated 72 mg/dl; Triglycerides 136 mg/dL
[2022-04-23 08:44] LABS: Anion Gap 16 (12-20); Carbon Dioxide 12 mmol/L (22-29); Chloride 116 mmol/L (96-108); Sodium 139 mmol/L (135-145)
[2022-04-23] MEDS: Venlafaxine HCl ER 150 MG CAP.ER.24H PO (09:12)
[2022-04-23] MEDS: levETIRAcetam 1,000 MG TABLET 1000 MG PO ×2 (09:12→22:24)
[2022-04-23] MEDS: Atorvastatin Calcium 20 MG TABLET PO (09:12)
[2022-04-23] MEDS: Sucralfate Oral Suspension 1 GM/10 ML ORAL.SUSP PO ×4 (09:12→21:50)
[2022-04-23] MEDS: Omeprazole 20 MG CAPSULE.DR PO (09:12)
[2022-04-23] MEDS: TiZANidine HCL 4 MG TABLET PO ×2 (09:13→21:50)
[2022-04-23 09:23] LABS: Basophils Percent Auto 0.6 % (0-2); Eosinophils Absolute Auto 0.2 X10*3/uL (0.0-0.4); Eosinophils Percent Auto 2.8 % (0-4); Imm Gran Abs Auto 0.04 X10*3/uL (0.00-0.03); Imm Gran Pct Auto 0.8 % (0.0-0.4); Lymphocytes Absolute Auto 1.1 X10*3/uL (1.2-4.9); Lymphocytes Percent Auto 19.9 % (20-40); Mean Corpuscular HGB Conc 31.6 g/dl (31.0-35.0); Mean Corpuscular Hemoglobin 25.2 pg (27.0-33.0); Mean Corpuscular Volume 79.6 fL (80.0-98.0); Mean Platelet Volume 9.3 fL (9.4-12.3); Monocytes Absolute Auto 0.4 X10*3/uL (0.1-1.2); Monocytes Percent Auto 6.8 % (2-11); Neutrophils Absolute Auto 3.7 x10*3/uL (2.0-8.3); Neutrophils Percent Auto 69.1 % (45-73); Platelet Count 274 X10*3/uL (160-400); Red Blood Count 4.96 X10*6/uL (4.20-5.50); Red Cell Distribution Width 15.7 % (11.0-16.0); White Blood Count 5.3 X10*3/uL (4.8-10.8)
[2022-04-23 09:27] LABS: Hemoglobin 12.5 g/dl (12.0-16.0)
[2022-04-23 09:29] LABS: Hematocrit 39.5 % (37.0-47.0)
[2022-04-23 09:55] LABS: Folate 7.6 ng/mL (> or = 4.0); Vitamin B12 311 pg/mL (200-900)
[2022-04-23] MEDS: Sodium Bicarbonate 8.4% 150 MEQ in Dextrose 5 % 850 ML 50 MEQ IV (09:56)
[2022-04-23 09:57] LABS: Troponin-I High Sensitivity < 3.5 ng/L (<3.5-17.0)
[2022-04-23 10:58] LABS: Estimated Average Glucose 123 mg/dL; Hemoglobin A1c % 5.9 %
--- NOTE | 2022-04-23 11:01 | PM.NEUROCN ---
History of Present Illness Data of Consult Service Date: 04/23/22 Primary Care Provider: Moira Tejeda MD [facility] Reason for consult: syncope or seizure 51 years old woman with complicated medical and neuropsychiatric history including history of obesity status post bariatric surgery with significant weight loss, multiple episodes of falling and passing out with suspicion of orthostatic syncope but also epilepsy. She has been treated for both dysautonomia resulting in low blood pressure and epilepsy. Despite that she had episodes of falling now and then and this time she was brought to emergency room after a fall. She said that she came out of bed and fell down hitting her head on the wall. She did not pass out. There was no obvious convulsion. There was no incontinence. Review of Systems Review of Systems: No recent cold or flu-like illness PMFSH Past Medical History Medical History Anxiety Back pain CKD stage 3 secondary to diabetes Depression Diabetes Diverticulitis DVT of right axillary vein, acute Endometrial cancer Hypotension Pacemaker (~2015) Pulmonary embolus, left (~04/2020) Renal stones Seizure disorder Status post extracorporeal shock wave therapy Family History Family History Father No problems noted. Mother Diabetes Chronic mental illness Father No problems noted. Mother No problems noted. Surgical History Surgical History H/O tooth extraction History of esophagogastroduodenoscopy (~06/2020) History of Trisha-en-Y gastric bypass (~10/2019) History of sleeve gastrectomy (~2014) Hx laparoscopic cholecystectomy Hx of appendectomy Hx of hernia repair S/P CELESTINO (total abdominal hysterectomy) Social History Social History Household Members: None and Unknown / Unable to assess Housing: Unknown / Unable to assess Do you presently have visiting nurse or other home services: No Unable to assess alcohol history related to: Unable to respond Alcohol intake: current Alcohol intake frequency: 0-2 drinks per day Second Hand Smoke Exposure: No Substance Use Type: Marijuana, Opiates and Prescription Drugs Advance Directives: No Advance Directives Information Provided: No service: No Current occupational status: disabled Meds Allergies Allergy/AdvReac Type Severity Reaction Status Date / Time egg [EGGS] AdvReac Intermediate NAUSEA/VOMI Verified 09/26/20 17:45 TING sumatriptan [From IMITREX] AdvReac Intermediate HEART Verified 09/26/20 17:45 PALPITATIONS Ibuprofen Allergy Unknown Unknown Uncoded 09/01/20 14:56 Active Medications: Current Medications Acetaminophen (Acetaminophen 325 Mg Tablet) 650 mg PO Q6H PRN PRN Reason: Pain, Mild (Pain Scale 1-3) Last Admin: 04/23/22 02:35 Dose: 650 mg Alprazolam (Alprazolam 0.5 Mg Tablet) 0.5 mg PO DAILY PRN PRN Reason: Anxiety Amitriptyline HCl (Amitriptyline Hcl 25 Mg Tablet) 25 mg PO BEDTIME PRN PRN Reason: Insomnia Atorvastatin Calcium (Atorvastatin Calcium 20 Mg Tablet) 20 mg PO DAILY [facility] Last Admin: 04/23/22 09:12 Dose: 20 mg Azithromycin (Azithromycin 500 Mg Tablet) 500 mg PO Q24H [facility] Hydromorphone HCl (Hydromorphone Hcl 0.5 Mg/0.5 Ml Syringe) 0.5 mg IVPUSH Q4H PRN; Protocol PRN Reason: Breakthrough Pain Ceftriaxone Sodium 1 gm/ (Sodium Chloride) 50 mls @ 100 mls/hr IV DAILY@2200 [facility] Last Infusion: 04/23/22 01:55 Dose: Infused Sodium Bicarbonate 150 meq/ (Dextrose) 1,000 mls @ 50 mls/hr IV .Q20H [facility] Last Admin: 04/23/22 09:56 Dose: 50 mls/hr Levetiracetam (Levetiracetam 1,000 Mg Tablet) 1,000 mg PO BID [facility] Last Admin: 04/23/22 09:12 Dose: 1,000 mg Melatonin (Melatonin 3 Mg Tablet) 6 mg PO BEDTIME PRN PRN Reason: Insomnia Midodrine (Midodrine Hcl 10 Mg Tablet) 10 mg PO TID [facility] Last Admin: 04/23/22 09:47 Dose: 10 mg Midodrine (Midodrine Hcl 10 Mg Tablet) 10 mg PO TID PRN PRN Reason: Hypotension Last Admin: 04/23/22 09:12 Dose: 10 mg Omeprazole (Omeprazole 20 Mg Capsule.Dr) 20 mg PO DAILY@0630 [facility] Last Admin: 04/23/22 09:12 Dose: 20 mg Pantoprazole Sodium (Pantoprazole Sodium 40 Mg/10 Ml Vial) 40 mg IVPUSH DAILY@0630 [facility] Last Admin: 04/23/22 06:22 Dose: 40 mg Pharmacy Consult (Consult Rx Perform Med Rec) 1 each MISCELLANE ONCE PRN PRN Reason: Consult order Senna (Sennosides 8.6 Mg Tablet) 17.2 mg PO BEDTIME PRN PRN Reason: Constipation Sodium Chloride (0.9 % Sodium Chloride Flush 3 Ml Syringe) 3 ml IVFLUSH QSHIFT [facility] Last Admin: 04/23/22 08:29 Dose: Not Given Sucralfate (Sucralfate Oral Suspension 1 Gm/10 Ml Oral.Susp) 1 gm PO QID [facility] Last Admin: 04/23/22 09:12 Dose: 1 gm Tizanidine HCl (Tizanidine Hcl 4 Mg Tablet) 4 mg PO BID [facility] Last Admin: 04/23/22 09:13 Dose: 4 mg Venlafaxine HCl (Venlafaxine Hcl Er 150 Mg Cap.Er.24h) 150 mg PO DAILY [facility] Last Admin: 04/23/22 09:12 Dose: 150 mg Home Medications Medication Instructions Recorded Confirmed Last Taken Type alprazolam 1 mg tablet 0.5 - 1 tab PO DAILY PRN Anxiety 04/13/21 04/23/22 Unknown History melatonin 5 mg capsule 1 cap PO BEDTIME 04/13/21 04/23/22 Unknown History venlafaxine 150 mg 1 cap PO DAILY 04/13/21 04/23/22 Unknown History capsule,extended release 24 hr zolpidem 10 mg tablet 0.5 - 1 tab PO BEDTIME PRN insomnia 04/13/21 04/23/22 Unknown History amitriptyline 25 mg tablet 1 - 2 tab PO BEDTIME PRN Insomnia 04/23/22 04/23/22 Unknown History atorvastatin 20 mg tablet 1 tab PO DAILY 04/23/22 04/23/22 Unknown History levetiracetam 1,000 mg tablet 1 tab PO BID 04/23/22 04/23/22 Unknown History midodrine 10 mg tablet 1 tab PO TID PRN Hypotension 04/23/22 04/23/22 Unknown History potassium citrate 10 mEq (1,080 1 tab PO TID 04/23/22 04/23/22 Unknown History mg) tablet,extended release sucralfate 100 mg/mL oral 10 ml PO QID 04/23/22 04/23/22 Unknown History suspension tizanidine 4 mg tablet 4 mg PO BID 04/23/22 04/23/22 Unknown History Physical Exam Vital Signs: Vital Signs: Last Vital Signs Temp 98.1 F 04/23/22 04:18 Pulse 63 04/23/22 08:18 Resp 19 04/23/22 08:18 BP 156/78 H 04/23/22 08:18 Pulse Ox 100 04/23/22 08:18 O2 Del Method 04/23/22 08:18 BMI result Body Mass Index 31.1 Neuro: Other: she is alert and awake with normal spontaneity of speech fluency comprehension and affect. She is moderately obese. Face is symmetrical. Visual estrella are full to threat. Pupils are round reactive. There is no obvious focal arm or leg weakness. Plantars are flat. Results Labs CBC & Chem 7: 04/23/22 09:13 04/23/22 07:58 Labs: Short CBC 04/22/22 04/23/22 Range/Units 21:15 09:13 WBC 6.1 5.3 (4.8-10.8) X10*3/uL Hgb 6.8 L* D 12.5 D (12.0-16.0) g/dl Hct 21.9 L D 39.5 D (37.0-47.0) % Plt Count 184 D 274 D (160-400) X10*3/uL BMP 04/22/22 04/23/22 19:39 07:58 Sodium 132 L 139 Potassium 5.2 H 5.0 Chloride 107 116 H Carbon Dioxide 15 L 12 L BUN 27 H 24 H Creatinine 2.22 H 1.76 H Calcium 7.8 L D 7.9 L Liver Function 04/22/22 Range/Units 19:39 Total Bilirubin 0.4 (0.0-1.0) mg/dL Direct Bilirubin 0.2 (0.0-0.5) mg/dL AST 28 (5-31) U/L ALT 21 (0-31) U/L Alkaline Phosphatase 156 H D (39-117) U/L Albumin 3.2 L (3.5-5.0) g/dL Noncontrast head CT for her age revealed mild atrophy and possible bifrontal atrophy/ chronic trauma. Assessment and Plan (1) Epilepsy: Status: Acute 51 years old woman who carried diagnosis of epilepsy resulting in falls but her today's presentation was probably not related to that. Her blood pressure was quite low, which could have resulted in orthostatic dizziness and falling. (2) Dysautonomia: Status: Acute This probably was the cause of her fall today. Appropriate adjustment of medicine to avoid hypotension is recommended. She should be advised to drink a glass of water every morning before even coming out of bed and to make that possible she should put a glass of water on a bedside every evening. (3) Brain lesion: Status: Acute frontal lobe findings are probably chronic and might be related to old trauma. I would recommend at least a noncontrast MRI of brain for better definition. I did notice that she had repeated CT scan of brain in this hospital but no recent MRI. This would also help to put light on causes of epilepsy, which could be frontal lobe seizure disorder resulting in falls. Procedures Date of Service Date of Service: 04/23/22
--- NOTE | 2022-04-23 12:23 | MHC.SL.SWA ---
Speech Pathologist Impression: WFL Risk of Aspiration Due to: Neurological Condition Dysphasia Diet Status: Upgrade Liquid Consistency and Strategies for Safe Swallow: Liquid Intake Recommendation: Thin Solid Food Consistency: Dietary Recommendations: Regular Additional Modifications to Solid Foods: Patient seen for bedside swallow eval while in the ED. Patient denied difficulty swallowing, also denied changes to language and cognition. Patient answering questions appropriately, following directions, speech clear. Patient consumed dry bassem crackers and water by cup. Mildly prolonged chewing and mashing of solid food, secondary to lack of dentition, but with good oral clearance. No clinical signs of aspiration. Unremarkable exam. Recommend upgrade from NPO to unmodified diet REGULAR solids with THIN liquids, pills WHOLE in LIQUID. D/t edentulous state, recommend patient to self-select foods she is able to chew without difficulty, avoiding tough, hard to chew solids. Moisten food with sauce/gravy as needed to ease mastication. Sent [place] Message w/ update to , RN, RD, w/ request to upgrade patient to regular/thin once patient is cleared by MD for PO. Further ST intervention no longer warranted. Please re-refer if any concerns arise. Oral Medication Intake: Whole with Liquid Please contact the pharmacy regarding appropriate crushable or liquid drug formulations that are available whenever modified delivery is recommended. Compensatory Strategies and Precautions to be Taken for Safe Swallow: Sitting Upright (90 deg) Small Bites and Sips Alternate Liquids/Solids Avoid Specific Foods Supervision While Eating and Drinking for Safe Swallow: None Needed Foods to Avoid: Patient is edentulous, without dentures in the ED. Patient stated she left her dentures at home, bottom does not fit well. Patient stated that she is able to chew food just as well without her dentures. D/t lack of dentition, recommend patient to avoid tough difficult to chew solids Recommendation for Speech: NA:Typical Evaluation Sap Bw Architect Clinican/Clinical Fellow: No Supervisory Statement: I have reviewed and agree with the student/clinical fellow's documentation: N/A Speech Language Pathologist: Taisha Pal M.A., CCC-AIR BRAKE MAN
--- NOTE | 2022-04-23 12:37 | HO.PM.IMPN ---
Subjective Subjective Date of Service: 04/23/22 Interval History: No acute issues overnight; pain control poor Review of Systems Denies chest pain Denies shortness of breath Denies nausea vomiting diarrhea Denies fever chills Physical Exam Vital Signs: Vital Signs: Last Vital Signs Temp 98.1 F 04/23/22 04:18 Pulse 63 04/23/22 08:18 Resp 19 04/23/22 08:18 BP 156/78 H 04/23/22 08:18 Pulse Ox 100 04/23/22 08:18 O2 Del Method 04/23/22 08:18 BMI result Body Mass Index 31.1 Const: Other: Awake alert uncomfortable appearing lying on the bed Resp: Other: Clear to auscultation bilaterally no rales rhonchi or wheezes Cardio: Other: No S4; positive S1-S2; no S3 murmurs rubs or gallops GI: Other: Soft nontender nondistended with normoactive bowel sounds Neuro: Other: Cranial nerves 2-12 grossly intact as tested. Motor is 5 of 5 all extremities; sensation intact. Gait not tested Extrem: Other: No edema bilaterally Objective Data Active Medications Acetaminophen (Acetaminophen 325 Mg Tablet) 650 mg PO Q6H PRN PRN Reason: Pain, Mild (Pain Scale 1-3) Last Admin: 04/23/22 02:35 Dose: 650 mg Documented By: JERRELL Alprazolam (Alprazolam 0.5 Mg Tablet) 0.5 mg PO DAILY PRN PRN Reason: Anxiety Amitriptyline HCl (Amitriptyline Hcl 25 Mg Tablet) 25 mg PO BEDTIME PRN PRN Reason: Insomnia Atorvastatin Calcium (Atorvastatin Calcium 20 Mg Tablet) 20 mg PO DAILY [facility] Last Admin: 04/23/22 09:12 Dose: 20 mg Documented By: LORENZO Azithromycin (Azithromycin 500 Mg Tablet) 500 mg PO Q24H [facility] Hydromorphone HCl (Hydromorphone Hcl 0.5 Mg/0.5 Ml Syringe) 0.5 mg IVPUSH Q4H PRN; Protocol PRN Reason: Breakthrough Pain Ceftriaxone Sodium 1 gm/ (Sodium Chloride) 50 mls @ 100 mls/hr IV DAILY@2200 [facility] Last Infusion: 04/23/22 01:55 Dose: 0 mls/hr Documented By: JERRELL Sodium Bicarbonate 150 meq/ (Dextrose) 1,000 mls @ 50 mls/hr IV .Q20H [facility] Last Admin: 04/23/22 09:56 Dose: 50 mls/hr Documented By: LORENZO Levetiracetam (Levetiracetam 1,000 Mg Tablet) 1,000 mg PO BID [facility] Last Admin: 04/23/22 09:12 Dose: 1,000 mg Documented By: LORENZO Melatonin (Melatonin 3 Mg Tablet) 6 mg PO BEDTIME PRN PRN Reason: Insomnia Midodrine (Midodrine Hcl 10 Mg Tablet) 10 mg PO TID [facility] Last Admin: 04/23/22 09:47 Dose: 10 mg Documented By: LORENZO Midodrine (Midodrine Hcl 10 Mg Tablet) 10 mg PO TID PRN PRN Reason: Hypotension Last Admin: 04/23/22 09:12 Dose: 10 mg Documented By: LORENZO Omeprazole (Omeprazole 20 Mg Capsule.Dr) 20 mg PO DAILY@629 [facility] Last Admin: 04/23/22 09:12 Dose: 20 mg Documented By: LORENZO Pantoprazole Sodium (Pantoprazole Sodium 40 Mg/10 Ml Vial) 40 mg IVPUSH DAILY@629 [facility] Last Admin: 04/23/22 06:22 Dose: 40 mg Documented By: JERRELL Pharmacy Consult (Consult Rx Perform Med Rec) 1 each MISCELLANE ONCE PRN PRN Reason: Consult order Senna (Sennosides 8.6 Mg Tablet) 17.2 mg PO BEDTIME PRN PRN Reason: Constipation Sodium Chloride (0.9 % Sodium Chloride Flush 3 Ml Syringe) 3 ml IVFLUSH QSHIFT [facility] Last Admin: 04/23/22 08:29 Dose: Not Given Documented By: LORENZO Non-Admin Reason: IV Running Sucralfate (Sucralfate Oral Suspension 1 Gm/10 Ml Oral.Susp) 1 gm PO QID [facility] Last Admin: 04/23/22 09:12 Dose: 1 gm Documented By: LORENZO Tizanidine HCl (Tizanidine Hcl 4 Mg Tablet) 4 mg PO BID [facility] Last Admin: 04/23/22 09:13 Dose: 4 mg Documented By: LORENZO Venlafaxine HCl (Venlafaxine Hcl Er 150 Mg Cap.Er.24h) 150 mg PO DAILY [facility] Last Admin: 04/23/22 09:12 Dose: 150 mg Documented By: LORENZO Labs CBC & Chem 7: 04/23/22 09:13 04/23/22 07:58 Labs: Laboratory Results - last 24 hr 04/22/22 04/22/22 04/22/22 19:39 19:39 19:39 MCV MCH MCHC RDW Plt Count MPV Immature Gran % (Auto) Neut % (Auto) Lymph % (Auto) [place] % (Auto) Eos % (Auto) Baso % (Auto) Lymph # (Auto) [place] # (Auto) Eos # (Auto) Baso # (Auto) Abs Immat Gran (auto) Absolute Neuts (auto) Absolute Nucleated RBC Nucleated RBC % (auto) Smear Path Review PT 12.5 INR 1.1 Anion Gap 15 Estim Creat Clear Calc 33.0 Estimated GFR 23 Random Glucose 309 H Estimat Average Glucose Hemoglobin A1c % Lactic Acid Calcium 7.8 L D Magnesium 2.0 Iron TIBC % Saturation Unsat Iron Binding Ferritin Total Bilirubin 0.4 Direct Bilirubin 0.2 AST 28 ALT 21 Alkaline Phosphatase 156 H D Troponin I High Sens Total Protein 5.8 L Albumin 3.2 L Triglycerides Cholesterol LDL Cholesterol, Calc HDL Cholesterol Lipase 13 Vitamin B12 Folate Procalcitonin 0.24 Stool Occult Blood COVID-19 ([facility]) COVID-19 Clin Com Blood Type Antibody Screen Crossmatch 04/22/22 04/22/22 04/22/22 19:39 19:39 19:41 MCV MCH MCHC RDW Plt Count MPV Immature Gran % (Auto) Neut % (Auto) Lymph % (Auto) [place] % (Auto) Eos % (Auto) Baso % (Auto) Lymph # (Auto) [place] # (Auto) Eos # (Auto) Baso # (Auto) Abs Immat Gran (auto) Absolute Neuts (auto) Absolute Nucleated RBC Nucleated RBC % (auto) Smear Path Review PT INR Anion Gap Estim Creat Clear Calc Estimated GFR Random Glucose Estimat Average Glucose Hemoglobin A1c % Lactic Acid 1.8 Calcium Magnesium Iron 37 TIBC 346 % Saturation 11 L Unsat Iron Binding 309 Ferritin 27 Total Bilirubin Direct Bilirubin AST ALT Alkaline Phosphatase Troponin I High Sens Total Protein Albumin Triglycerides Cholesterol LDL Cholesterol, Calc HDL Cholesterol Lipase Vitamin B12 311 Folate 7.6 Procalcitonin Stool Occult Blood COVID-19 ([facility]) COVID-19 Clin Com Blood Type Antibody Screen Crossmatch 04/22/22 04/22/22 04/22/22 19:41 21:15 21:15 MCV 79.9 L MCH 24.8 L MCHC 31.1 RDW 15.2 Plt Count 184 D MPV 9.4 Immature Gran % (Auto) 0.7 H Neut % (Auto) 80.0 H Lymph % (Auto) 11.7 L [place] % (Auto) 6.1 Eos % (Auto) 1.3 Baso % (Auto) 0.2 Lymph # (Auto) 0.7 L [place] # (Auto) 0.4 Eos # (Auto) 0.1 Baso # (Auto) 0.0 Abs Immat Gran (auto) 0.04 H Absolute Neuts (auto) 4.9 Absolute Nucleated RBC 0.000 Nucleated RBC % (auto) 0.0 Smear Path Review SEE NOTE PT INR Anion Gap Estim Creat Clear Calc Estimated GFR Random Glucose Estimat Average Glucose Cancelled Hemoglobin A1c % Cancelled Lactic Acid Calcium Magnesium Iron TIBC % Saturation Unsat Iron Binding Ferritin Total Bilirubin Direct Bilirubin AST ALT Alkaline Phosphatase Troponin I High Sens 3.9 Total Protein Albumin Triglycerides Cholesterol LDL Cholesterol, Calc HDL Cholesterol Lipase Vitamin B12 Folate Procalcitonin Stool Occult Blood COVID-19 ([facility]) COVID-19 Clin Com Blood Type Antibody Screen Crossmatch 04/22/22 04/22/22 04/22/22 21:39 21:57 22:06 MCV MCH MCHC RDW Plt Count MPV Immature Gran % (Auto) Neut % (Auto) Lymph % (Auto) [place] % (Auto) Eos % (Auto) Baso % (Auto) Lymph # (Auto) [place] # (Auto) Eos # (Auto) Baso # (Auto) Abs Immat Gran (auto) Absolute Neuts (auto) Absolute Nucleated RBC Nucleated RBC % (auto) Smear Path Review PT INR Anion Gap Estim Creat Clear Calc Estimated GFR Random Glucose Estimat Average Glucose Hemoglobin A1c % Lactic Acid Calcium Magnesium Iron TIBC % Saturation Unsat Iron Binding Ferritin Total Bilirubin Direct Bilirubin AST ALT Alkaline Phosphatase Troponin I High Sens Total Protein Albumin Triglycerides Cholesterol LDL Cholesterol, Calc HDL Cholesterol Lipase Vitamin B12 Folate Procalcitonin Stool Occult Blood NEGATIVE COVID-19 ([facility]) Negative COVID-19 Clin Com See Note Blood Type O Positive Antibody Screen NEGATIVE Crossmatch See Detail 04/23/22 04/23/22 04/23/22 07:58 07:58 09:13 MCV 79.6 L MCH 25.2 L MCHC 31.6 RDW 15.7 Plt Count 274 D MPV 9.3 L Immature Gran % (Auto) 0.8 H Neut % (Auto) 69.1 Lymph % (Auto) 19.9 L [place] % (Auto) 6.8 Eos % (Auto) 2.8 Baso % (Auto) 0.6 Lymph # (Auto) 1.1 L [place] # (Auto) 0.4 Eos # (Auto) 0.2 Baso # (Auto) 0.0 Abs Immat Gran (auto) 0.04 H Absolute Neuts (auto) 3.7 Absolute Nucleated RBC 0.000 Nucleated RBC % (auto) 0.0 Smear Path Review PT INR Anion Gap 16 Estim Creat Clear Calc 41.7 Estimated GFR 30 Random Glucose 75 Estimat Average Glucose Hemoglobin A1c % Lactic Acid Calcium 7.9 L Magnesium Iron TIBC % Saturation Unsat Iron Binding Ferritin Total Bilirubin Direct Bilirubin AST ALT Alkaline Phosphatase Troponin I High Sens Total Protein Albumin Triglycerides 136 Cancelled Cholesterol 142 D Cancelled LDL Cholesterol, Calc 72 Cancelled HDL Cholesterol 43 Cancelled Lipase Vitamin B12 Folate Procalcitonin Stool Occult Blood COVID-19 ([place]) COVID-19 [facility] Blood Type Antibody Screen Crossmatch 04/23/22 04/23/22 09:13 09:13 MCV MCH MCHC RDW Plt Count MPV Immature Gran % (Auto) Neut % (Auto) Lymph % (Auto) [place] % (Auto) Eos % (Auto) Baso % (Auto) Lymph # (Auto) [place] # (Auto) Eos # (Auto) Baso # (Auto) Abs Immat Gran (auto) Absolute Neuts (auto) Absolute Nucleated RBC Nucleated RBC % (auto) Smear Path Review PT INR Anion Gap Estim Creat Clear Calc Estimated GFR Random Glucose Estimat Average Glucose 123 Hemoglobin A1c % 5.9 Lactic Acid Calcium Magnesium Iron TIBC % Saturation Unsat Iron Binding Ferritin Total Bilirubin Direct Bilirubin AST ALT Alkaline Phosphatase Troponin I High Sens < 3.5 Total Protein Albumin Triglycerides Cholesterol LDL Cholesterol, Calc HDL Cholesterol Lipase Vitamin B12 Folate Procalcitonin Stool Occult Blood COVID-19 ([place]) COVID-19 [employer] Com Blood Type Antibody Screen Crossmatch Assessment and Plan (1) Orthostatic hypotension dysautonomic syndrome: Status: Acute (2) Pneumonia: Status: Acute (3) CKD stage 3 secondary to diabetes: Status: Acute (4) Diabetes type 2, controlled: Status: Acute Plan 51 yo female with hx of orthostatic hypotension, hx of falls, pneumonia, bariatric surgery, substance misuse issues, CKD, DVT, PPM, anxiety, seizure disorder here with c/o weakness, falls. Found to be hypotensive on arrival at responded IV volume repletion. Brain CT demonstrated frontal changes.. . Question chronic 1. Orthostatic hypotension -responding to volume repletion -midodrine t.i.d. and p.r.n. -as per Neurology input, will do noncontrast MRI of brain 2. Right upper lobe pneumonia -continue ceftriaxone/azithromycin as ordered -switch to oral doxycycline upon DC 3. CKD stage 3 -responding to volume repletion -hyperchloremic metabolic acidosis. .. On bicarb drip. Consult Renal if no improvement in a.m. 4 Diabetes type 2 -appears to be diet controlled as A1c 5.6 -diabetic diet -lispro correctional scale Full code Lovenox Will require ongoing hospitalization for correction of metabolic acidosis with IV therapy and complete workup for presenting complaint Quality Stroke Does the patient have a stroke diagnosis?: No VTE Prior VTE?: No VTE Risk Level:: Medical - moderate - high VTE Device Contraindication: N/A - Device Ordered VTE Drug Contraindication: Treatment Not Indicated
--- NOTE | 2022-04-23 14:15 | MHC.CM.PN ---
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 SHE REPORTS SHE USES A WALKER AT HOME AND NO OTHER DME PT CONFIRMS HER PCP IS NICHELLE QUEZADA HCP ON FILE PT REPORTS SHE IS COVID VACCINATED WITH [employer] AND ONE [employer] BOOSTER IMM DELIVERED AND A COPY WAS SENT TO [facility] CURRENT DC PLAN IS HOME WITH RESUMPTION OF PRESSURE WELDER SERVICES. PT WILL CALL [facility] FOR TRANSPORT HOWEVER MAY NEED ASSISTANCE IF THEY ARE UNAVAILABLE
[2022-04-23] MEDS: HYDROmorphone HCl 0.5 MG/0.5 ML SYRINGE IVPUSH ×2 (14:23→19:20)
[2022-04-23 17:40] LABS: Glucose, Whole Blood 74 mg/dL (60-115)
--- NOTE | 2022-04-23 20:00 | PC.NURSE ---
Report given to overflow nurse, patient to be transferred to overflow unit bed 5.
[2022-04-23 20:49] LABS: Glucose, Whole Blood 102 mg/dL (60-115)
[2022-04-23] MEDS: ALPRAZolam 0.5 MG TABLET PO (21:50)
[2022-04-23] MEDS: Amitriptyline HCl 25 MG TABLET PO (21:50)
[2022-04-23] MEDS: Azithromycin 500 MG TABLET PO (21:50)
[2022-04-23] MEDS: Melatonin 3 MG TABLET 6 MG PO (22:28)
--- NOTE | 2022-04-23 23:03 | PC.NURSE ---
patient a&ox3, monitor worker, paced 60s, ivf running per order, pt medicated per order, vss, call ku within reach, will continue to monitor.
[2022-04-24 00:29] VITALS: BP 123/76; PULSE 62; RESP 17; TEMP 36.4; O2SAT 93
[2022-04-24 03:48] VITALS: RESP 16
[2022-04-24] MEDS: HYDROmorphone HCl 0.5 MG/0.5 ML SYRINGE IVPUSH ×2 (03:48→08:44)
[2022-04-24 03:55] VITALS: BP 160/85; PULSE 59; RESP 20; O2SAT 97
--- NOTE | 2022-04-24 06:06 | PC.NURSE ---
Pt's bicarbonate drip is still running. This RN called pharmacy to request a mixed bag. Pharmacy informed this RN that the med would not be available until 0700. Approximately 50 mL of bicarb left in current infusion.
[2022-04-24] MEDS: Pantoprazole Sodium 40 MG/10 ML VIAL IVPUSH (06:27)
[2022-04-24] MEDS: Omeprazole 20 MG CAPSULE.DR PO (06:27)
[2022-04-24 06:55] LABS: MANUAL DIFF FLAG NO
[2022-04-24 06:59] LABS: Basophils Absolute Auto 0.1 X10*3/uL (0.0-0.2); Basophils Percent Auto 0.9 % (0-2); Eosinophils Absolute Auto 0.2 X10*3/uL (0.0-0.4); Eosinophils Percent Auto 2.8 % (0-4); Hematocrit 37.5 % (37.0-47.0); Hemoglobin 11.8 g/dl (12.0-16.0); Imm Gran Abs Auto 0.03 X10*3/uL (0.00-0.03); Imm Gran Pct Auto 0.5 % (0.0-0.4); Lymphocytes Absolute Auto 0.9 X10*3/uL (1.2-4.9); Lymphocytes Percent Auto 15.1 % (20-40); Mean Corpuscular HGB Conc 31.5 g/dl (31.0-35.0); Mean Corpuscular Hemoglobin 24.8 pg (27.0-33.0); Mean Corpuscular Volume 78.9 fL (80.0-98.0); Mean Platelet Volume 9.6 fL (9.4-12.3); Monocytes Absolute Auto 0.4 X10*3/uL (0.1-1.2); Monocytes Percent Auto 6.9 % (2-11); Neutrophils Absolute Auto 4.1 x10*3/uL (2.0-8.3); Neutrophils Percent Auto 73.8 % (45-73); Platelet Count 304 X10*3/uL (160-400); Red Blood Count 4.75 X10*6/uL (4.20-5.50); Red Cell Distribution Width 15.6 % (11.0-16.0); White Blood Count 5.6 X10*3/uL (4.8-10.8)
[2022-04-24 07:23] LABS: Alanine Aminotransferase 29 U/L (0-31); Albumin Level 3.4 g/dL (3.5-5.0); Alkaline Phosphatase 159 U/L (39-117); Anion Gap 13 (12-20); Aspartate Amino Transferase 36 U/L (5-31); Bilirubin Total 0.4 mg/dL (0.0-1.0); Blood Urea Nitrogen 19 mg/dL (9-16); Calcium 8.3 mg/dL (8.4-10.2); Carbon Dioxide 21 mmol/L (22-29); Chloride 110 mmol/L (96-108); Creatinine Clr Calc Pharmacy 49.2; Estimated Glomerular Filt Rate 37; Glucose Fasting 87 mg/dL (60-99); Potassium 4.6 mmol/L (3.3-5.1); Sodium 139 mmol/L (135-145); Total Protein 5.9 g/dL (6.5-8.0)
[2022-04-24 07:39] LABS: Glucose, Whole Blood 73 mg/dL (60-115)
[2022-04-24] MEDS: Sodium Bicarbonate 8.4% 150 MEQ in Dextrose 5 % 850 ML 50 MEQ IV ×2 (07:57→08:00)
[2022-04-24] MEDS: TiZANidine HCL 4 MG TABLET PO (08:47)
[2022-04-24] MEDS: Midodrine HCl 10 MG TABLET PO (08:48)
[2022-04-24] MEDS: Venlafaxine HCl ER 150 MG CAP.ER.24H PO (08:48)
[2022-04-24] MEDS: Atorvastatin Calcium 20 MG TABLET PO (08:48)
[2022-04-24 09:22] VITALS: BP 157/79; PULSE 78; RESP 12; O2SAT 100
[2022-04-24] MEDS: Sucralfate Oral Suspension 1 GM/10 ML ORAL.SUSP PO (09:58)
[2022-04-24] MEDS: levETIRAcetam 1,000 MG TABLET 1000 MG PO (09:58)
[2022-04-24 12:48] LABS: Glucose, Whole Blood 85 mg/dL (60-115)
--- NOTE | 2022-04-24 13:01 | PM.DS ---
DS: Providers Provider Date of Service: 04/24/22 Date of admission: 04/22/22 22:59 Date of discharge: 04/24/22 Primary care physician: Moira Tejeda MD Consults: 04/22/22 23:01 Consult to Neurology Routine Consulting Provider: Terrance Bess Reason for consultation: CVA; L4 fx; DS: Diagnosis Discharge Diagnosis (1) Orthostatic hypotension dysautonomic syndrome: Status: Acute (2) Pneumonia: Status: Acute (3) CKD stage 3 secondary to diabetes: Status: Acute (4) Diabetes type 2, controlled: Status: Acute DS: Summary Hospital Course Hospital Course: 51-year-old female with a past medical history of orthostatic hypotension on midodrine, history of? DVT/PE-currently not on? anticoagulation currently, history of migraine headaches, diabetes, CKD stage 3, chronic back pain, history of bradycardia status post pacemaker, seizure disorder, anxiety, depression, history of endometrial cancer, history of bariatric surgery, history of multiple falls presented to the hospital today with a chief complaint of fall.? Patient initially presented to the hospital after a fall had CT head done which showed anterior bilateral frontal lobe loss of garcia-white matter differentiation question subacute infarction; CT C-spine showed no acute trauma; CT chest showed subacute L4 compression fracture; mixed ground-glass opacities and consolidations since in the right upper lobe concerning for contusion versus aspiration; CT abdomen showed no acute findings; patient initially left AMA; assist CT results are back patient was called in to come to the hospital for further evaluation.? Hospital course Admitted to general medical floor; hemoglobin noted to be 6.8 on arrival. No overt bleeding noted. Patient transfuse 2 units of packed red cells appropriate response. Was started on ceftriaxone and azithromycin for likely right upper lobe aspiration. Was seen in consultation by Neurology who felt the dysautonomia was a cause of her fall and recommended scheduling midodrine. CT of head did show frontal abnormalities for which neurology recommended MRI however given the presence of a pacemaker it was elected to be done as outpatient if needed. Thought by Neurology to be chronic changes. Patient was seen by Physical therapy and deemed appropriate for home without services. Patient utilize minimal medication for compression fracture was given a script for small amount of oxycodone. She will be discharged home to follow-up with her PCP. She will complete course oral doxycycline and will need follow-up chest x-ray in approximately 6 weeks Time Spent with Patient Time attestation: Total time spent providing and/or coordinating discharge services: Discharge coordination time: Greater than 30 minutes Quality: Safe Use of Opioids Does Pt have an Active Cancer Diagnosis on the Problem List?: No Quality: Stroke Does the patient have a stroke diagnosis?: No Physical Exam Vital Signs: Vital Signs: Last Vital Signs Temp 97.5 F 04/24/22 00:29 Pulse 78 04/24/22 09:22 Resp 12 04/24/22 09:22 BP 157/79 H 04/24/22 09:22 Pulse Ox 100 04/24/22 09:22 O2 Del Method 04/24/22 03:55 BMI result Body Mass Index 31.1 Const: Other: Awake alert uncomfortable appearing lying on the bed Resp: Other: Clear to auscultation bilaterally no rales rhonchi or wheezes Cardio: Other: No S4; positive S1-S2; no S3 murmurs rubs or gallops GI: Other: Soft nontender nondistended with normoactive bowel sounds Neuro: Other: Cranial nerves 2-12 grossly intact as tested. Motor is 5 of 5 all extremities; sensation intact. Gait not tested Extrem: Other: No edema bilaterally DS: Data Data Completed and Pending Labs on day of discharge: Laboratory Results - last 24 hr 04/23/22 04/23/22 04/24/22 17:32 20:43 06:39 WBC 5.6 RBC 4.75 Hgb 11.8 L Hct 37.5 MCV 78.9 L MCH 24.8 L MCHC 31.5 RDW 15.6 Plt Count 304 MPV 9.6 Immature Gran % (Auto) 0.5 H Neut % (Auto) 73.8 H Lymph % (Auto) 15.1 L [place] % (Auto) 6.9 Eos % (Auto) 2.8 Baso % (Auto) 0.9 Lymph # (Auto) 0.9 L [place] # (Auto) 0.4 Eos # (Auto) 0.2 Baso # (Auto) 0.1 Abs Immat Gran (auto) 0.03 Absolute Neuts (auto) 4.1 Absolute Nucleated RBC 0.000 Nucleated RBC % (auto) 0.0 Sodium Potassium Chloride Carbon Dioxide Anion Gap BUN Creatinine Estim Creat Clear Calc Estimated GFR POC Glucose 74 102 Fasting Glucose Calcium Total Bilirubin AST ALT Alkaline Phosphatase Total Protein Albumin 04/24/22 04/24/22 04/24/22 06:39 07:36 12:14 WBC RBC Hgb Hct MCV MCH MCHC RDW Plt Count MPV Immature Gran % (Auto) Neut % (Auto) Lymph % (Auto) [place] % (Auto) Eos % (Auto) Baso % (Auto) Lymph # (Auto) [place] # (Auto) Eos # (Auto) Baso # (Auto) Abs Immat Gran (auto) Absolute Neuts (auto) Absolute Nucleated RBC Nucleated RBC % (auto) Sodium 139 Potassium 4.6 Chloride 110 H Carbon Dioxide 21 L Anion Gap 13 BUN 19 H Creatinine 1.49 H Estim Creat Clear Calc 49.2 Estimated GFR 37 POC Glucose 73 85 Fasting Glucose 87 Calcium 8.3 L Total Bilirubin 0.4 AST 36 H ALT 29 Alkaline Phosphatase 159 H Total Protein 5.9 L Albumin 3.4 L Preliminary micro results at discharge 04/22/22 19:29 Blood Culture - Preliminary Blood - Venous No growth after 24 hours. 04/22/22 19:39 Blood Culture - Preliminary Blood - Venous No growth after 24 hours. Discharge Plan Discharge Patient Disposition: Home, Self-Care Discharge Diagnosis: Dysautonomia Referrals: Moira Tejeda MD [Primary Care Provider] - 1 Week Discharge Medications: New midodrine 10 mg Tablet 10 mg PO TID Qty: 90 0RF doxycycline hyclate 100 mg tablet 100 mg PO BID Qty: 20 0RF oxycodone 5 mg tablet 5 mg PO Q6H PRN (Reason: pain) Qty: 15 0RF Rx Instructions: Partial Fill upon patient request. Continued pantoprazole 40 mg tablet,delayed release (DR/EC) 40 mg PO DAILY Qty: 30 3RF alprazolam 1 mg tablet 0.5 - 1 tab PO DAILY PRN (Reason: Anxiety) venlafaxine 150 mg capsule,extended release 24hr 1 cap PO DAILY zolpidem 10 mg tablet 0.5 - 1 tab PO BEDTIME PRN (Reason: insomnia) melatonin 5 mg capsule 1 cap PO BEDTIME acetaminophen 650 mg tablet extended release 650 mg PO Q8H PRN (Reason: back pain) Qty: 60 0RF ondansetron 4 mg tablet,disintegrating 4 mg PO Q8H PRN (Reason: nausea and vomiting) Qty: 10 0RF potassium citrate 10 mEq (1,080 mg) tablet extended release 1 tab PO TID tizanidine 4 mg tablet 4 mg PO BID atorvastatin 20 mg tablet 1 tab PO DAILY sucralfate 100 mg/mL suspension 10 ml PO QID amitriptyline 25 mg tablet 1 - 2 tab PO BEDTIME PRN (Reason: Insomnia) levetiracetam 1,000 mg tablet 1 tab PO BID Discontinued azithromycin 500 mg tablet See Rx Instructions .ROUTE .COMPLEX Qty: 3 0RF Rx Instructions: For 500 mg dose pack: take 500 mg once daily for 3 days midodrine 10 mg tablet 1 tab PO TID PRN (Reason: Hypotension) Discharge Orders: Discharge Order (Routine); Ordered 04/24/22 Ordered By: Felipe No Diet: advance to usual diet Activity on Discharge: As tolerated Stand Alone Forms: Patient Portal Discharge page Care Plan Goals: Continue midodrine 10 mg 3 times a day until seen by her primary care Health Concerns: Complete course of doxycycline for pneumonia. Utilize oxycodone as needed for compression fracture pain Plan of Treatment: Resume all pre-hospital therapies Assessment: See discharge summary
--- NOTE | 2022-04-24 13:04 | MHC.CM.PN ---
Patient currently in overflow unit. Received notification that patient will be discharged. Patient will arrange her own transport. ROLAND Vines aware. Continue to monitor for d/c needs.
== END 2022-04-24 14:01 | disposition home or self-care (01) | DRG 91 ==
LOC: HO.ED 20:40 → HO.EDOVER 23:15
PROVIDERS: Family Medicine; Admitting Provider Hospitalist; Emergency Provider Emergency Medicine; PCP Internal Medicine; Visit Provider Hospitalist
DX: G90.1 Familial dysautonomia [Riley-Day] (principal); J69.0 Pneumonitis due to inhalation of food and vomit; N17.9 Acute kidney failure, unspecified; E87.2 Acidosis; G40.909 Epilepsy, unspecified, not intractable, without status epilepticus; E11.22 Type 2 diabetes mellitus with diabetic chronic kidney disease; N18.30 Chronic kidney disease, stage 3 unspecified; E86.0 Dehydration; F32.A Depression, unspecified; G89.29 Other chronic pain; D63.1 Anemia in chronic kidney disease; E66.9 Obesity, unspecified; Z68.31 Body mass index [BMI] 31.0-31.9, adult; F41.9 Anxiety disorder, unspecified; R29.6 Repeated falls; Z98.84 Bariatric surgery status; Z95.0 Presence of cardiac pacemaker; Z85.42 Personal history of malignant neoplasm of other parts of uterus; Z91.81 History of falling; Z20.822 Contact with and (suspected) exposure to COVID-19; Z88.6 Allergy status to analgesic agent; Z88.8 Allergy status to other drugs, medicaments and biological substances; Z79.899 Other long term (current) drug therapy
CPT/HCPCS: 36415; 80048; 80053; 80061; 80076; 82272; 82607; 82728; 82746; 82947; 83036; 83540; 83605; 83690; 83735; 84145; 84484; 85025; 85610; 86850; 86900; 86901; 86923; 87040; 87635; 92610; 93005; 93880; 97162; 97166; 97530; 99285; J0696; J1170; J2543; P9016

== ENCOUNTER 2022-05-05 06:40 | Emergency (ER) | payer OTHER, SELFPAY ==
--- NOTE | ~2022-05-05 | CT_ITS ---
EXAMINATION: CT ABDOMEN AND PELVIS WITHOUT CONTRAST CLINICAL INFORMATION: 51-year-old female with right flank pain. COMPARISON: 04/22/2022 TECHNIQUE: Multidetector volumetric imaging was performed from the superior aspect of the liver through the pubic symphysis. Sagittal and coronal reformatted images were obtained on the technologist's workstation. This CT examination was performed using dose optimization techniques as appropriate, variously including the following: *Automated exposure control *Adjustment of mA and/or kV according to patient size (this includes techniques or standardized protocols for targeted exams where dose is matched to indication/reason for exam; i.e. extremities or head) *Use of iterative reconstruction technique DLP: 777 mGy-cm FINDINGS: LUNG BASES: The visualized lung bases are unremarkable. No pleural effusion. Streak artifact is produced by the right atrial and right ventricular pacing leads. LIVER: The liver has normal size, shape, and attenuation. No evidence of liver mass. GALLBLADDER AND BILIARY TREE: Gallbladder is surgically absent. No dilated bile ducts. PANCREAS: Normal. No edema, pancreatic ductal dilatation or mass. SPLEEN: Normal. ADRENAL GLANDS: The myelolipoma of the right adrenal gland measures 2.7 cm AP. No new adrenal findings. KIDNEYS AND URETERS: Again noted is the horseshoe kidney and unchanged appearance of bilateral renal calculi compared to 04/22/2022. A 0.5 cm stone of the mid to lower pole of the right kidney has attenuation of at least 700 Hounsfield units and is located 12.2 cm deep from the skin surface at the posterior axillary line. The largest calculus or cluster of calculi in the posteromedial mid to lower pole of the left kidney has maximum dimension of 2.6 cm, density of 1150 HU, located approximately 12.3 cm deep from the skin surface at the posterior axillary line. No evidence of ureteral stones or acute hydroureteronephrosis. There are phleboliths within the lower pelvis. No perinephric edema or perinephric fluid collection. BLADDER: Normal. No calculi or wall thickening. BOWEL AND PERITONEUM: Surgical changes from gastric bypass. No dilated bowel loops. No wall thickening at the site of sigmoid anastomosis. No acute inflammatory change or obstruction along the gastrointestinal tract. No abdominal free fluid or pneumoperitoneum. Diverticula of the colon without evidence of diverticulitis. Moderate to large amount fecal material in the colon suggests possibility of constipation. ABDOMINAL WALL: Chronic diastases of rectus abdominis muscles. Again noted is the lower abdominal wall hernia containing fat and unobstructed small bowel. This is unchanged compared to 04/22/2022. VASCULATURE: Abdominal aorta is normal in caliber. LYMPH NODES: No pathologic sized lymph nodes in the abdomen or pelvis. No inguinal lymphadenopathy. PELVIC VISCERA: Status post hysterectomy. No adnexal mass. No pelvic free fluid. SKELETAL: No new findings in the degenerated spine. There is an old concave depression deformity of the L3 vertebral body. Again noted is the fracture involving the L4 superior endplate with loss of height of the mid to anterior third of the vertebral body, unchanged from 04/22/2022. CT/CT abdomen pelvis wo con IMPRESSION: * No acute imaging abnormalities in the abdomen or pelvis compared to 04/22/2022. * Horseshoe kidney and multiple bilateral renal calculi which are unchanged in size and position compared to prior exam. No interval development of a ureteral stone or hydroureteronephrosis. * Colonic diverticulosis without diverticulitis. * Midline lower abdominal wall hernia contains fat and small bowel. * Again noted are the compression fractures of L3 and L4 vertebral bodies. No new skeletal abnormalities.
--- NOTE | ~2022-05-05 | XR_ITS ---
EXAMINATION: XR CHEST CLINICAL INFORMATION: Right-sided chest pain. COMPARISON: None TECHNIQUE: Frontal view of the chest was obtained. FINDINGS: The lungs are hypoexpanded but clear. The heart size and pulmonary vascularity is normal. There are pacer electrodes in right atrium and right ventricle. No gross bony abnormality seen. XR/XR chest 1V IMPRESSION: Unremarkable chest exam.
[2022-05-05 06:44] VITALS: BP 132/70; PULSE 94; O2SAT 97
[2022-05-05 06:56] VITALS: BP 139/76; PULSE 100; RESP 18; TEMP 37.1; O2SAT 98; BMI 31.3
[2022-05-05 07:47] LABS: Hematocrit 39.1 % (37.0-47.0); Hemoglobin 12.3 g/dl (12.0-16.0); Mean Corpuscular HGB Conc 31.5 g/dl (31.0-35.0); Mean Corpuscular Hemoglobin 25.6 pg (27.0-33.0); Mean Corpuscular Volume 81.3 fL (80.0-98.0); Mean Platelet Volume 9.5 fL (9.4-12.3); Platelet Count 334 X10*3/uL (160-400); Red Blood Count 4.81 X10*6/uL (4.20-5.50); Red Cell Distribution Width 15.5 % (11.0-16.0); White Blood Count 7.3 X10*3/uL (4.8-10.8)
--- NOTE | 2022-05-05 07:54 | ED.ABDPAIN ---
HPI - Abdominal Pain General Chief Complaint: Abdominal Pain Stated Complaint: R Flank Pain Time Seen by Provider: 05/05/22 07:39 Source: patient Limitations: no limitations History of Present Illness HPI narrative: This is a 51 years old patient presented with a chief complaint of right flank pain which is worse with movement, the pain is ongoing for about 2 days, denies any fever chills vomiting diarrhea. No pain in the abdomen just in the right flank MD elicited complaint: flank pain (rt flank) Onset (ago): day(s) (2) Pain Consistency: constant Location: R flank Severity: moderate Quality: cramping Radiation: none Migration to: no migration Exacerbating factors: nothing Relieving factors: nothing Related Data Home Medications Medication Instructions Recorded Confirmed alprazolam 1 mg tablet 0.5 - 1 tab PO DAILY PRN Anxiety 04/13/21 04/23/22 melatonin 5 mg capsule 1 cap PO BEDTIME 04/13/21 04/23/22 venlafaxine 150 mg 1 cap PO DAILY 04/13/21 04/23/22 capsule,extended release 24 hr zolpidem 10 mg tablet 0.5 - 1 tab PO BEDTIME PRN insomnia 04/13/21 04/23/22 amitriptyline 25 mg tablet 1 - 2 tab PO BEDTIME PRN Insomnia 04/23/22 04/23/22 atorvastatin 20 mg tablet 1 tab PO DAILY 04/23/22 04/23/22 levetiracetam 1,000 mg tablet 1 tab PO BID 04/23/22 04/23/22 potassium citrate 10 mEq (1,080 1 tab PO TID 04/23/22 04/23/22 mg) tablet,extended release sucralfate 100 mg/mL oral 10 ml PO QID 04/23/22 04/23/22 suspension tizanidine 4 mg tablet 4 mg PO BID 04/23/22 04/23/22 Previous Rx's Medication Instructions Recorded acetaminophen 650 mg 650 mg PO Q8H PRN back pain #60 04/16/21 tablet,extended release tabs ondansetron 4 mg disintegrating 4 mg PO Q8H PRN nausea and 09/23/21 tablet vomiting #10 tabs pantoprazole 40 mg tablet,delayed 40 mg PO DAILY #30 tabs 09/24/21 release doxycycline hyclate 100 mg tablet 100 mg PO BID #20 tabs 04/24/22 midodrine 10 mg tablet 10 mg PO TID #90 tabs 04/24/22 oxycodone 5 mg tablet 5 mg PO Q6H PRN pain #15 tabs 04/24/22 oxycodone 5 mg capsule 5 mg PO Q8H PRN pain #12 caps 05/05/22 Allergies Allergy/AdvReac Type Severity Reaction Status Date / Time egg [EGGS] AdvReac Intermediate NAUSEA/VOMI Verified 09/26/20 17:45 TING sumatriptan [From IMITREX] AdvReac Intermediate HEART Verified 09/26/20 17:45 PALPITATIONS Ibuprofen Allergy Unknown Unknown Uncoded 09/01/20 14:56 Review of Systems Review of Systems Yes all other systems are reviewed and are negative Cardiovascular: Reports no additional cardiovascular complaints Respiratory: Reports no additional respiratory complaints Reports system reviewed and no additional complaints, except as documented PMFSH Past Medical History Medical History Anastomotic ulcer S/P gastric bypass Anemia Anxiety Back pain Brain lesion Depression Diabetes Diverticulitis DVT of right axillary vein, acute Endometrial cancer Hypotension Pacemaker (~2015) Pulmonary embolus, left (~04/2020) Renal stones Seizure disorder Status post extracorporeal shock wave therapy Surgical History H/O tooth extraction History of esophagogastroduodenoscopy (~06/2020) History of Trisha-en-Y gastric bypass (~10/2019) History of sleeve gastrectomy (~2014) Hx laparoscopic cholecystectomy Hx of appendectomy Hx of hernia repair S/P CELESTINO (total abdominal hysterectomy) Family History Family History Father No problems noted. Mother Diabetes Chronic mental illness Father No problems noted. Mother No problems noted. Social History Social History Household Members: None and Unknown / Unable to assess Housing: Unknown / Unable to assess Do you presently have visiting nurse or other home services: No Unable to assess alcohol history related to: Unable to respond Alcohol intake: current Alcohol intake frequency: 0-2 drinks per day Second Hand Smoke Exposure: No Substance Use Type: Marijuana, Opiates and Prescription Drugs Advance Directives: No Advance Directives Information Provided: Yes service: No Current occupational status: disabled Physical Exam ED Vital Signs: Vital Signs - 24 hr 05/05/22 06:56 05/05/22 09:33 05/05/22 12:18 Temperature 98.7 F 97.6 F 97.6 F Pulse Rate 100 69 66 Respiratory Rate 18 18 18 Blood Pressure 139/76 159/77 H 149/80 H Pulse Oximetry 98 99 98 Oxygen Delivery Method Room Air Room Air 05/05/22 12:22 05/05/22 14:29 Temperature 98.7 F Pulse Rate 81 Respiratory Rate 18 12 Blood Pressure 150/75 H Pulse Oximetry 99 Oxygen Delivery Method Room Air BMI result Body Mass Index 31.3 Const General: cooperative, comfortable and no acute distress Nutritional Appearance: average body habitus Orientation/consciousness: patient oriented x3 Limitations: no limitations HENMT Head: Yes normal to inspection Ears: hearing grossly normal bilaterally General nose exam: Normal external nose present Face and sinus: Yes normal facial exam Mouth: Normal oral and palatal mucosa present Throat: Yes posterior oropharynx normal Neck Neck: Yes full ROM Chest Chest palpation & inspection: normal inspection of the chest Resp Effort & Inspection: normal respiratory effort and able to speak in complete sentences Auscultation: clear to auscultation bilaterally Cardio Jugular venous distension: no JVD Rate: regular rate Rhythm: regular rhythm GI Other: Tenderness in the right flank present Inspection: Yes normal to inspection Auscultation: normal bowel sounds Skin General skin exam: no rashes or lesions noted and elasticity normal Lesions: no lesions Rashes: no rashes Neuro General: patient oriented x3 Procedures EJ/Peripheral Line Arm R: Time Out Performed: Yes Skin Cleansed in Sterile Fashion: Yes Size (gauge): 20 IV Secured and Dressing Applied: Yes Patient Tolerated Procedure: well Additional Comments: Under US linear probe cannulated rt brachial vein with 20 alis Introcan 1. 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 purchaser [employer] and PCP Reevaluation #2: I spoke with renal as well Dr Cortez MDM - Abdominal Pain Lab Data Result diagrams: 05/05/22 07:38 05/05/22 13:34 Labs: Lab Results 05/05/22 05/05/22 05/05/22 Range/Units 07:38 07:38 08:45 WBC 7.3 (4.8-10.8) X10*3/uL RBC 4.81 (4.20-5.50) X10*6/uL Hgb 12.3 (12.0-16.0) g/dl Hct 39.1 (37.0-47.0) % MCV 81.3 (80.0-98.0) fL MCH 25.6 L (27.0-33.0) pg MCHC 31.5 (31.0-35.0) g/dl RDW 15.5 (11.0-16.0) % Plt Count 334 (160-400) X10*3/uL MPV 9.5 (9.4-12.3) fL Absolute Nucleated RBC 0.000 (0.0-0.012) X10*3/uL Nucleated RBC % (auto) 0.0 (0.0-0.2) /100WBC Sodium 137 (135-145) mmol/L Potassium 4.0 (3.3-5.1) mmol/L Chloride 106 (96-108) mmol/L Carbon Dioxide 18 L (22-29) mmol/L Anion Gap 17 (12-20) BUN 43 H D (9-16) mg/dL Creatinine 3.03 H (0.5-1.4) mg/dL Estim Creat Clear Calc 24.2 Estimated GFR 16 Random Glucose 291 H (60-115) mg/dL Calcium 8.3 L (8.4-10.2) mg/dL Total Bilirubin 0.3 (0.0-1.0) mg/dL Direct Bilirubin < 0.2 (0.0-0.5) mg/dL AST 12 D (5-31) U/L ALT 11 (0-31) U/L Alkaline Phosphatase 176 H (39-117) U/L Total Protein 6.3 L (6.5-8.0) g/dL Albumin 3.7 (3.5-5.0) g/dL Lipase 22 (8-78) U/L Urine Color YELLOW Urine Appearance CLEAR Urine pH 5.0 (5.0-8.0) Ur Specific [place] 1.010 (1.005-1.025) Urine Protein NEG (NEG-TRACE) MG/DL Urine Glucose (UA) NEG (NEG) MG/DL Urine Ketones NEG (NEG) MG/DL Urine Blood 1+ H (NEG) Urine Nitrite NEG (NEG) Ur Leukocyte Esterase TRACE H (NEG) Urine RBC 0-2 (0) /HPF Urine WBC 1-4 (0-4) /HPF Ur Squamous Epith Cells TRACE /LPF Urine Bacteria 1+ /LPF 05/05/22 Range/Units 13:34 WBC (4.8-10.8) X10*3/uL RBC (4.20-5.50) X10*6/uL Hgb (12.0-16.0) g/dl Hct (37.0-47.0) % MCV (80.0-98.0) fL MCH (27.0-33.0) pg MCHC (31.0-35.0) g/dl RDW (11.0-16.0) % Plt Count (160-400) X10*3/uL MPV (9.4-12.3) fL Absolute Nucleated RBC (0.0-0.012) X10*3/uL Nucleated RBC % (auto) (0.0-0.2) /100WBC Sodium 139 (135-145) mmol/L Potassium 4.2 (3.3-5.1) mmol/L Chloride 107 (96-108) mmol/L Carbon Dioxide 22 (22-29) mmol/L Anion Gap 14 (12-20) BUN 37 H (9-16) mg/dL Creatinine 2.65 H (0.5-1.4) mg/dL Estim Creat Clear Calc 27.7 Estimated GFR 19 Random Glucose 96 (60-115) mg/dL Calcium 8.0 L (8.4-10.2) mg/dL Total Bilirubin (0.0-1.0) mg/dL Direct Bilirubin (0.0-0.5) mg/dL AST (5-31) U/L ALT (0-31) U/L Alkaline Phosphatase (39-117) U/L Total Protein (6.5-8.0) g/dL Albumin (3.5-5.0) g/dL Lipase (8-78) U/L Urine Color Urine Appearance Urine pH (5.0-8.0) Ur Specific [place] (1.005-1.025) Urine Protein (NEG-TRACE) MG/DL Urine Glucose (UA) (NEG) MG/DL Urine Ketones (NEG) MG/DL Urine Blood (NEG) Urine Nitrite (NEG) Ur Leukocyte Esterase (NEG) Urine RBC (0) /HPF Urine WBC (0-4) /HPF Ur Squamous Epith Cells /LPF Urine Bacteria /LPF Discharge Plan Discharge Clinical Impression: Acute flank pain, Renal failure (ARF), acute on chronic Patient Disposition: Home, Self-Care Instructions: Flank Pain (ED) Additional Instructions: Follow-up with you kidney doctor call on Saturday you creatinine was a little bit worse than before. Also call your primary care physician to make an appointment for for follow-up Prescriptions: New oxycodone 5 mg capsule 5 mg PO Q8H PRN (Reason: pain) Qty: 12 0RF Rx Instructions: Partial Fill upon patient request. No Action pantoprazole 40 mg tablet,delayed release (DR/EC) 40 mg PO DAILY Qty: 30 3RF alprazolam 1 mg tablet 0.5 - 1 tab PO DAILY PRN (Reason: Anxiety) venlafaxine 150 mg capsule,extended release 24hr 1 cap PO DAILY zolpidem 10 mg tablet 0.5 - 1 tab PO BEDTIME PRN (Reason: insomnia) melatonin 5 mg capsule 1 cap PO BEDTIME acetaminophen 650 mg tablet extended release 650 mg PO Q8H PRN (Reason: back pain) Qty: 60 0RF ondansetron 4 mg tablet,disintegrating 4 mg PO Q8H PRN (Reason: nausea and vomiting) Qty: 10 0RF potassium citrate 10 mEq (1,080 mg) tablet extended release 1 tab PO TID tizanidine 4 mg tablet 4 mg PO BID atorvastatin 20 mg tablet 1 tab PO DAILY sucralfate 100 mg/mL suspension 10 ml PO QID amitriptyline 25 mg tablet 1 - 2 tab PO BEDTIME PRN (Reason: Insomnia) levetiracetam 1,000 mg tablet 1 tab PO BID midodrine 10 mg Tablet 10 mg PO TID Qty: 90 0RF doxycycline hyclate 100 mg tablet 100 mg PO BID Qty: 20 0RF oxycodone 5 mg tablet 5 mg PO Q6H PRN (Reason: pain) Qty: 15 0RF Rx Instructions: Partial Fill upon patient request. Interventions: ED Discharge Assessment Last Done: 05/05/22 15:17 Discharge Date/Time: 05/05/22 15:18
[2022-05-05 08:00] LABS: Alanine Aminotransferase 11 U/L (0-31); Albumin Level 3.7 g/dL (3.5-5.0); Alkaline Phosphatase 176 U/L (39-117); Anion Gap 17 (12-20); Aspartate Amino Transferase 12 U/L (5-31); Bilirubin Direct < 0.2 mg/dL (0.0-0.5); Bilirubin Total 0.3 mg/dL (0.0-1.0); Blood Urea Nitrogen 43 mg/dL (9-16); Calcium 8.3 mg/dL (8.4-10.2); Carbon Dioxide 18 mmol/L (22-29); Chloride 106 mmol/L (96-108); Creatinine Clr Calc Pharmacy 24.2; Estimated Glomerular Filt Rate 16; Glucose Random 291 mg/dL (60-115); Lipase 22 U/L (8-78); Sodium 137 mmol/L (135-145); Total Protein 6.3 g/dL (6.5-8.0)
[2022-05-05 08:52] LABS: Appearance Urine CLEAR; Color Urine YELLOW; Glucose Urine UA NEG (NEG); Leukocyte Esterase Urine TRACE (NEG); Nitrite Urine NEG (NEG); UACC Culture Trigger NO; Urine Blood 1+ (NEG); Urine Ketones NEG (NEG); Urine Protein NEG (NEG-TRACE)
[2022-05-05 09:00] LABS: Bacteria Urine 1+ /LPF; RBC Urine 0-2 /HPF (0); Squamous Epithelial Cell Urine TRACE /LPF
[2022-05-05 09:33] VITALS: BP 159/77; PULSE 69; RESP 18; TEMP 36.4; O2SAT 99
[2022-05-05] MEDS: oxyCODONE HCl Immed Release 5 MG TABLET 10 MG PO (09:36)
--- NOTE | 2022-05-05 09:37 | PC.NURSE ---
Addendum entered by Caryn Hodge LPN 05/05/22 11:39: PATIENT A/O X4 . PEARRLA. HEART BEAT REGULA AT 74 BEATS . LUNGS CLEAR . SKIN PINK WARM AND DRY . ABDOMEN SOFT , NON DISTENDED AND NON TENDER . PATENT C/O PAIN IN RIGHT FLANK AREA . PATIENT HAS HAD LABS AND URINE SENT TO LAB . PATIENT HAS BEEN TO XRAY . PAIN LEVEL 10/10 , MEDICATED ORDERED , WILL REASSESS. PATIENT AWARE OF PLAN OF CARE. Original Note: PATIENT A/O X4 . PEARRLA . HEART BEAT REGULAR AT 74 BEATS .LUNGS CLEAR . SKIN PINK WARM AND DRY . ABDOMEN SOFT , NON DISTENDED AND NON TENDER . PATIENT C/O PAIN IN FLANK AREA . PATIENT HAS HAD LABS AND URINE SENT TO LAB . PATIENT HAS BEEN TO XRAY . PAIN LEVEL OF 10/ 10 , MEDICATED ORDERED WILL REASSESS .PATIENT AWARE OF PLAN OF CARE .
[2022-05-05] MEDS: 0.9 % Sodium Chloride 1,000 ML 999 ML IVCONT ×2 (10:20→10:55)
[2022-05-05 12:18] VITALS: BP 149/80; PULSE 66; RESP 18; TEMP 36.4; O2SAT 98
[2022-05-05 12:22] VITALS: RESP 18
[2022-05-05] MEDS: HYDROmorphone HCl 0.5 MG/0.5 ML SYRINGE IVPUSH (12:22)
--- NOTE | 2022-05-05 12:54 | PC.NURSE ---
cxr done at bedside.
[2022-05-05 14:02] LABS: Anion Gap 14 (12-20); Blood Urea Nitrogen 37 mg/dL (9-16); Carbon Dioxide 22 mmol/L (22-29); Chloride 107 mmol/L (96-108); Creatinine Clr Calc Pharmacy 27.7; Estimated Glomerular Filt Rate 19; Glucose Random 96 mg/dL (60-115); Potassium 4.2 mmol/L (3.3-5.1); Sodium 139 mmol/L (135-145)
[2022-05-05 14:29] VITALS: BP 150/75; PULSE 81; RESP 12; TEMP 37.1; O2SAT 99
== END 2022-05-05 15:18 | disposition home or self-care (01) ==
PROVIDERS: Emergency Provider Emergency Medicine
DX: R10.9 Unspecified abdominal pain (principal); N17.9 Acute kidney failure, unspecified; R07.89 Other chest pain; Z79.899 Other long term (current) drug therapy
CPT/HCPCS: 36415; 36556; 71045; 74176; 80048; 80076; 81001; 83690; 85027; 96361; 96374; 99284; J1170

== ENCOUNTER 2022-06-16 10:01 | Emergency (ER) | payer OTHER, SELFPAY ==
--- NOTE | ~2022-06-16 | XR_ITS ---
EXAMINATION: XR ANKLE, LEFT CLINICAL INFORMATION: Pain COMPARISON: None TECHNIQUE: AP, lateral, and mortise views of the left ankle. FINDINGS: There is cortical irregularity along the inferior aspect of the medial malleolus with associated soft tissue swelling seen on the mortise view, this is not well evaluated on the additional views. The ankle mortise is intact. No joint effusion. Bulky Achilles enthesophyte. Degenerative changes in the midfoot. XR/XR ankle LT min 3V IMPRESSION: There is cortical irregularity on the mortise view in the tip of the medial malleolus suggesting avulsion fracture. There is associated soft tissue swelling, correlate with physical exam.
--- NOTE | ~2022-06-16 | CT_ITS ---
EXAMINATION: CT ABDOMEN AND PELVIS WITHOUT CONTRAST CLINICAL INFORMATION: Left lower quadrant pain COMPARISON: 05/05/2022 TECHNIQUE: Multidetector volumetric imaging was performed from the lung bases through the pubic symphysis. Sagittal and coronal reformatted images were obtained on the technologist workstation. This CT examination was performed using dose optimization techniques as appropriate, variously including the following: *Automated exposure control *Adjustment of mA and/or kV according to patient size (this includes techniques or standardized protocols for targeted exams where dose is matched to indication/reason for exam; i.e. extremities or head) *Use of iterative reconstruction technique FINDINGS: The lack of intravenous contrast limits evaluation of the solid visceral organs including the liver, spleen, pancreas, and kidneys. LUNG BASES: Lung bases are clear. Partially imaged pacer wires. Normal heart size. LIVER, GALLBLADDER, AND BILIARY TREE: Limited non-contrast evaluation is normal. No gross focal hepatic lesion. Normal liver size and contour. No gross biliary ductal dilation. Gallbladder surgically absent. No biliary ductal dilatation. PANCREAS: Limited non-contrast evaluation is normal. No connor-pancreatic fluid. SPLEEN: Limited non-contrast evaluation is normal. ADRENAL GLANDS: 2.3 cm fat density right adrenal myelolipoma again seen; no imaging follow-up recommended. Normal left adrenal gland. KIDNEYS AND URETERS: There is a horseshoe configuration of the kidneys with a small thin 2 mm isthmus. There are nonobstructing calculi bilaterally. The largest on the right measure 4-5 mm. There is a multifaceted staghorn calculus of the left kidney measuring 2.5 x 1.3 cm. Stone to skin distance 12.7 cm. Density 752 Hounsfield units. No hydronephrosis or hydroureter seen however. GASTROINTESTINAL TRACT: There are postoperative changes of the stomach consistent with prior Trisha-en-Y gastric bypass. Small bowel is nondilated. There is a large volume stool throughout the tortuous colon. The volume of stool is increased from the prior study. Numerous diverticula are present. No evidence of colitis or diverticulitis. No CT findings to suggest appendicitis. Surgical sutures are seen across the rectosigmoid colon. ABDOMINAL WALL: There is diastases of the rectus abdominis with broad herniation of fat and segments of small bowel at the level of the umbilicus. LYMPH NODES: No pathologically enlarged lymph nodes in the abdomen or pelvis. VASCULAR: Normal caliber abdominal aorta. BLADDER: Unremarkable. PELVIC VISCERA: Uterus not seen likely surgically absent. OSSEOUS STRUCTURES: Superior endplate compression deformities of L3 and L4 are similar to the prior study. Multilevel degenerative changes. CT/CT abdomen pelvis wo con IMPRESSION: No acute CT findings. Again seen is a large volume stool throughout the tortuous colon, further increased from the prior study. Constipation could give this appearance. No abnormal wall thickening to suggest proctitis or stercoral colitis. Diverticulosis without evidence of acute diverticulitis. 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
[2022-06-16 10:10] VITALS: BP 148/84; PULSE 84; O2SAT 97
[2022-06-16 14:49] VITALS: BP 154/99; PULSE 82; RESP 18; TEMP 37.2; O2SAT 98; BMI 32.2
[2022-06-16 15:27] VITALS: BP 145/70; PULSE 71; RESP 15; TEMP 36.6; O2SAT 99
--- NOTE | 2022-06-16 16:04 | ED_ITS ---
HPI - Abdominal Pain General Chief Complaint: Abdominal Pain Stated Complaint: abdominal pain Time Seen by Provider: 06/16/22 15:26 History of Present Illness HPI narrative: Patient complains of left groin/lower abdomen pain starting yesterday and waxing and waning was worse this morning in then has decreased without any treatment, there is no so seated nausea or vomiting there is no diarrhea there is no blood in the stool She does feel like she sometimes has a bulge there similar to prior hernias She also complains of some pain and swelling around the outside of the left ankle for several days with no known injury Related Data Home Medications Medication Instructions Recorded Confirmed alprazolam 1 mg tablet 0.5 - 1 tab PO DAILY PRN Anxiety 04/13/21 04/23/22 melatonin 5 mg capsule 1 cap PO BEDTIME 04/13/21 04/23/22 venlafaxine 150 mg 1 cap PO DAILY 04/13/21 04/23/22 capsule,extended release 24 hr zolpidem 10 mg tablet 0.5 - 1 tab PO BEDTIME PRN insomnia 04/13/21 04/23/22 amitriptyline 25 mg tablet 1 - 2 tab PO BEDTIME PRN Insomnia 04/23/22 04/23/22 atorvastatin 20 mg tablet 1 tab PO DAILY 04/23/22 04/23/22 levetiracetam 1,000 mg tablet 1 tab PO BID 04/23/22 04/23/22 potassium citrate 10 mEq (1,080 1 tab PO TID 04/23/22 04/23/22 mg) tablet,extended release sucralfate 100 mg/mL oral 10 ml PO QID 04/23/22 04/23/22 suspension tizanidine 4 mg tablet 4 mg PO BID 04/23/22 04/23/22 Previous Rx's Medication Instructions Recorded acetaminophen 650 mg 650 mg PO Q8H PRN back pain #60 04/16/21 tablet,extended release tabs ondansetron 4 mg disintegrating 4 mg PO Q8H PRN nausea and 09/23/21 tablet vomiting #10 tabs pantoprazole 40 mg tablet,delayed 40 mg PO DAILY #30 tabs 09/24/21 release doxycycline hyclate 100 mg tablet 100 mg PO BID #20 tabs 04/24/22 midodrine 10 mg tablet 10 mg PO TID #90 tabs 04/24/22 oxycodone 5 mg tablet 5 mg PO Q6H PRN pain #15 tabs 04/24/22 oxycodone 5 mg capsule 5 mg PO Q8H PRN pain #12 caps 05/05/22 acetaminophen 325 mg tablet 650 mg PO Q6H PRN pain #30 tabs 06/16/22 cephalexin 250 mg tablet 250 mg PO TID 5 days #15 tabs 06/16/22 docusate sodium 100 mg capsule 100 mg PO BID PRN Stool softener 06/16/22 (Colace) #20 caps oxycodone 5 mg tablet 5 mg PO Q6H PRN pain #10 tabs 06/16/22 Allergies Allergy/AdvReac Type Severity Reaction Status Date / Time egg [EGGS] AdvReac Intermediate NAUSEA/VOMI Verified 09/26/20 17:45 TING sumatriptan [From IMITREX] AdvReac Intermediate HEART Verified 09/26/20 17:45 PALPITATIONS Ibuprofen Allergy Unknown Unknown Uncoded 09/01/20 14:56 Review of Systems Review of Systems Positive for left lower quadrant and groin pain as well as left ankle pain Negatives are no fever no chills no dizziness no weakness no fainting no feeling faint no headache no neck pain no chest pain no shortness of breath no nausea vomiting or diarrhea no blood in the stool no dysuria no frequency no no changes to bowel or bladder, no anorexia Yes all other systems are reviewed and are negative [facility] Past Medical History [facility] Narrative: Patient has history of gastric bypass, cholecystectomy and appendectomy Source: nursing notes reviewed Medical History Anastomotic ulcer S/P gastric bypass Anemia Anxiety Back pain Brain lesion Depression Diabetes Diverticulitis DVT of right axillary vein, acute Endometrial cancer Hypotension Pacemaker (~2015) Pulmonary embolus, left (~04/2020) Renal stones Seizure disorder Status post extracorporeal shock wave therapy Surgical History H/O tooth extraction History of esophagogastroduodenoscopy (~06/2020) History of Trisha-en-Y gastric bypass (~10/2019) History of sleeve gastrectomy (~2014) Hx laparoscopic cholecystectomy Hx of appendectomy Hx of hernia repair S/P CELESTINO (total abdominal hysterectomy) Family History Family History Father No problems noted. Mother Diabetes Chronic mental illness Father No problems noted. Mother No problems noted. Social History Social History Household Members: None and Unknown / Unable to assess Housing: Unknown / Unable to assess Do you presently have visiting nurse or other home services: No Unable to assess alcohol history related to: Unable to respond Alcohol intake: current Alcohol intake frequency: 0-2 drinks per day Second Hand Smoke Exposure: No Substance Use Type: Marijuana, Opiates and Prescription Drugs Advance Directives: Yes Advance Directives on File: Yes Advance Directives Date on File: 04/23/22 service: No Current occupational status: disabled Physical Exam ED Vital Signs: Vital Signs - 24 hr 06/16/22 14:49 06/16/22 15:27 06/16/22 16:38 Temperature 98.9 F 97.9 F Pulse Rate 82 71 Respiratory Rate 18 15 16 Blood Pressure 154/99 H 145/70 H Pulse Oximetry 98 99 Oxygen Delivery Method Room Air Room Air BMI result Body Mass Index 32.2 General appearance is no acute distress The eyes anicteric no pallor The pharynx no redness swelling or exudate, membranes are moist Neck is supple Chest clear to auscultation bilateral no respiratory distress The abdomen had left low abdominal tenderness, no rebound no guarding there was no other tenderness no upper abdominal tenderness On having the patient stand up and cough I thought I did feel a bulge consistent with a reducible hernia, but body habitus made it difficult to be certain The back no CVA tenderness Extremities the left ankle had lateral malleolus swelling, it had a full range of motion the color was normal there is no redness warmth or wound, patient could bear weight but with a limp, neurovascular intact distal Neuro no focal motor sensory deficits Course Course Course Narrative: ER course and ankle x-ray of the left ankle showed a possible avulsion fracture of the medial malleolus but there was no tenderness at the medial malleolus, all tenderness is lateral malleolus of left ankle, patient did say she has had several minor trips tripping over her dog and she could have twisted her ankle in recent days so it is likely a sprained left ankle CT scan with no acute findings no emergent findings but there was evidence of constipation Urinalysis did show 2+ leukocyte esterase with 21-50 white cells so patient is treated for UTI with Keflex BUN and creatinine were 19 BUN and 1.46 creatinine Patient remained comfortable after a dose of morphine, and was discharged MDM - Abdominal Pain Lab Data Attestation: I reviewed the patient's lab results. Result diagrams: 06/16/22 17:03 06/16/22 17:03 Labs: Lab Results 06/16/22 06/16/22 06/16/22 Range/Units 16:42 16:42 17:03 WBC 7.0 (4.8-10.8) X10*3/uL RBC 4.74 (4.20-5.50) X10*6/uL Hgb 12.7 (12.0-16.0) g/dl Hct 39.7 (37.0-47.0) % MCV 83.8 (80.0-98.0) fL MCH 26.8 L (27.0-33.0) pg MCHC 32.0 (31.0-35.0) g/dl RDW 17.2 H (11.0-16.0) % Plt Count 307 (160-400) X10*3/uL MPV 9.5 (9.4-12.3) fL Immature Gran % (Auto) 0.6 H (0.0-0.4) % Neut % (Auto) 74.7 H (45-73) % Lymph % (Auto) 15.1 L (20-40) % [place] % (Auto) 6.0 (2-11) % Eos % (Auto) 3.0 (0-4) % Baso % (Auto) 0.6 (0-2) % Lymph # (Auto) 1.1 L (1.2-4.9) X10*3/uL [place] # (Auto) 0.4 (0.1-1.2) X10*3/uL Eos # (Auto) 0.2 (0.0-0.4) X10*3/uL Baso # (Auto) 0.0 (0.0-0.2) X10*3/uL Abs Immat Gran (auto) 0.04 H (0.00-0.03) X10*3/uL Absolute Neuts (auto) 5.2 (2.0-8.3) x10*3/uL Absolute Nucleated RBC 0.000 (0.0-0.012) X10*3/uL Nucleated RBC % (auto) 0.0 (0.0-0.2) /100WBC Sodium (135-145) mmol/L Potassium (3.3-5.1) mmol/L Chloride (96-108) mmol/L Carbon Dioxide (22-29) mmol/L Anion Gap (12-20) BUN (9-16) mg/dL Creatinine (0.5-1.4) mg/dL Estim Creat Clear Calc Estimated GFR Random Glucose (60-115) mg/dL Calcium (8.4-10.2) mg/dL Total Bilirubin (0.0-1.0) mg/dL Direct Bilirubin (0.0-0.5) mg/dL AST (5-31) U/L ALT (0-31) U/L Alkaline Phosphatase (39-117) U/L Total Protein (6.5-8.0) g/dL Albumin (3.5-5.0) g/dL Lipase (8-78) U/L Urine Color Yellow Urine Appearance Clear Urine pH 5.5 (5.0-8.0) Ur Specific [place] 1.015 (1.005-1.025) Urine Protein Negative (Neg-Trace) mg/dL Urine Glucose (UA) Negative (Negative) mg/dL Urine Ketones Negative (Negative) mg/dL Urine Blood Negative (Negative) Urine Nitrite Negative (Negative) Ur Leukocyte Esterase Moderate (2+) H (Negative) Urine RBC 0-2 (0-2) /HPF Urine WBC 21-50 H (0-5) /HPF Ur Squamous Epith Cells 6-10 (0-2) /HPF Urine Bacteria 1+ (None Seen) Hyaline Casts 0-2 (0-2) /LPF Urine Test NEGATIVE (NEGATIVE) 06/16/22 Range/Units 17:03 WBC (4.8-10.8) X10*3/uL RBC (4.20-5.50) X10*6/uL Hgb (12.0-16.0) g/dl Hct (37.0-47.0) % MCV (80.0-98.0) fL MCH (27.0-33.0) pg MCHC (31.0-35.0) g/dl RDW (11.0-16.0) % Plt Count (160-400) X10*3/uL MPV (9.4-12.3) fL Immature Gran % (Auto) (0.0-0.4) % Neut % (Auto) (45-73) % Lymph % (Auto) (20-40) % [place] % (Auto) (2-11) % Eos % (Auto) (0-4) % Baso % (Auto) (0-2) % Lymph # (Auto) (1.2-4.9) X10*3/uL [place] # (Auto) (0.1-1.2) X10*3/uL Eos # (Auto) (0.0-0.4) X10*3/uL Baso # (Auto) (0.0-0.2) X10*3/uL Abs Immat Gran (auto) (0.00-0.03) X10*3/uL Absolute Neuts (auto) (2.0-8.3) x10*3/uL Absolute Nucleated RBC (0.0-0.012) X10*3/uL Nucleated RBC % (auto) (0.0-0.2) /100WBC Sodium 142 (135-145) mmol/L Potassium 4.5 (3.3-5.1) mmol/L Chloride 103 (96-108) mmol/L Carbon Dioxide 26 (22-29) mmol/L Anion Gap 18 (12-20) BUN 19 H (9-16) mg/dL Creatinine 1.46 H (0.5-1.4) mg/dL Estim Creat Clear Calc 52.9 Estimated GFR 38 Random Glucose 107 (60-115) mg/dL Calcium 9.2 D (8.4-10.2) mg/dL Total Bilirubin 0.4 (0.0-1.0) mg/dL Direct Bilirubin 0.2 (0.0-0.5) mg/dL AST 19 D (5-31) U/L ALT 16 (0-31) U/L Alkaline Phosphatase 190 H (39-117) U/L Total Protein 7.0 (6.5-8.0) g/dL Albumin 4.0 (3.5-5.0) g/dL Lipase 19 (8-78) U/L Urine Color Urine Appearance Urine pH (5.0-8.0) Ur Specific [place] (1.005-1.025) Urine Protein (Neg-Trace) mg/dL Urine Glucose (UA) (Negative) mg/dL Urine Ketones (Negative) mg/dL Urine Blood (Negative) Urine Nitrite (Negative) Ur Leukocyte Esterase (Negative) Urine RBC (0-2) /HPF Urine WBC (0-5) /HPF Ur Squamous Epith Cells (0-2) /HPF Urine Bacteria (None Seen) Hyaline Casts (0-2) /LPF Urine Test (NEGATIVE) Discharge Plan Discharge Clinical Impression: Abdominal pain, Hernia, UTI (urinary tract infection) Patient Disposition: Home, Self-Care Additional Instructions: CT scan did not show any emergent conditions, but it did show constipation You can use Colace stool softener, or if needed Ducolax suppository available [id number] I thought I did feel a reducible hernia in left lower abdomen so follow with surgeon for further evaluation You can use Tylenol and oxycodone if needed for pain Return any time for worsening pain change location of pain vomiting fever any worse condition or any concerns Urinalysis did show some evidence of infection, so take antibiotic keflex as d irected Follow with surgeon for evaluation of possible hernia, 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 docusate sodium [Colace] 100 mg capsule 100 mg PO BID PRN (Reason: Stool softener) Qty: 20 0RF cephalexin 250 mg tablet 250 mg PO TID 5 Days Qty: 15 0RF No Action pantoprazole 40 mg tablet,delayed release (DR/EC) 40 mg PO DAILY Qty: 30 3RF alprazolam 1 mg tablet 0.5 - 1 tab PO DAILY PRN (Reason: Anxiety) venlafaxine 150 mg capsule,extended release 24hr 1 cap PO DAILY zolpidem 10 mg tablet 0.5 - 1 tab PO BEDTIME PRN (Reason: insomnia) melatonin 5 mg capsule 1 cap PO BEDTIME acetaminophen 650 mg tablet extended release 650 mg PO Q8H PRN (Reason: back pain) Qty: 60 0RF oxycodone 5 mg capsule 5 mg PO Q8H PRN (Reason: pain) Qty: 12 0RF Rx Instructions: Partial Fill upon patient request. ondansetron 4 mg tablet,disintegrating 4 mg PO Q8H PRN (Reason: nausea and vomiting) Qty: 10 0RF potassium citrate 10 mEq (1,080 mg) tablet extended release 1 tab PO TID tizanidine 4 mg tablet 4 mg PO BID atorvastatin 20 mg tablet 1 tab PO DAILY sucralfate 100 mg/mL suspension 10 ml PO QID amitriptyline 25 mg tablet 1 - 2 tab PO BEDTIME PRN (Reason: Insomnia) levetiracetam 1,000 mg tablet 1 tab PO BID midodrine 10 mg Tablet 10 mg PO TID Qty: 90 0RF doxycycline hyclate 100 mg tablet 100 mg PO BID Qty: 20 0RF oxycodone 5 mg tablet 5 mg PO Q6H PRN (Reason: pain) Qty: 15 0RF Rx Instructions: Partial Fill upon patient request. Referrals: Chandana Aponte MD [Physician] - (Left ankle sprain/avulsion fracture) Leon Spear MD [Physician] - (Possible left-sided reducible hernia)
[2022-06-16 16:38] VITALS: RESP 16
[2022-06-16] MEDS: Morphine Sulfate 10 MG/ML CARTRIDGE 6 MG SUBCUT (16:38)
[2022-06-16 16:52] LABS: Appearance Urine Clear; Color Urine Yellow; Glucose Urine UA Negative (Negative); Leukocyte Esterase Urine Moderate (2+) (Negative); Nitrite Urine Negative (Negative); PH 5.5 (5.0-8.0); Specific Gravity - Urine 1.015 (1.005-1.025); Urine Blood Negative (Negative); Urine Ketones Negative (Negative); Urine Protein Negative (Neg-Trace)
[2022-06-16 16:53] LABS: UPreg QC Valid YES; Urine Pregnancy NEGATIVE (NEGATIVE)
[2022-06-16 16:57] LABS: Bacteria Urine 1+ (None Seen); Hyaline Casts Urine 0-2 /LPF (0-2); RBC Urine 0-2 /HPF (0-2); UACC Culture Trigger YES; WBC Urine 21-50 /HPF (0-5)
[2022-06-16 17:08] LABS: MANUAL DIFF FLAG NO
[2022-06-16 17:15] LABS: Basophils Percent Auto 0.6 % (0-2); Eosinophils Absolute Auto 0.2 X10*3/uL (0.0-0.4); Hematocrit 39.7 % (37.0-47.0); Hemoglobin 12.7 g/dl (12.0-16.0); Imm Gran Abs Auto 0.04 X10*3/uL (0.00-0.03); Imm Gran Pct Auto 0.6 % (0.0-0.4); Lymphocytes Absolute Auto 1.1 X10*3/uL (1.2-4.9); Lymphocytes Percent Auto 15.1 % (20-40); Mean Corpuscular Hemoglobin 26.8 pg (27.0-33.0); Mean Corpuscular Volume 83.8 fL (80.0-98.0); Mean Platelet Volume 9.5 fL (9.4-12.3); Monocytes Absolute Auto 0.4 X10*3/uL (0.1-1.2); Neutrophils Absolute Auto 5.2 x10*3/uL (2.0-8.3); Neutrophils Percent Auto 74.7 % (45-73); Platelet Count 307 X10*3/uL (160-400); Red Blood Count 4.74 X10*6/uL (4.20-5.50); Red Cell Distribution Width 17.2 % (11.0-16.0)
[2022-06-16 17:28] LABS: Alanine Aminotransferase 16 U/L (0-31); Alkaline Phosphatase 190 U/L (39-117); Anion Gap 18 (12-20); Aspartate Amino Transferase 19 U/L (5-31); Bilirubin Direct 0.2 mg/dL (0.0-0.5); Bilirubin Total 0.4 mg/dL (0.0-1.0); Blood Urea Nitrogen 19 mg/dL (9-16); Calcium 9.2 mg/dL (8.4-10.2); Carbon Dioxide 26 mmol/L (22-29); Chloride 103 mmol/L (96-108); Creatinine Clr Calc Pharmacy 52.9; Estimated Glomerular Filt Rate 38; Glucose Random 107 mg/dL (60-115); Lipase 19 U/L (8-78); Potassium 4.5 mmol/L (3.3-5.1); Sodium 142 mmol/L (135-145)
[2022-06-16 19:15] VITALS: BP 141/95; PULSE 80; RESP 16; TEMP 36.6; O2SAT 99
[2022-06-16] MEDS: cephALEXin 250 MG CAPSULE PO (19:19)
== END 2022-06-16 19:24 | disposition home or self-care (01) ==
PROVIDERS: Physician Assistant Medical; Emergency Provider Emergency Medicine; PCP Internal Medicine
DX: R10.32 Left lower quadrant pain (principal); K46.9 Unspecified abdominal hernia without obstruction or gangrene; N39.0 Urinary tract infection, site not specified; M25.572 Pain in left ankle and joints of left foot; K59.00 Constipation, unspecified; E11.9 Type 2 diabetes mellitus without complications; Z95.0 Presence of cardiac pacemaker; Z79.899 Other long term (current) drug therapy; Z79.02 Long term (current) use of antithrombotics/antiplatelets
CPT/HCPCS: 36415; 73610; 74176; 80048; 80076; 81001; 81025; 83690; 85025; 87086; 96374; 99283; 99284; J2270

== ENCOUNTER 2023-10-12 09:47 | Inpatient (IN) | payer OTHER, SELFPAY ==
[2023-10-12] VITALS (15 sets, daily range): BP systolic 101–145; BP diastolic 56–79; PULSE 68–110; RESP 16–28; TEMP 35.9–37.1; O2SAT 93–98; BMI 29.0; BMI 36.2
--- NOTE | ~2023-10-12 | CT_ITS ---
EXAMINATION: CT brain and CT cervical spine without contrast. CLINICAL INDICATIONS: Fall. COMPARISON: CT brain 09/23/2021 TECHNIQUE: 5 mm thin axial and reformatted 2 mm thin sagittal and coronal images of brain were obtained. Subsequently axial 3 mm thin and reformatted 2 mm thin sagittal and coronal images of cervical spine were obtained. DLP [id number]. This CT examination was performed using dose optimization technique as appropriate, variously including the following: Automated exposure control Adjustment of MA and/or KV according to patient size(this includes techniques or standardized protocols for targeted exams where dose is matched to indication/reason for exam; extremities or head. Use of iterative reconstruction techniques. FINDINGS: Brain: There is no acute intra-axial, extra-axial bleed, masses or midline shift. There is no acute infarction in evolution. No edema the garcia to white matter differentiation is maintained normal. The lateral ventricles are symmetrical in size and configuration without enlargement. Bone windows reveal no calvarial abnormality. Bilateral paranasal sinuses and mastoid air cells are well-aerated. There is no scalp soft tissue abnormality. Bilateral paranasal sinuses and mastoid air cells are well-aerated. Cervical spine: There is normal cervical lordosis. The vertebral heights, alignment and disc heights are normal. There is no visible acute fracture, dislocation or subluxation. There is mild ventral spondylosis C4-C5, C5-C6 and C6-C7 disc levels. The craniovertebral junction and the C1-C2 alignment is normal. No aggressive lytic or sclerotic process seen. The prevertebral and paravertebral soft tissues are normal. The airway is widely patent. There is a right apical parenchymal scarring/infiltrate and apical pleural thickening. The thyroid lobes are symmetrical but slightly enlarged and mildly heterogeneous CT/CT cervical spine wo IV con IMPRESSION: No acute intracranial process seen. There is no acute fracture or dislocation of cervical spine.
--- NOTE | ~2023-10-12 | CT_ITS ---
EXAMINATION: CT ABDOMEN AND PELVIS WITHOUT CONTRAST CLINICAL INFORMATION: Left lower quadrant pain COMPARISON: CT abdomen pelvis June 16, 2022 TECHNIQUE: Multidetector volumetric imaging was performed from the superior aspect of the liver through the pubic symphysis. Sagittal and coronal reformatted images were obtained on the technologist's workstation. This CT examination was performed using dose optimization techniques as appropriate, variously including the following: *Automated exposure control *Adjustment of mA and/or kV according to patient size (this includes techniques or standardized protocols for targeted exams where dose is matched to indication/reason for exam; i.e. extremities or head) *Use of iterative reconstruction technique DLP: 1205 mGy-cm FINDINGS: Visualized lung bases demonstrate mild dependent atelectasis. Pacemaker leads partially visualized. The liver is normal in size but demonstrates diffusely decreased attenuation. The gallbladder is surgically absent. The pancreas, spleen and adrenal glands are unremarkable. Horseshoe style kidney is. Renal calculi are noted bilaterally, more prominent within the left moiety. There is no hydronephrosis present. Similar postsurgical changes of the stomach consistent with gastric bypass. Normal caliber loops of small and large bowel. Anastomotic suture line noted within the sigmoid colon. Mild to moderate colonic diverticulosis without CT evidence to suggest active diverticulitis. A moderate stool burden is again noted throughout the majority the colon with a prominent stool burden again appreciated within the rectal vault. Normal appendix. Normal caliber abdominal aorta. Small foci of air are noted within the left common iliac vein, nonspecific. Possibly No retroperitoneal lymphadenopathy. The bladder is prominently distended but otherwise unremarkable. Uterus is surgically absent. No gross free pelvic fluid. No inguinal lymphadenopathy. Moderate diffuse degenerative changes of the spine. Chronic compression deformities of the L3 and L4 vertebral bodies. CT/CT abdomen pelvis wo IV con IMPRESSION: 1. Colonic diverticulosis without CT evidence to suggest active diverticulitis. 2. Moderate stool burden throughout the colon suggesting constipation. 3. Diffusely decreased liver attenuation suggesting hepatic steatosis. Correlation with liver enzymes recommended. 4. 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 No hydronephrosis. 5. Small foci of air are noted within the left common iliac vein. This is a nonspecific finding but may be related to recent venipuncture. Clinical correlation recommended. Fleischner guidelines were followed.
--- NOTE | ~2023-10-12 | XR_ITS ---
EXAMINATION: XR CHEST CLINICAL INFORMATION: Weakness. COMPARISON: Chest x-ray 05/05/2022 TECHNIQUE: Frontal view of the chest was obtained. FINDINGS: The lungs are hypoexpanded with patchy consolidation right upper lobe rest of lungs are clear. The heart size and pulmonary vascularity is normal. There are pacer electrodes in right atrium and right ventricle. No gross bony abnormality seen. XR/XR chest 1V IMPRESSION: Right upper lobe patchy consolidation. Is new since the last chest x-ray 05/05/2022.
--- NOTE | 2023-10-12 10:16 | ED_ITS ---
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 Patient recently went to [facility]. She has had issues with dizziness and lightheadedness since 2020. Per family, patient appears to be lethargic and dehydrated. Patient fell eat today and yesterday and overall feels generally weak. She is not on blood thinners. Patient is lethargic but answering questions appropriately. Patient febrile at 100.3 via EMS. During examination, patient states that she has had global weakness since yesterday. She states that this morning she was bending over to get a drink from her refrigerator when she felt dizzy and fell to the ground. She denies hitting her head but is unsure about any specifics regarding the fall. Patient lethargic appearing but is arousable, oriented x3 complaint: Weakness Onset (ago): day(s) Relieving factors: none Exacerbating factors: none Associated symptoms: denies other symptoms Related Data Home Medications Medication Instructions Recorded Confirmed alprazolam 1 mg tablet 1 tab PO DAILY PRN Anxiety 04/13/21 10/12/23 melatonin 5 mg capsule 1 cap PO BEDTIME 04/13/21 10/12/23 venlafaxine 150 mg 1 cap PO DAILY 04/13/21 10/12/23 capsule,extended release 24 hr zolpidem 10 mg tablet 1 tab PO BEDTIME insomnia 04/13/21 10/12/23 amitriptyline 25 mg tablet 2 tab PO BEDTIME Insomnia 04/23/22 10/12/23 atorvastatin 20 mg tablet 1 tab PO DAILY 04/23/22 10/12/23 sucralfate 100 mg/mL oral 10 ml PO QID 04/23/22 10/12/23 suspension levetiracetam 1,000 mg tablet 1,500 mg PO Q12H 10/12/23 10/12/23 midodrine 10 mg tablet 10 mg PO TID@0800,1300,1800 10/12/23 10/12/23 [id number] 45 mg-folic 1 cap PO DAILY 10/12/23 10/12/23 acid 800 mcg-vit K 120 mcg capsule (Bariatric Multivitamins) nystatin 100,000 unit/gram topical 1 appl topical DAILY PRN Rash 10/12/23 10/12/23 powder (Nystop) pantoprazole 40 mg tablet,delayed 40 mg PO DAILY@0630 10/12/23 10/12/23 release tizanidine 2 mg tablet 2 mg PO BID 10/12/23 10/12/23 Previous Rx's Medication Instructions Recorded acetaminophen 325 mg tablet 650 mg (2 x 325 mg) PO Q6H PRN 06/16/22 pain #30 tabs docusate sodium 100 mg capsule 100 mg PO BID PRN Stool softener 06/16/22 (Colace) #20 caps Allergies Allergy/AdvReac Type Severity Reaction Status Date / Time egg [EGGS] AdvReac Intermediate NAUSEA/VOMI Verified 09/26/20 17:45 TING sumatriptan [From IMITREX] AdvReac Intermediate HEART Verified 09/26/20 17:45 PALPITATIONS Ibuprofen Allergy Unknown Unknown Uncoded 09/01/20 14:56 Review of Systems 2 Review of Systems: Yes all other systems are reviewed and are negative Constitutional: Constitutional: Reports as per HPI [facility] Past Medical History Medical History Anastomotic ulcer S/P gastric bypass Anemia Anxiety Back pain Brain lesion Depression Diabetes Diverticulitis DVT of right axillary vein, acute Endometrial cancer Hypotension Pacemaker (~2015) Pulmonary embolus, left (~04/2020) Renal stones Seizure disorder Status post extracorporeal shock wave therapy Surgical History H/O tooth extraction History of esophagogastroduodenoscopy (~06/2020) History of Trisha-en-Y gastric bypass (~10/2019) History of sleeve gastrectomy (~2014) Hx laparoscopic cholecystectomy Hx of appendectomy Hx of hernia repair S/P CELESTINO (total abdominal hysterectomy) Family History Family History Father No problems noted. Mother Diabetes Chronic mental illness Father No problems noted. Mother No problems noted. Social History Social History Household Members: None and Unknown / Unable to assess Housing: Unknown / Unable to assess Do you presently have visiting nurse or other home services: No Unable to assess alcohol history related to: Unable to respond Alcohol intake: current Alcohol intake frequency: 0-2 drinks per day Comment: PATIENT STATES RECENT FALL REQUIRING GO E.R. S/P FALL Smoked in Last 30 Days: No Second Hand Smoke Exposure: No Use of substances other than those prescribed or required for medical reasons: Yes Substance Use Type: Marijuana, Opiates and Prescription Drugs Substance Use Frequency: Occasionally Advance Directives: Yes Advance Directives on File: Yes Advance Directives Date on File: 04/23/22 service: No Current occupational status: disabled Physical Exam ED Vital Signs: Vital Signs - 24 hr 10/12/23 10:10 10/12/23 10:17 10/12/23 11:33 Temperature 98.7 F 98.7 F 98.8 F Pulse Rate 105 H 107 H 91 Respiratory Rate 28 H 28 H 24 H Blood Pressure 117/71 117/71 119/66 Pulse Oximetry 93 93 94 Oxygen Delivery Method Room Air Room Air Room Air 10/12/23 13:50 10/12/23 14:48 10/12/23 14:48 Temperature Pulse Rate 79 76 82 Respiratory Rate 24 H Blood Pressure 101/56 L 116/70 120/73 Pulse Oximetry 95 Oxygen Delivery Method Room Air 10/12/23 14:49 10/12/23 16:20 Temperature 97.6 F Pulse Rate 89 79 Respiratory Rate 20 Blood Pressure 101/72 114/63 Pulse Oximetry 95 Oxygen Delivery Method Room Air BMI result Body Mass Index 29.0 Const General: cooperative, comfortable, no acute distress, lethargic and tired appearing Orientation/consciousness: patient oriented x3 and lethargic Limitations: no limitations HENMT Head: Yes normal to inspection, Yes normocephalic and Yes atraumatic Ears: hearing grossly normal bilaterally General nose exam: Normal external nose present Face and sinus: Yes normal facial exam Mouth: Normal oral and palatal mucosa present, oropharynx normal and moist mucous membranes Throat: Yes posterior oropharynx normal Eyes General: appearance normal, both eyes and all related structures Eyelids: Yes eyelids normal Conjunctivae: conjunctivae normal Sclerae: sclerae normal Pupils: Equal, round and reactive pupils present EOM: EOMs intact bilaterally Neck Neck: Yes normal visual inspection, Yes full ROM and Yes no lymphadenopathy Lymphatic: no lymphadenopathy noted Chest Chest palpation & inspection: normal inspection of the chest Resp Other: Coarse lung sounds auscultated in right upper lung field Effort & Inspection: normal respiratory effort and able to speak in complete sentences Auscultation: clear to auscultation bilaterally, no crackles, no rales, no rhonchi and no wheezes Cardio Rate: regular rate Rhythm: regular rhythm Heart sounds: S1 normal heart sound present and S2 normal heart sound present GI Other: Abdomen is soft, with tenderness palpation in the left lower quadrant, no rebound or guarding. Inspection: Yes normal to inspection Skin General skin exam: no rashes or lesions noted Trauma: no lacerations or abrasions Wounds: no wounds Neuro General: patient oriented x3, moves all extremities and Unable to assess gait Cranial nerves: Yes Equal, round and reactive pupils present Cognition (Neuro): normal cognition Gait exam (Neuro): Unable to assess gait Extrem General: Yes normal to inspection Right upper extremity: normal to inspection Left upper extremity: normal to inspection Right lower extremity: normal to inspection Left lower extremity: normal to inspection NIH Stroke Scale Level of Consciousness: Not Alert; but arousable by minor stimulation Level of Consciousness Questions: Answers both questions correctly Level of Consciousness Commands: Performs both tasks correctly Best Gaze: Normal Visual: No visual loss Facial Palsy: Normal Motor Arm (Right): No drift Motor Arm (Left): No drift Motor Leg (Right): No drift Motor Leg (Left): No drift Limb Ataxia: Absent Sensory: Normal Best Language: Mild to moderate aphasia Dysarthia: Normal Extinction and Inattention: No abnormality Score: 2 Course Reevaluation(s) Reevaluation #1: CT head and CT cervical spine with no acute intracranial process seen or acute fracture dislocation. Abdomen and pelvis CT as well as chest x-ray still pending at this time. Patient tested positive for COVID. She states that she did test positive for COVID last week. Cervical collar was removed. Time: 12:23 Reevaluation #2: Chest x-ray revealing a right upper lobe patchy consolidation which is new. This is consistent with a right upper lobe pneumonia. UA is still pending. Time: 13:06 Reevaluation #3: Discussed case with attending physician, Dr. Brice. Transfer of care initiated. Time: 15:11 Medications Administered Discontinued Medications Generic Name Dose Route Start Last Admin Trade Name Alejandro PRN Reason Stop Dose Admin Sodium Chloride 1,779 mls @ 1,779 mls/hr 10/12/23 10:20 10/12/23 11:49 Ns IV 10/12/23 11:19 Infused .Q1H STA Infusion Ceftriaxone Sodium 1 gm/ 50 mls @ 100 mls/hr 10/12/23 14:07 10/12/23 14:50 Sodium Chloride IV 10/12/23 14:36 Infused ONCE ONE Infusion Azithromycin 500 mg/ Sodium 250 mls @ 125 mls/hr 10/12/23 14:07 10/12/23 14:57 Chloride IV 10/12/23 16:06 125 mls/hr ONCE ONE Administration Medical Decision Making Medical Decision Making [facility] Narrative: This is a 53-year-old female presenting to the emergency department for evaluation of weakness since yesterday. On arrival, patient lethargic however is arousable. She feels warm to the touch however temperature 98.7? orally. Oxygen saturation 93% on room air. Patient did have a fall early this morning. Unsure of head strike. She is not on anticoagulants. Given tachycardia, increased respirations, as well as lethargy, will administer IV fluids. She is also experiencing some abdominal pain, low abdomen is soft, with tenderness to palpation in the left lower quadrant. No rebound or guarding. Differential Diagnosis Differential Diagnoses: The differential diagnosis associated with the presentation includes Pneumonia, UTI, ICH, subdural hematoma, COVID, flu Admission/Observation Consideration of admission/observation: Escalation of care including admission/observation considered Patient requiring hospital admission observation given profound weakness and lethargy Lab Data [facility] Lab Attestation statement: I reviewed the patient's lab results. Leukocytosis at 14.2, with a left shift, creatinine 1.81 this appears to be her baseline, BUN 23, alk-phos 164 - history of elevated alk phosphatase. Flat troponin x2. UA negative for infection. Positive COVID. 10/12/23 10:37 10/12/23 10:37 Labs: Lab Results 10/12/23 10/12/23 10/12/23 Range/Units 10:37 10:55 13:18 WBC 14.2 H (4.8-10.8) X10*3/uL RBC 4.34 (4.20-5.50) X10*6/uL Hgb 11.1 L (12.0-16.0) g/dl Hct 34.5 L (37.0-47.0) % MCV 79.5 L (80.0-98.0) fL MCH 25.6 L (27.0-33.0) pg MCHC 32.2 (31.0-35.0) g/dl RDW 13.9 (11.0-16.0) % Plt Count 278 (160-400) X10*3/uL MPV 9.1 L (9.4-12.3) fL Immature Gran % (Auto) Cancelled Neut % (Auto) Cancelled Lymph % (Auto) Cancelled Fallon % (Auto) Cancelled Eos % (Auto) Cancelled Baso % (Auto) Cancelled Lymph # (Auto) Cancelled Fallon # (Auto) Cancelled Eos # (Auto) Cancelled Baso # (Auto) Cancelled Abs Immat Gran (auto) Cancelled Absolute Neuts (auto) Cancelled Absolute Nucleated RBC 0.000 (0.0-0.012) X10*3/uL Nucleated RBC % (auto) 0.0 (0.0-0.2) /100WBC Neutrophils % (Manual) 85 H (45-73) % Band Neutrophils % 3 (3-5) % Lymphocytes % (Manual) 5 L (20-40) % Monocytes % (Manual) 7 (2-11) % Abs Neuts (Manual) 12.5 H (2.0-8.3) X10*3/uL Lymphocytes # (Manual) 0.7 L (1.2-4.9) X10*3/uL Monocytes # (Manual) 1.0 (0.1-1.2) X10*3/uL Toxic Vacuolation PRESENT Platelet Estimate NORMAL (NORMAL) Plt Morphology Comment NORMAL RBC Morphology NORMAL Sodium 139 (135-145) mmol/L Potassium 4.5 (3.3-5.1) mmol/L Chloride 108 (96-108) mmol/L Carbon Dioxide 19 L (22-29) mmol/L Anion Gap 17 (12-20) BUN 23 H (9-16) mg/dL Creatinine 1.81 H (0.5-1.4) mg/dL Estim Creat Clear Calc 38.3 Estimated GFR 29 Random Glucose 121 H (60-115) mg/dL Lactic Acid 1.0 (0.5-2.0) mmol/L Calcium 8.6 D (8.4-10.2) mg/dL Magnesium 1.8 (1.6-2.6) mg/dL Total Bilirubin 0.4 (0.0-1.0) mg/dL Direct Bilirubin 0.1 (0.0-0.5) mg/dL AST 18 (5-31) U/L ALT 11 (0-31) U/L Alkaline Phosphatase 164 H (39-117) U/L Troponin I High Sens 11.7 (<3.5-17.0) ng/L Total Protein 7.3 (6.5-8.0) g/dL Albumin 3.9 (3.5-5.0) g/dL Urine Color Yellow Urine Appearance Clear Urine pH 5.5 (5.0-9.0) Ur Specific Lenora 1.010 (1.005-1.025) Urine Protein Negative (Neg-Trace) mg/dL Urine Glucose (UA) Negative (Negative) mg/dL Urine Ketones Negative (Negative) mg/dL Urine Blood Negative (Negative) Urine Nitrite Negative (Negative) Ur Leukocyte Esterase Negative (Negative) Urine Opiates Screen Not Detected (Not Detect) Urine Fentanyl Screen Not Detected (Not Detect) Ur Barbiturates Screen Not Detected (Not Detect) Ur Phencyclidine Scrn Not Detected (Not Detect) Ur Amphetamines Screen Not Detected (Not Detect) U Benzodiazepines Scrn POSITIVE H (Not Detect) Urine Cocaine Screen Not Detected (Not Detect) U Marijuana (THC) Screen Not Detected (Not Detect) Influenza Type A (PCR) NEGATIVE (Negative) Influenza Type B (PCR) NEGATIVE (Negative) RSV RNA Qual (PCR) NEGATIVE (Negative) SARS-CoV-2 RNA (RT-PCR) POSITIVE A (Negative) 10/12/23 Range/Units 13:58 WBC (4.8-10.8) X10*3/uL RBC (4.20-5.50) X10*6/uL Hgb (12.0-16.0) g/dl Hct (37.0-47.0) % MCV (80.0-98.0) fL MCH (27.0-33.0) pg MCHC (31.0-35.0) g/dl RDW (11.0-16.0) % Plt Count (160-400) X10*3/uL MPV (9.4-12.3) fL Immature Gran % (Auto) Neut % (Auto) Lymph % (Auto) Fallon % (Auto) Eos % (Auto) Baso % (Auto) Lymph # (Auto) Fallon # (Auto) Eos # (Auto) Baso # (Auto) Abs Immat Gran (auto) Absolute Neuts (auto) Absolute Nucleated RBC (0.0-0.012) X10*3/uL Nucleated RBC % (auto) (0.0-0.2) /100WBC Neutrophils % (Manual) (45-73) % Band Neutrophils % (3-5) % Lymphocytes % (Manual) (20-40) % Monocytes % (Manual) (2-11) % Abs Neuts (Manual) (2.0-8.3) X10*3/uL Lymphocytes # (Manual) (1.2-4.9) X10*3/uL Monocytes # (Manual) (0.1-1.2) X10*3/uL Toxic Vacuolation Platelet Estimate (NORMAL) Plt Morphology Comment RBC Morphology Sodium (135-145) mmol/L Potassium (3.3-5.1) mmol/L Chloride (96-108) mmol/L Carbon Dioxide (22-29) mmol/L Anion Gap (12-20) BUN (9-16) mg/dL Creatinine (0.5-1.4) mg/dL Estim Creat Clear Calc Estimated GFR Random Glucose (60-115) mg/dL Lactic Acid (0.5-2.0) mmol/L Calcium (8.4-10.2) mg/dL Magnesium (1.6-2.6) mg/dL Total Bilirubin (0.0-1.0) mg/dL Direct Bilirubin (0.0-0.5) mg/dL AST (5-31) U/L ALT (0-31) U/L Alkaline Phosphatase (39-117) U/L Troponin I High Sens 9.4 (<3.5-17.0) ng/L Total Protein (6.5-8.0) g/dL Albumin (3.5-5.0) g/dL Urine Color Urine Appearance Urine pH (5.0-9.0) Ur Specific Lenora (1.005-1.025) Urine Protein (Neg-Trace) mg/dL Urine Glucose (UA) (Negative) mg/dL Urine Ketones (Negative) mg/dL Urine Blood (Negative) Urine Nitrite (Negative) Ur Leukocyte Esterase (Negative) Urine Opiates Screen (Not Detect) Urine Fentanyl Screen (Not Detect) Ur Barbiturates Screen (Not Detect) Ur Phencyclidine Scrn (Not Detect) Ur Amphetamines Screen (Not Detect) U Benzodiazepines Scrn (Not Detect) Urine Cocaine Screen (Not Detect) U Marijuana (THC) Screen (Not Detect) Influenza Type A (PCR) (Negative) Influenza Type B (PCR) (Negative) RSV RNA Qual (PCR) (Negative) SARS-CoV-2 RNA (RT-PCR) (Negative) Independent Interpretation I performed an independent interpretation of an: EKG Interpretation: EKG sinus tachycardia at 102 beats per minute, WA interval 160, QTC 471. No ST elevation or depression. Radiology Impression Discussion of test interpretation with radiology: I have reviewed the radiologist's reading. Radiologist Impression: EXAMINATION: XR CHEST CLINICAL INFORMATION: Weakness. COMPARISON: Chest x-ray 05/05/2022 TECHNIQUE: Frontal view of the chest was obtained. FINDINGS: The lungs are hypoexpanded with patchy consolidation right upper lobe rest of lungs are clear. The heart size and pulmonary vascularity is normal. There are pacer electrodes in right atrium and right ventricle. No gross bony abnormality seen. XR/XR chest 1V IMPRESSION: Right upper lobe patchy consolidation. Is new since the last chest x-ray 05/05/2022. Dictated By: Ramon George MD Signed By: <Electronically shyla EXAMINATION: CT ABDOMEN AND PELVIS WITHOUT CONTRAST CLINICAL INFORMATION: Left lower quadrant pain COMPARISON: CT abdomen pelvis June 16, 2022 TECHNIQUE: Multidetector volumetric imaging was performed from the superior aspect of the liver through the pubic symphysis. Sagittal and coronal reformatted images were obtained on the technologist's workstation. This CT examination was performed using dose optimization techniques as appropriate, variously including the following: *Automated exposure control *Adjustment of mA and/or kV according to patient size (this includes techniques or standardized protocols for targeted exams where dose is matched to indication/reason for exam; i.e. extremities or head) *Use of iterative reconstruction technique DLP: 1205 mGy-cm FINDINGS: Visualized lung bases demonstrate mild dependent atelectasis. Pacemaker leads partially visualized. The liver is normal in size but demonstrates diffusely decreased attenuation. The gallbladder is surgically absent. The pancreas, spleen and adrenal glands are unremarkable. Horseshoe style kidney is. Renal calculi are noted bilaterally, more prominent within the left moiety. There is no hydronephrosis present. Similar postsurgical changes of the stomach consistent with gastric bypass. Normal caliber loops of small and large bowel. Anastomotic suture line noted within the sigmoid colon. Mild to moderate colonic diverticulosis without CT evidence to suggest active diverticulitis. A moderate stool burden is again noted throughout the majority the colon with a prominent stool burden again appreciated within the rectal vault. Normal appendix. Normal caliber abdominal aorta. Small foci of air are noted within the left common iliac vein, nonspecific. Possibly No retroperitoneal lymphadenopathy. The bladder is prominently distended but otherwise unremarkable. Uterus is surgically absent. No gross free pelvic fluid. No inguinal lymphadenopathy. Moderate diffuse degenerative changes of the spine. Chronic compression deformities of the L3 and L4 vertebral bodies. CT/CT abdomen pelvis wo IV con IMPRESSION: 1. Colonic diverticulosis without CT evidence to suggest active diverticulitis. 2. Moderate stool burden throughout the colon suggesting constipation. 3. Diffusely decreased liver attenuation suggesting hepatic steatosis. Correlation with liver enzymes recommended. 4. 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 No hydronephrosis. 5. Small foci of air are noted within the left common iliac vein. This is a nonspecific finding but may be related to recent venipuncture. Clinical correlation recommended. Fleischner guidelines were followed. Dictated By: Fabio Rome MD Attending Dr: Ordering Physician: Nancy Kruse Date of Service: 10/12/23 Procedure(s): CT head/brain wo IV con Accession Number(s): [id number] cc: Nancy Kruse; Physician,Unknown ~ EXAMINATION: CT brain and CT cervical spine without contrast. CLINICAL INDICATIONS: Fall. COMPARISON: CT brain 09/23/2021 TECHNIQUE: 5 mm thin axial and reformatted 2 mm thin sagittal and coronal images of brain were obtained. Subsequently axial 3 mm thin and reformatted 2 mm thin sagittal and coronal images of cervical spine were obtained. DLP [id number]. This CT examination was performed using dose optimization technique as appropriate, variously including the following: Automated exposure control Adjustment of MA and/or KV according to patient size(this includes techniques or standardized protocols for targeted exams where dose is matched to indication/reason for exam; extremities or head. Use of iterative reconstruction techniques. FINDINGS: Brain: There is no acute intra-axial, extra-axial bleed, masses or midline shift. There is no acute infarction in evolution. No edema the garcia to white matter differentiation is maintained normal. The lateral ventricles are symmetrical in size and configuration without enlargement. Bone windows reveal no calvarial abnormality. Bilateral paranasal sinuses and mastoid air cells are well-aerated. There is no scalp soft tissue abnormality. Bilateral paranasal sinuses and mastoid air cells are well-aerated. Cervical spine: There is normal cervical lordosis. The vertebral heights, alignment and disc heights are normal. There is no visible acute fracture, dislocation or subluxation. There is mild ventral spondylosis C4-C5, C5-C6 and C6-C7 disc levels. The craniovertebral junction and the C1-C2 alignment is normal. No aggressive lytic or sclerotic process seen. The prevertebral and paravertebral soft tissues are normal. The airway is widely patent. There is a right apical parenchymal scarring/infiltrate and apical pleural thickening. The thyroid lobes are symmetrical but slightly enlarged and mildly heterogeneous CT/CT head/brain wo IV con IMPRESSION: No acute intracranial process seen. There is no acute fracture or dislocation of cervical spine. Dictated By: Ramon George MD Prescription Management I considered prescription management with: Antibiotic Critical Care Time Critical Care Time Critical Care Time: Yes Total Critical Care Time: 45 Attestation: I have personally provided critical care time exclusive of time spent on separately billable procedures. Time includes review of lab data, radiology results, discussion with consultants, and monitoring for potential decompensation. Intervention performed as documented. Discharge Plan Discharge Clinical Impression: Community acquired pneumonia, COVID-19 Patient Disposition: Admitted As Inpatient
--- NOTE | 2023-10-12 10:18 | ECG_ITS ---
Test Reason : weakness Blood Pressure : / mmHG Vent. Rate : 102 BPM Atrial Rate : 102 BPM P-R Int : 160 ms QRS Dur : 114 ms QT Int : 362 ms P-R-T Axes : 000 189 154 degrees QTc Int : 471 ms Limb leads reversal Sinus tachycardia Right superior axis deviation Incomplete right bundle branch block Abnormal ECG When compared with ECG of 22-APR-2022 19:06, Limb leads reversal Referred By: Nancy Kruse Electronically Signed By:Mauro Armstrong
[2023-10-12] MEDS: 0.9 % Sodium Chloride 1,779 ML 1779 ML IV (10:30)
[2023-10-12 10:46] LABS: Hematocrit 34.5 % (37.0-47.0); Hemoglobin 11.1 g/dl (12.0-16.0); Mean Corpuscular HGB Conc 32.2 g/dl (31.0-35.0); Mean Corpuscular Hemoglobin 25.6 pg (27.0-33.0); Mean Corpuscular Volume 79.5 fL (80.0-98.0); Mean Platelet Volume 9.1 fL (9.4-12.3); Platelet Count 278 X10*3/uL (160-400); Red Blood Count 4.34 X10*6/uL (4.20-5.50); Red Cell Distribution Width 13.9 % (11.0-16.0); White Blood Count 14.2 X10*3/uL (4.8-10.8)
[2023-10-12 11:05] LABS: Alanine Aminotransferase 11 U/L (0-31); Albumin Level 3.9 g/dL (3.5-5.0); Alkaline Phosphatase 164 U/L (39-117); Anion Gap 17 (12-20); Aspartate Amino Transferase 18 U/L (5-31); Bilirubin Direct 0.1 mg/dL (0.0-0.5); Bilirubin Total 0.4 mg/dL (0.0-1.0); Blood Urea Nitrogen 23 mg/dL (9-16); Calcium 8.6 mg/dL (8.4-10.2); Carbon Dioxide 19 mmol/L (22-29); Chloride 108 mmol/L (96-108); Creatinine Clr Calc Pharmacy 38.3; Estimated Glomerular Filt Rate 29; Glucose Random 121 mg/dL (60-115); Magnesium 1.8 mg/dL (1.6-2.6); Potassium 4.5 mmol/L (3.3-5.1); Sodium 139 mmol/L (135-145); Total Protein 7.3 g/dL (6.5-8.0)
[2023-10-12 11:10] LABS: Band Neutrophils Percent 3 % (3-5); Lymphocytes Absolute Manual 0.7 X10*3/uL (1.2-4.9); Lymphocytes Percent Manual 5 % (20-40); Monocytes Percent Manual 7 % (2-11); Neutrophils Absolute Manual 12.5 X10*3/uL (2.0-8.3); Neutrophils Percent Manual 85 % (45-73)
[2023-10-12 11:11] LABS: Troponin-I High Sensitivity 11.7 ng/L (<3.5-17.0)
[2023-10-12 11:15] LABS: Platelet Estimate NORMAL (NORMAL); Platelet Morphology Comment NORMAL; RBC Morphology NORMAL; Toxic Vacuolation PRESENT
[2023-10-12 12:09] LABS: Influenza A PCR NEGATIVE (Negative); Influenza B PCR NEGATIVE (Negative); Resp Syncy Virus RNA Qual PCR NEGATIVE (Negative); SARS COV2 PCR INHOUSE POSITIVE (Negative)
[2023-10-12 13:35] LABS: Appearance Urine Clear; Color Urine Yellow; Glucose Urine UA Negative (Negative); Leukocyte Esterase Urine Negative (Negative); Nitrite Urine Negative (Negative); PH 5.5 (5.0-9.0); Urine Blood Negative (Negative); Urine Ketones Negative (Negative); Urine Protein Negative (Neg-Trace)
[2023-10-12] MEDS: cefTRIAXone sodium 1 GM in 0.9 % Sodium Chloride 50 ML IV (14:17)
[2023-10-12 14:29] LABS: Troponin-I High Sensitivity 9.4 ng/L (<3.5-17.0)
[2023-10-12 14:32] LABS: Amphetamine Screen Urine Not Detected (Not Detect); Barbiturates, Urine Not Detected (Not Detect); Benzodiazepines Screen Urine POSITIVE (Not Detect); Cannabinoid Screen Urine Not Detected (Not Detect); Cocaine Screen Urine Not Detected (Not Detect); Fentanyl, urine Not Detected (Not Detect); Opiate Screen Urine Not Detected (Not Detect); Phencyclidine Screen Urine Not Detected (Not Detect)
[2023-10-12] MEDS: Azithromycin 500 MG in 0.9 % Sodium Chloride 250 ML 125 MG IV (14:57)
--- NOTE | 2023-10-12 15:44 | PHA.MEDREC ---
Pharmacy Consult ? Medication Reconciliation Pharmacy has completed the medication reconciliation.
--- NOTE | 2023-10-12 16:32 | MHC.EDTECH ---
This pct assumed care of pt at 1445,vitals taken and Pt belongings list done ,Pure wick in Place ,Call ku within Pt reach .
--- NOTE | 2023-10-12 16:50 | P.HPHOSP_ITS ---
History of Present Illness Date of Service: 10/12/23 Chief Complaint: Weakness, falls, decrease PO intake A 53 years old lady with PMH of DM2, CKD3, Orthostatic hypotension, Epilepsy, PPM , anxiety among others who presents to the hospital with weakness, near falls and decrease ORal intake. The patient report being sick for few days prior to admission with weakness and fatigue accompanied by dizziness , cough, abdominal pain but denies fever, chills , chest pain, palpitations, SOB, nausea, vomiting, diarrhea or urinary symptoms. she tested positive for Covid last week. CXR showing RUL infiltrate. will be admitted for further evaluation and treatment. Review of Systems 2 Review of Systems: No fever, chills but has weakness No chest pain, palpitation No shortness of breath but having coughing No abdominal pain, nausea or vomiting No urinary symptoms No any rash or wounds PMFSH Medical History Brain lesion Anemia Back pain Diabetes Seizure disorder Anxiety Depression Status post extracorporeal shock wave therapy Pacemaker (~2015) Pulmonary embolus, left (~04/2020) Anastomotic ulcer S/P gastric bypass DVT of right axillary vein, acute Diverticulitis Endometrial cancer Renal stones Hypotension Family History Father No problems noted. Mother Diabetes Chronic mental illness Father No problems noted. Mother No problems noted. Surgical History History of esophagogastroduodenoscopy (~06/2020) History of Trisha-en-Y gastric bypass (~10/2019) H/O tooth extraction Hx laparoscopic cholecystectomy Hx of appendectomy S/P CELESTINO (total abdominal hysterectomy) Hx of hernia repair History of sleeve gastrectomy (~2014) Social History Household Members: None and Unknown / Unable to assess Housing: Unknown / Unable to assess Do you presently have visiting nurse or other home services: No Unable to assess alcohol history related to: Unable to respond Alcohol intake: current Alcohol intake frequency: 0-2 drinks per day Comment: PATIENT STATES RECENT FALL REQUIRING GO E.R. S/P FALL Smoked in Last 30 Days: No Second Hand Smoke Exposure: No Use of substances other than those prescribed or required for medical reasons: Yes Substance Use Type: Marijuana, Opiates and Prescription Drugs Substance Use Frequency: Occasionally Advance Directives: Yes Advance Directives on File: Yes Advance Directives Date on File: 04/23/22 service: No Current occupational status: disabled Meds Allergies Allergy/AdvReac Type Severity Reaction Status Date / Time egg [EGGS] AdvReac Intermediate NAUSEA/VOMI Verified 09/26/20 17:45 TING sumatriptan [From IMITREX] AdvReac Intermediate HEART Verified 09/26/20 17:45 PALPITATIONS Ibuprofen Allergy Unknown Unknown Uncoded 09/01/20 14:56 Active Medications: Current Medications Acetaminophen (Acetaminophen 325 Mg Tablet) 650 mg PO Q6H PRN PRN Reason: Pain, Mild (Pain Scale 1-3) Enoxaparin Sodium (Enoxaparin Sodium 40 Mg/0.4 Ml Syringe) 40 mg SUBCUT Q24H LUPE Dextrose/Sodium Chloride (D5ns) 1,000 mls @ 100 mls/hr IVCONT .Q10H [place]PE Morphine Sulfate (Morphine Sulfate 4 Mg/Ml Cartridge) 2 mg IVPUSH Q4H PRN; Protocol PRN Reason: Pain, Severe (Pain Scale 7-10) Ondansetron HCl (Ondansetron Hcl 4 Mg/2 Ml Vial) 4 mg IVPUSH Q8H PRN PRN Reason: Nausea and Vomiting Sodium Chloride (0.9 % Sodium Chloride Flush 3 Ml Syringe) 3 ml IVFLUSH QSHIFT [facility] Home Medications Medication Instructions Recorded Confirmed Last Taken Type alprazolam 1 mg tablet 1 tab PO DAILY PRN Anxiety 04/13/21 10/12/23 Unknown History melatonin 5 mg capsule 1 cap PO BEDTIME 04/13/21 10/12/23 10/11/23 History venlafaxine 150 mg 1 cap PO DAILY 04/13/21 10/12/23 10/12/23 History capsule,extended release 24 hr zolpidem 10 mg tablet 1 tab PO BEDTIME insomnia 04/13/21 10/12/23 10/11/23 History amitriptyline 25 mg tablet 2 tab PO BEDTIME Insomnia 04/23/22 10/12/23 Unknown History atorvastatin 20 mg tablet 1 tab PO DAILY 04/23/22 10/12/23 10/11/23 History sucralfate 100 mg/mL oral 10 ml PO QID 04/23/22 10/12/23 10/11/23 History suspension levetiracetam 1,000 mg tablet 1,500 mg PO Q12H 10/12/23 10/12/23 10/12/23 09:00 History midodrine 10 mg tablet 10 mg PO TID@0800,1300,1800 10/12/23 10/12/23 10/11/23 History nilpxyyj-doupmjdy-jzse 45 mg-folic 1 cap PO DAILY 10/12/23 10/12/23 10/11/23 History acid 800 mcg-vit K 120 mcg capsule (Bariatric Multivitamins) nystatin 100,000 unit/gram topical 1 appl topical DAILY PRN Rash 10/12/23 10/12/23 Unknown History powder (Nystop) pantoprazole 40 mg tablet,delayed 40 mg PO DAILY@0630 10/12/23 10/12/23 10/12/23 History release tizanidine 2 mg tablet 2 mg PO BID 10/12/23 10/12/23 10/11/23 History Physical Exam 2 Vital Signs and Narrative: Vital Signs: Last Vital Signs Temp 97.6 F 10/12/23 16:20 Pulse 79 10/12/23 16:20 Resp 20 10/12/23 16:20 BP 114/63 10/12/23 16:20 Pulse Ox 95 10/12/23 16:20 O2 Del Method Room Air 10/12/23 16:20 BMI result Body Mass Index 29.0 Const: Other: Constitutional : Awake, fatigued and weak, not in distress Neck : Normal inspection, Supple Cardiovascular : RRR, no JVP, no lower extremity edema Respiratory : good bilateral air entry, no crackles, wheezes or rhonchi Gastrointestinal: soft, lax, Normal bowel sounds, no significant tenderness LLQ, no surgical signs Skin : Warm, Dry Neurological : Alert & oriented x3, No focal deficit Results Labs 10/12/23 10:37 10/12/23 10:37 Labs: Laboratory Results - last 24 hr 10/12/23 10/12/23 10/12/23 10:37 10:55 13:18 MCV 79.5 L MCH 25.6 L MCHC 32.2 RDW 13.9 Plt Count 278 MPV 9.1 L Immature Gran % (Auto) Cancelled Neut % (Auto) Cancelled Lymph % (Auto) Cancelled [place] % (Auto) Cancelled Eos % (Auto) Cancelled Baso % (Auto) Cancelled Lymph # (Auto) Cancelled [place] # (Auto) Cancelled Eos # (Auto) Cancelled Baso # (Auto) Cancelled Abs Immat Gran (auto) Cancelled Absolute Neuts (auto) Cancelled Absolute Nucleated RBC 0.000 Nucleated RBC % (auto) 0.0 Neutrophils % (Manual) 85 H Band Neutrophils % 3 Lymphocytes % (Manual) 5 L Monocytes % (Manual) 7 Abs Neuts (Manual) 12.5 H Lymphocytes # (Manual) 0.7 L Monocytes # (Manual) 1.0 Toxic Vacuolation PRESENT Platelet Estimate NORMAL Plt Morphology Comment NORMAL RBC Morphology NORMAL Anion Gap 17 Estim Creat Clear Calc 38.3 Estimated GFR 29 Random Glucose 121 H Lactic Acid 1.0 Calcium 8.6 D Magnesium 1.8 Total Bilirubin 0.4 Direct Bilirubin 0.1 AST 18 ALT 11 Alkaline Phosphatase 164 H Total Protein 7.3 Albumin 3.9 Urine Color Yellow Urine Appearance Clear Urine pH 5.5 Ur Specific [place] 1.010 Urine Protein Negative Urine Glucose (UA) Negative Urine Ketones Negative Urine Blood Negative Urine Nitrite Negative Ur Leukocyte Esterase Negative Urine Opiates Screen Not Detected Urine Fentanyl Screen Not Detected Ur Barbiturates Screen Not Detected Ur Phencyclidine Scrn Not Detected Ur Amphetamines Screen Not Detected U Benzodiazepines Scrn POSITIVE H Urine Cocaine Screen Not Detected U Marijuana (THC) Screen Not Detected Influenza Type A (PCR) NEGATIVE Influenza Type B (PCR) NEGATIVE RSV RNA Qual (PCR) NEGATIVE SARS-CoV-2 RNA (RT-PCR) POSITIVE A Imaging Radiologist's Impressions: Impressions Cervical Spine CT 10/12/23 11:51 IMPRESSION: No acute intracranial process seen. There is no acute fracture or dislocation of cervical spine. Head CT 10/12/23 11:51 IMPRESSION: No acute intracranial process seen. There is no acute fracture or dislocation of cervical spine. Abdomen/Pelvis CT 10/12/23 12:06 IMPRESSION: 1. Colonic diverticulosis without CT evidence to suggest active diverticulitis. 2. Moderate stool burden throughout the colon suggesting constipation. 3. Diffusely decreased liver attenuation suggesting hepatic steatosis. Correlation with liver enzymes recommended. 4. 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 No hydronephrosis. 5. Small foci of air are noted within the left common iliac vein. This is a nonspecific finding but may be related to recent venipuncture. Clinical correlation recommended. Fleischner guidelines were followed. Chest X-Ray 10/12/23 12:13 IMPRESSION: Right upper lobe patchy consolidation. Is new since the last chest x-ray 05/05/2022. Assessment and Plan (1) COVID-19: Status: Acute (2) Fall: Status: Acute (3) Community acquired pneumonia: Status: Acute Plan A 53 years old lady with PMH of CKD3, Orthostatic hypotension, Epilepsy, PPM , anxiety among others who presents to the hospital with weakness, near falls and decrease ORal intake. RUL pneumonia not septic cultures pending IV Ceftriaxone and Azithromycin Covid19 infx w decreased PO intake Not hypoxic supportive measures Advised to increase PO intake Epilepsy continue Keppra Fall 2/2 Physical deconditioning PT eval Orthostatic hypotension give IVF Midodrine Mood disorders continue home medications DVT PPx Lovenox Quality Stroke Does the patient have a stroke diagnosis?: No VTE Prior VTE?: No VTE Risk Level:: Medical - moderate - high VTE Device Contraindication: Treatment Not Indicated VTE Drug Contraindication: N/A - Med Ordered
[2023-10-12] MEDS: Sucralfate Oral Suspension 1 GM/10 ML ORAL.SUSP PO ×2 (18:03→21:21)
[2023-10-12] MEDS: Midodrine HCl 10 MG TABLET PO (18:03)
[2023-10-12] MEDS: Morphine Sulfate 4 MG/ML CARTRIDGE 2 MG IVPUSH ×2 (18:04→22:38)
[2023-10-12] MEDS: Enoxaparin Sodium 40 MG/0.4 ML SYRINGE SUBCUT (18:04)
[2023-10-12 18:17] LABS: Troponin-I High Sensitivity 7.3 ng/L (<3.5-17.0)
[2023-10-12] MEDS: Dextrose 5 % and 0.9 % NaCl 1,000 ML 100 ML IVCONT (19:50)
--- NOTE | 2023-10-12 20:47 | MHC.EDTECH ---
Patient was given dinner ate 100 % ,drank 240 ml fluids ,vitals taken ,pt comfortable watching television ,no apparent distress noted .
[2023-10-12] MEDS: levETIRAcetam 500 MG TABLET 1500 MG PO (21:21)
[2023-10-12] MEDS: Zolpidem Tartrate 5 MG TABLET PO (21:21)
[2023-10-12] MEDS: Melatonin 3 MG TABLET 6 MG PO (21:21)
[2023-10-13 03:14] VITALS: BP 134/65; PULSE 63; RESP 18; TEMP 36.4; O2SAT 100
[2023-10-13] MEDS: Morphine Sulfate 4 MG/ML CARTRIDGE 2 MG IVPUSH ×5 (03:17→22:31)
[2023-10-13] MEDS: Omeprazole 20 MG CAPSULE.DR PO (06:19)
[2023-10-13] MEDS: Dextrose 5 % and 0.9 % NaCl 1,000 ML 100 ML IVCONT ×2 (06:19→16:47)
[2023-10-13 07:21] LABS: MANUAL DIFF FLAG NO
[2023-10-13 07:32] LABS: Basophils Percent Auto 0.7 % (0-2); Eosinophils Absolute Auto 0.1 X10*3/uL (0.0-0.4); Eosinophils Percent Auto 3.1 % (0-4); Hematocrit 32.1 % (37.0-47.0); Hemoglobin 10.1 g/dl (12.0-16.0); Imm Gran Abs Auto 0.03 X10*3/uL (0.00-0.03); Imm Gran Pct Auto 0.7 % (0.0-0.4); Lymphocytes Percent Auto 22.8 % (20-40); Mean Corpuscular HGB Conc 31.5 g/dl (31.0-35.0); Mean Corpuscular Hemoglobin 26.1 pg (27.0-33.0); Mean Corpuscular Volume 82.9 fL (80.0-98.0); Mean Platelet Volume 9.8 fL (9.4-12.3); Monocytes Absolute Auto 0.4 X10*3/uL (0.1-1.2); Monocytes Percent Auto 7.8 % (2-11); Neutrophils Absolute Auto 2.9 x10*3/uL (2.0-8.3); Neutrophils Percent Auto 64.9 % (45-73); Platelet Count 236 X10*3/uL (160-400); Red Blood Count 3.87 X10*6/uL (4.20-5.50); Red Cell Distribution Width 14.5 % (11.0-16.0); White Blood Count 4.5 X10*3/uL (4.8-10.8)
[2023-10-13 07:50] LABS: Anion Gap 12 (12-20); Blood Urea Nitrogen 21 mg/dL (9-16); Calcium 8.3 mg/dL (8.4-10.2); Carbon Dioxide 18 mmol/L (22-29); Chloride 114 mmol/L (96-108); Creatinine Clr Calc Pharmacy 47.2; Estimated Glomerular Filt Rate 33; Glucose Random 84 mg/dL (60-115); Potassium 4.3 mmol/L (3.3-5.1); Sodium 140 mmol/L (135-145)
[2023-10-13 07:57] VITALS: BP 133/78; PULSE 70; RESP 20; TEMP 36.4; O2SAT 99
[2023-10-13] MEDS: Venlafaxine HCl ER 150 MG CAP.ER.24H PO (08:50)
[2023-10-13] MEDS: Midodrine HCl 10 MG TABLET PO ×3 (08:50→16:47)
[2023-10-13] MEDS: TiZANidine HCL 4 MG TABLET 2 MG PO ×2 (08:50→20:39)
[2023-10-13] MEDS: Sucralfate Oral Suspension 1 GM/10 ML ORAL.SUSP PO ×4 (08:50→20:40)
[2023-10-13] MEDS: Atorvastatin Calcium 20 MG TABLET PO (08:51)
[2023-10-13] MEDS: levETIRAcetam 500 MG TABLET 1500 MG PO ×2 (08:51→20:39)
--- NOTE | 2023-10-13 09:43 | P.PNIM_ITS ---
Subjective Subjective Date of Service: 10/13/23 Interval History: Seen and evaluated feels tired and fatigued denies fever or chills No SOB or dyspnea Review of Systems Review of Systems: Yes all other systems are reviewed and are negative Physical Exam 2 Vital Signs: Vital Signs: Last Vital Signs Temp 97.6 F 10/13/23 07:57 Pulse 70 10/13/23 07:57 Resp 20 10/13/23 07:57 BP 133/78 10/13/23 07:57 Pulse Ox 99 10/13/23 07:57 O2 Del Method Room Air 10/13/23 07:57 BMI result Body Mass Index 36.2 Const: Other: Constitutional : Awake, fatigued and weak, not in distress Neck : Normal inspection, Supple Cardiovascular : RRR, no JVP, no lower extremity edema Respiratory : good bilateral air entry, no crackles, wheezes or rhonchi Gastrointestinal: soft, lax, Normal bowel sounds, no significant tenderness, no surgical signs Skin : Warm, Dry Neurological : Alert & oriented x3, No focal deficit Objective Data Active Medications Acetaminophen (Acetaminophen 325 Mg Tablet) 650 mg PO Q6H PRN PRN Reason: Pain, Mild (Pain Scale 1-3) Alprazolam (Alprazolam 0.5 Mg Tablet) 1 mg PO DAILY PRN PRN Reason: Anxiety Amitriptyline HCl (Amitriptyline Hcl 50 Mg Tablet) 50 mg PO BEDTIME [facility] Last Admin: 10/12/23 21:21 Dose: Not Given Documented By: LILIAM Non-Admin Reason: Med Not Available Atorvastatin Calcium (Atorvastatin Calcium 20 Mg Tablet) 20 mg PO DAILY [facility] Last Admin: 10/13/23 08:51 Dose: 20 mg Documented By: JOHNY Docusate Sodium (Docusate Sodium 100 Mg Capsule) 100 mg PO BID PRN PRN Reason: Stool softener Enoxaparin Sodium (Enoxaparin Sodium 40 Mg/0.4 Ml Syringe) 40 mg SUBCUT Q24H [facility] Last Admin: 10/12/23 18:04 Dose: 40 mg Documented By: VALDEMAR Dextrose/Sodium Chloride (D5ns) 1,000 mls @ 100 mls/hr IVCONT .Q10H [facility] Last Admin: 10/13/23 06:19 Dose: 100 mls/hr Documented By: LY Levetiracetam (Levetiracetam 500 Mg Tablet) 1,500 mg PO Q12H [facility] Last Admin: 10/13/23 08:51 Dose: 1,500 mg Documented By: JOHNY Melatonin (Melatonin 3 Mg Tablet) 6 mg PO BEDTIME [facility] Last Admin: 10/12/23 21:21 Dose: 6 mg Documented By: LILIAM Midodrine (Midodrine Hcl 10 Mg Tablet) 10 mg PO TID@0800,1300,1800 [facility] Last Admin: 10/13/23 08:50 Dose: 10 mg Documented By: JOHNY Morphine Sulfate (Morphine Sulfate 4 Mg/Ml Cartridge) 2 mg IVPUSH Q4H PRN; Protocol PRN Reason: Pain, Severe (Pain Scale 7-10) Last Admin: 10/13/23 08:50 Dose: 2 mg Documented By: JOHNY Omeprazole (Omeprazole 20 Mg Capsule.Dr) 20 mg PO DAILY@0630 [facility] Last Admin: 10/13/23 06:19 Dose: 20 mg Documented By: LY Ondansetron HCl (Ondansetron Hcl 4 Mg/2 Ml Vial) 4 mg IVPUSH Q8H PRN PRN Reason: Nausea and Vomiting Sodium Chloride (0.9 % Sodium Chloride Flush 3 Ml Syringe) 3 ml IVFLUSH QSHIFT [facility] Last Admin: 10/13/23 08:39 Dose: Not Given Documented By: JOHNY Non-Admin Reason: IV Running Sucralfate (Sucralfate Oral Suspension 1 Gm/10 Ml Oral.Susp) 1 gm PO QID [facility] Last Admin: 10/13/23 08:50 Dose: 1 gm Documented By: JOHNY Tizanidine HCl (Tizanidine Hcl 4 Mg Tablet) 2 mg PO BID [facility] Last Admin: 10/13/23 08:50 Dose: 2 mg Documented By: JOHNY Venlafaxine HCl (Venlafaxine Hcl Er 150 Mg Cap.Er.24h) 150 mg PO DAILY [facility] Last Admin: 10/13/23 08:50 Dose: 150 mg Documented By: JOHNY Zolpidem Tartrate (Zolpidem Tartrate 5 Mg Tablet) 5 mg PO BEDTIME [facility] Last Admin: 12/16/23 21:21 Dose: 5 mg Documented By: LILIAM Labs 10/13/23 07:14 10/13/23 07:14 Labs: Laboratory Results - last 24 hr 10/12/23 10/12/23 10/12/23 10:37 10:55 13:18 MCV 79.5 L MCH 25.6 L MCHC 32.2 RDW 13.9 Plt Count 278 MPV 9.1 L Immature Gran % (Auto) Cancelled Neut % (Auto) Cancelled Lymph % (Auto) Cancelled [place] % (Auto) Cancelled Eos % (Auto) Cancelled Baso % (Auto) Cancelled Lymph # (Auto) Cancelled [place] # (Auto) Cancelled Eos # (Auto) Cancelled Baso # (Auto) Cancelled Abs Immat Gran (auto) Cancelled Absolute Neuts (auto) Cancelled Absolute Nucleated RBC 0.000 Nucleated RBC % (auto) 0.0 Neutrophils % (Manual) 85 H Band Neutrophils % 3 Lymphocytes % (Manual) 5 L Monocytes % (Manual) 7 Abs Neuts (Manual) 12.5 H Lymphocytes # (Manual) 0.7 L Monocytes # (Manual) 1.0 Toxic Vacuolation PRESENT Platelet Estimate NORMAL Plt Morphology Comment NORMAL RBC Morphology NORMAL Anion Gap 17 Estim Creat Clear Calc 38.3 Estimated GFR 29 Random Glucose 121 H Lactic Acid 1.0 Calcium 8.6 D Magnesium 1.8 Total Bilirubin 0.4 Direct Bilirubin 0.1 AST 18 ALT 11 Alkaline Phosphatase 164 H Total Protein 7.3 Albumin 3.9 Urine Color Yellow Urine Appearance Clear Urine pH 5.5 Ur Specific [place] 1.010 Urine Protein Negative Urine Glucose (UA) Negative Urine Ketones Negative Urine Blood Negative Urine Nitrite Negative Ur Leukocyte Esterase Negative Urine Opiates Screen Not Detected Urine Fentanyl Screen Not Detected Ur Barbiturates Screen Not Detected Ur Phencyclidine Scrn Not Detected Ur Amphetamines Screen Not Detected U Benzodiazepines Scrn POSITIVE H Urine Cocaine Screen Not Detected U Marijuana (THC) Screen Not Detected Influenza Type A (PCR) NEGATIVE Influenza Type B (PCR) NEGATIVE RSV RNA Qual (PCR) NEGATIVE SARS-CoV-2 RNA (RT-PCR) POSITIVE A 10/13/23 07:14 MCV 82.9 MCH 26.1 L MCHC 31.5 RDW 14.5 Plt Count 236 MPV 9.8 Immature Gran % (Auto) 0.7 H Neut % (Auto) 64.9 Lymph % (Auto) 22.8 [place] % (Auto) 7.8 Eos % (Auto) 3.1 Baso % (Auto) 0.7 Lymph # (Auto) 1.0 L [place] # (Auto) 0.4 Eos # (Auto) 0.1 Baso # (Auto) 0.0 Abs Immat Gran (auto) 0.03 Absolute Neuts (auto) 2.9 Absolute Nucleated RBC 0.000 Nucleated RBC % (auto) 0.0 Neutrophils % (Manual) Band Neutrophils % Lymphocytes % (Manual) Monocytes % (Manual) Abs Neuts (Manual) Lymphocytes # (Manual) Monocytes # (Manual) Toxic Vacuolation Platelet Estimate Plt Morphology Comment RBC Morphology Anion Gap 12 Estim Creat Clear Calc 47.2 Estimated GFR 33 Random Glucose 84 Lactic Acid Calcium 8.3 L Magnesium Total Bilirubin Direct Bilirubin AST ALT Alkaline Phosphatase Total Protein Albumin Urine Color Urine Appearance Urine pH Ur Specific [place] Urine Protein Urine Glucose (UA) Urine Ketones Urine Blood Urine Nitrite Ur Leukocyte Esterase Urine Opiates Screen Urine Fentanyl Screen Ur Barbiturates Screen Ur Phencyclidine Scrn Ur Amphetamines Screen U Benzodiazepines Scrn Urine Cocaine Screen U Marijuana (THC) Screen Influenza Type A (PCR) Influenza Type B (PCR) RSV RNA Qual (PCR) SARS-CoV-2 RNA (RT-PCR) Assessment and Plan (1) COVID-19: Status: Acute (2) Community acquired pneumonia: Status: Acute (3) Fall: Status: Acute Plan A 53 years old lady with PMH of CKD3, Orthostatic hypotension, Epilepsy, PPM , anxiety among others who presents to the hospital with weakness, near falls and decrease ORal intake. RUL pneumonia not septic cultures pending IV Ceftriaxone and Azithromycin Covid19 infx w decreased PO intake Not hypoxic supportive measures Advised to increase PO intake Epilepsy continue Keppra Fall 2/2 Physical deconditioning PT eval Orthostatic hypotension give IVF Midodrine Mood disorders continue home medications DVT PPx Lovenox The patient will need overnight hospital stay as inpatient given fatigue and risk of fall pending PT evaluation and possible need of placement. Quality Stroke Does the patient have a stroke diagnosis?: No VTE Prior VTE?: No VTE Risk Level:: Medical - moderate - high VTE Device Contraindication: Treatment Not Indicated VTE Drug Contraindication: N/A - Med Ordered
[2023-10-13 11:17] VITALS: BP 100/61; PULSE 62; RESP 20; TEMP 36.4; O2SAT 96
--- NOTE | 2023-10-13 15:49 | MHC.CM.PN ---
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 PT VERIFIES PCP AND HCP ON FILE ARE CORRECT AND PT REPORTS SHE IS FULLY COVID VAXED AND ALSO HAD HER FLU SHOT THIS YEAR.
[2023-10-13 16:00] VITALS: BP 127/57; PULSE 75; RESP 20; TEMP 36.7; O2SAT 97
[2023-10-13] MEDS: Enoxaparin Sodium 40 MG/0.4 ML SYRINGE SUBCUT (16:48)
[2023-10-13 19:42] VITALS: BP 125/63; PULSE 69; RESP 20; TEMP 36.2; O2SAT 97
[2023-10-13] MEDS: Melatonin 3 MG TABLET 6 MG PO (20:39)
[2023-10-13] MEDS: Zolpidem Tartrate 5 MG TABLET PO (20:39)
[2023-10-13] MEDS: Amitriptyline HCl 50 MG TABLET PO (20:40)
[2023-10-14] VITALS: BP 106/56; PULSE 70; RESP 18; TEMP 36.8; O2SAT 95
[2023-10-14 03:49] VITALS: BP 138/72; PULSE 72; RESP 18; TEMP 36.4; O2SAT 97
[2023-10-14] MEDS: Dextrose 5 % and 0.9 % NaCl 1,000 ML 100 ML IVCONT (03:58)
[2023-10-14] MEDS: Morphine Sulfate 4 MG/ML CARTRIDGE 2 MG IVPUSH ×3 (03:58→12:44)
[2023-10-14] MEDS: Omeprazole 20 MG CAPSULE.DR PO (06:47)
[2023-10-14 07:46] VITALS: BP 140/74; PULSE 82; RESP 18; TEMP 36.2; O2SAT 97
[2023-10-14] MEDS: Venlafaxine HCl ER 150 MG CAP.ER.24H PO (08:51)
[2023-10-14] MEDS: TiZANidine HCL 4 MG TABLET 2 MG PO (08:51)
[2023-10-14] MEDS: Atorvastatin Calcium 20 MG TABLET PO (08:51)
[2023-10-14] MEDS: Midodrine HCl 10 MG TABLET PO ×2 (08:51→12:44)
[2023-10-14] MEDS: Sucralfate Oral Suspension 1 GM/10 ML ORAL.SUSP PO ×2 (08:51→12:44)
[2023-10-14] MEDS: levETIRAcetam 500 MG TABLET 1500 MG PO (08:51)
[2023-10-14] MEDS: 0.9 % Sodium Chloride Flush 3 ML SYRINGE IVFLUSH (08:52)
[2023-10-14 11:34] VITALS: BP 142/67; PULSE 65; RESP 17; TEMP 36.5; O2SAT 97
--- NOTE | 2023-10-14 12:15 | PM.DS ---
DS: Providers Provider Date of Service: 10/14/23 Date of admission: 10/13/23 10:13 Primary care physician: Unknown Physician DS: Diagnosis Discharge Diagnosis (1) COVID-19: Status: Acute (2) Community acquired pneumonia: Status: Acute (3) Fall: Status: Acute DS: Summary Hospital Course Hospital Course: Admission note HPI A 53 years old lady with PMH of DM2, CKD3, Orthostatic hypotension, Epilepsy, PPM , anxiety among others who presents to the hospital with weakness, near falls and decrease ORal intake. The patient report being sick for few days prior to admission with weakness and fatigue accompanied by dizziness , cough, abdominal pain but denies fever, chills , chest pain, palpitations, SOB, nausea, vomiting, diarrhea or urinary symptoms. she tested positive for Covid last week. CXR showing RUL infiltrate. will be admitted for further evaluation and treatment. Hospital course # RUL pneumonia not septic on admission. CXR showed infiltrates. cultures negative. treated with IV Ceftriaxone and Azithromycin with good response. to finish Azitrhomycin and Ceftin at home. # Covid19 infx w decreased PO intake Not hypoxic. supportive measures with good response as she has increased PO intake. # Fall 2/2 Physical deconditioning Improved physically and felt better after supportive theraly. PT evaluated her and recommended that no therapy is needed as she is independent. Continue Azirhtomycin and Ceftin as prescribed Start Metamucil for constipation, target 1-2 regular bowel motions daily Time Attestation Discharge coordination time: Greater than 30 minutes Quality: Safe Use of Opioids Does Pt have an Active Cancer Diagnosis on the Problem List?: No Quality: Stroke Does the patient have a stroke diagnosis?: No Physical Exam Vital Signs: Vital Signs: Last Vital Signs Temp 97.7 F 10/14/23 11:34 Pulse 65 10/14/23 11:34 Resp 17 10/14/23 11:34 BP 142/67 H 10/14/23 11:34 Pulse Ox 97 10/14/23 11:34 O2 Del Method Room Air 10/14/23 11:34 BMI result Body Mass Index 36.2 Const: Other: Constitutional : Awake, fatigued and weak, not in distress Neck : Normal inspection, Supple Cardiovascular : RRR, no JVP, no lower extremity edema Respiratory : good bilateral air entry, no crackles, wheezes or rhonchi Gastrointestinal: soft, lax, Normal bowel sounds, no tenderness, no surgical signs Skin : Warm, Dry Neurological : Alert & oriented x3, No focal deficit DS: Data Data Completed and Pending Completed studies during hospitalization [Text1]: Procedures Transfusion of Nonautologous Red Blood Cells into Peripheral Vein, Percutaneous Approach (04/22/22) Labs on day of discharge: Preliminary micro results at discharge 10/12/23 10:55 Blood Culture - Preliminary Blood - Venous No growth after 24 hours. 10/12/23 10:37 Blood Culture - Preliminary Blood - Venous No growth after 24 hours. Imaging Chest x-ray: Radiologist's impression: ITS Impressions Cervical Spine CT 10/12/23 11:51 IMPRESSION: No acute intracranial process seen. There is no acute fracture or dislocation of cervical spine. Head CT 10/12/23 11:51 IMPRESSION: No acute intracranial process seen. There is no acute fracture or dislocation of cervical spine. Abdomen/Pelvis CT 10/12/23 12:06 IMPRESSION: 1. Colonic diverticulosis without CT evidence to suggest active diverticulitis. 2. Moderate stool burden throughout the colon suggesting constipation. 3. Diffusely decreased liver attenuation suggesting hepatic steatosis. Correlation with liver enzymes recommended. 4. 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 No hydronephrosis. 5. Small foci of air are noted within the left common iliac vein. This is a nonspecific finding but may be related to recent venipuncture. Clinical correlation recommended. Fleischner guidelines were followed. Chest X-Ray 10/12/23 12:13 IMPRESSION: Right upper lobe patchy consolidation. Is new since the last chest x-ray 05/05/2022. Discharge Plan Discharge Anticipated Discharge Date/Time: 10/14/23 12:08 Patient Disposition: Home, Self-Care Discharge Diagnosis: Pneumonia Covid 19 infection Referrals: Physician,Unknown J [Physician] - 1 Week Discharge Medications: New azithromycin 500 mg tablet 500 mg PO DAILY 5 Days Qty: 5 0RF cefuroxime axetil 500 mg tablet 500 mg PO BID Qty: 10 0RF Metamucil 3.4 gram/5.4 gram powder 1 tbsp PO BID Qty: 660 1RF Rx Instructions: mix into at least 8 oz of water or juice before administering Continued alprazolam 1 mg tablet 1 tab PO DAILY PRN (Reason: Anxiety) venlafaxine 150 mg capsule,extended release 24hr 1 cap PO DAILY zolpidem 10 mg tablet 1 tab PO BEDTIME melatonin 5 mg capsule 1 cap PO BEDTIME atorvastatin 20 mg tablet 1 tab PO DAILY sucralfate 100 mg/mL suspension 10 ml PO QID amitriptyline 25 mg tablet 2 tab PO BEDTIME acetaminophen 325 mg tablet 650 mg PO Q6H PRN (Reason: pain) Qty: 30 0RF docusate sodium [Colace] 100 mg capsule 100 mg PO BID PRN (Reason: Stool softener) Qty: 20 0RF tizanidine 2 mg tablet 2 mg PO BID nystatin [Nystop] 100,000 unit/gram powder 1 appl topical DAILY PRN (Reason: Rash) pantoprazole 40 mg tablet,delayed release (DR/EC) 40 mg PO DAILY@0630 levetiracetam 1,000 mg tablet 1,500 mg PO Q12H Bariatric Multivitamins 45 mg iron- 800 mcg-120 mcg Capsule 1 cap PO DAILY midodrine 10 mg tablet 10 mg PO TID@0800,1300,1800 Discharge Orders: Discharge Order (Routine); Ordered 10/14/23 Ordered By: Debby Jerry Diet: Advance to usual diet Activity on Discharge: As tolerated Stand Alone Forms: Patient Portal Discharge page Care Plan Goals: Read below Health Concerns: Read below Plan of Treatment: Read below Assessment: You were treated for pneumonia and post covid weakness with fall. treated with IV fluids and antibiotics with good response. you were evaluated by physical therapy team who found you in good shape. Continue Azirhtomycin and Ceftin as prescribed Start Metamucil for constipation, target 1-2 regular bowel motions daily Discharge Date/Time: 10/14/23 13:47
[2023-10-14] MEDS: Azithromycin 500 MG TABLET PO (12:44)
[2023-10-14] MEDS: polyethylene glycoL 3350 17 GM POWD.PACK PO (12:44)
[2023-10-14] MEDS: cefuroxime axetiL 500 MG TABLET PO (12:44)
--- NOTE | 2023-10-14 13:06 | MHC.CM.PN ---
Pt. has been medically cleared for DC. She will go home and resume prior services. CM arranged for [facility] [place] her [place].
--- NOTE | 2023-10-15 12:13 | P.CDIM_ITS ---
PROVIDER RESPONSE TEXT: To clarify, the appropriate diagnosis supported by the clinical indicators: Obesity Due to excess calories QUERY TEXT: PHYSICIAN'S DOCUMENTATION REQUEST Date of Query: 10/14/2023 10:07 AM EST Patient Name: Viki Slaughter Admit Date: 10/13/2023 Dear Debby Jerry, A review of the medical record indicates additional documentation may be needed. Please review below and update the documentation accordingly. Clinical Indicators: Nursing notes Height and Weight: BMI 36.2 101.8kg Obese class II If possible, please provide an associated diagnosis related to the abnormal BMI, such as: Overweight Obesity Due to excess calories Obesity Due to other cause Specify the other cause Severe or Morbid Obesity With alveolar hypoventilation Severe or Morbid Obesity Without alveolar hypoventilation Other (explain) Clinically unable to determine (explain) Thank you, Melvina Magallanes, CCS, CDIS Use of terms such as suspected, likely, concern for, or probable (associated with a specific diagnosi s that is being evaluated, monitored, or treated as if it exists) are acceptable and can be coded in the inpatient se tting, when documented at the time of discharge. Please use your independent medical judgment in providing your response. THIS QUERY IS PART OF THE PERMANENT MEDICAL RECORD
== END 2023-10-14 13:47 | disposition home or self-care (01) | DRG 177 ==
LOC: HO.ED 15:11 → HO.EDOVER 17:36 → HO.IMC 22:42
PROVIDERS: Physician Assistant Medical; Admitting Provider Student in an Organized Health Care Education/Training Program; Emergency Provider Emergency Medicine; PCP Internal Medicine; Visit Provider Student in an Organized Health Care Education/Training Program
DX: U07.1 COVID-19 (principal); J18.9 Pneumonia, unspecified organism; N18.30 Chronic kidney disease, stage 3 unspecified; E11.22 Type 2 diabetes mellitus with diabetic chronic kidney disease; I95.1 Orthostatic hypotension; F41.9 Anxiety disorder, unspecified; G40.909 Epilepsy, unspecified, not intractable, without status epilepticus; E66.09 Other obesity due to excess calories; Z68.36 Body mass index [BMI] 36.0-36.9, adult; Z86.718 Personal history of other venous thrombosis and embolism; Z98.84 Bariatric surgery status; Z95.0 Presence of cardiac pacemaker; Z79.899 Other long term (current) drug therapy
CPT/HCPCS: 0241U; 36415; 70450; 71045; 72125; 74176; 80048; 80076; 80307; 81003; 83605; 83735; 84484; 85007; 85025; 85027; 87040; 93005; 97161; 99222; 99285; J0456; J0696; J1650; J2270

== ENCOUNTER → 2023-10-12 10:18 | Outpatient (BNV) | payer OTHER, SELFPAY | PROVIDERS: Admitting Provider Student in an Organized Health Care Education/Training Program; Emergency Provider Emergency Medicine; Visit Provider Internal Medicine Cardiovascular Disease | DX: R00.0 Tachycardia, unspecified (principal); R94.31 Abnormal electrocardiogram [ECG] [EKG] | CPT/HCPCS: 93010 ==

== ENCOUNTER → 2023-10-12 16:46 | Outpatient (BNV) | payer OTHER, SELFPAY | PROVIDERS: Admitting Provider Student in an Organized Health Care Education/Training Program; Emergency Provider Emergency Medicine; Visit Provider Student in an Organized Health Care Education/Training Program | DX: U07.1 COVID-19 (principal); W19.XXXA Unspecified fall, initial encounter; J18.9 Pneumonia, unspecified organism | CPT/HCPCS: 99223; 99232; 99239 ==

== ENCOUNTER 2023-11-01 09:38 | Emergency (ER) | payer OTHER, SELFPAY ==
[2023-11-01 09:44] VITALS: BP 136/78; PULSE 76; O2SAT 95
[2023-11-01 09:52] VITALS: BP 144/88; PULSE 68; RESP 16; TEMP 36.1; O2SAT 100; BMI 31.3
[2023-11-01 17:32] VITALS: BP 157/79; PULSE 82; RESP 18; TEMP 37; O2SAT 97
--- NOTE | 2023-11-01 17:33 | ED_ITS ---
HPI - Abdominal Pain General Chief Complaint: Abdominal Pain Stated Complaint: Abdominal Pain per EMS Time Seen by Provider: 11/01/23 19:50 History of Present Illness HPI narrative: 53 y/o F patient; PMH anastomotic ulcer s/p gastric bypass, CKD, T2DM, diverticulitis, hx endometrial CA, pacemaker, hx pulmonary embolism, epilepsy, cholecystectomy, appendectomy; presents from home reporting 3 days of LLQ abdominal discomfort. Associated with nausea and a few episodes of diarrhea yesterday. The patient also endorses chills. She denies: fever, dysuria, hematuria, chest pain, SOB, cough/congestion, vomiting. Related Data Home Medications Medication Instructions Recorded Confirmed alprazolam 1 mg tablet 1 tab PO DAILY PRN Anxiety 04/13/21 10/12/23 melatonin 5 mg capsule 1 cap PO BEDTIME 04/13/21 10/12/23 venlafaxine 150 mg 1 cap PO DAILY 04/13/21 10/12/23 capsule,extended release 24 hr zolpidem 10 mg tablet 1 tab PO BEDTIME insomnia 04/13/21 10/12/23 amitriptyline 25 mg tablet 2 tab PO BEDTIME Insomnia 04/23/22 10/12/23 atorvastatin 20 mg tablet 1 tab PO DAILY 04/23/22 10/12/23 sucralfate 100 mg/mL oral 10 ml PO QID 04/23/22 10/12/23 suspension levetiracetam 1,000 mg tablet 1,500 mg PO Q12H 10/12/23 10/12/23 midodrine 10 mg tablet 10 mg PO TID@0800,1300,1800 10/12/23 10/12/23 [id number] 45 mg-folic 1 cap PO DAILY 10/12/23 10/12/23 acid 800 mcg-vit K 120 mcg capsule (Bariatric Multivitamins) nystatin 100,000 unit/gram topical 1 appl topical DAILY PRN Rash 10/12/23 10/12/23 powder (Nystop) pantoprazole 40 mg tablet,delayed 40 mg PO DAILY@0630 10/12/23 10/12/23 release tizanidine 2 mg tablet 2 mg PO BID 10/12/23 10/12/23 Previous Rx's Medication Instructions Recorded acetaminophen 325 mg tablet 650 mg (2 x 325 mg) PO Q6H PRN 06/16/22 pain #30 tabs docusate sodium 100 mg capsule 100 mg PO BID PRN Stool softener 06/16/22 (Colace) #20 caps azithromycin 500 mg tablet 500 mg PO DAILY 5 days #5 tabs 10/14/23 cefuroxime axetil 500 mg tablet 500 mg PO BID #10 tabs 10/14/23 psyllium husk 3.4 gram/5.4 gram 1 tbsp PO BID #660 grams 10/14/23 oral powder (Metamucil) Allergies Allergy/AdvReac Type Severity Reaction Status Date / Time egg [EGGS] AdvReac Intermediate NAUSEA/VOMI Verified 09/26/20 17:45 TING sumatriptan [From IMITREX] AdvReac Intermediate HEART Verified 09/26/20 17:45 PALPITATIONS Ibuprofen Allergy Unknown Unknown Uncoded 09/01/20 14:56 Review of Systems Review of Systems Yes all other systems are reviewed and are negative PMFSH Past Medical History Attestation statement: The following information was validated with the patient. Source: old records reviewed Onset Date is defined in the Problem List Problems that require an onset date and time if occurred within 24 hrs of arrival to the ED Aortic Dissection and Rupture; Neurologic impairment; Cardiopulmonary Arrest; Endotracheal Intubation; Insertion or Replacement of Mechanical Circulatory Assist Device Medical History Brain lesion Anemia Back pain Diabetes Seizure disorder Anxiety Depression Status post extracorporeal shock wave therapy Pacemaker (~2015) Pulmonary embolus, left (~04/2020) Anastomotic ulcer S/P gastric bypass DVT of right axillary vein, acute Diverticulitis Endometrial cancer Renal stones Hypotension Surgical History History of esophagogastroduodenoscopy (~06/2020) History of Trisha-en-Y gastric bypass (~10/2019) H/O tooth extraction Hx laparoscopic cholecystectomy Hx of appendectomy S/P CELESTINO (total abdominal hysterectomy) Hx of hernia repair History of sleeve gastrectomy (~2014) Family History Family History Father No problems noted. Mother Diabetes Chronic mental illness Father No problems noted. Mother No problems noted. Social History Social History Household Members: None Housing: Apartment Do you presently have visiting nurse or other home services: No Unable to assess alcohol history related to: Unable to respond Alcohol intake: current Alcohol intake frequency: 0-2 drinks per day Comment: PATIENT STATES RECENT FALL REQUIRING GO E.R. S/P FALL Patient Tobacco Use Status: Never used Tobacco Second Hand Smoke Exposure: No Substance Use Type: Marijuana, Opiates and Prescription Drugs Advance Directives: Yes Advance Directives on File: Yes Advance Directives Date on File: 04/23/22 service: No Current occupational status: disabled Physical Exam ED Vital Signs: Vital Signs - 24 hr 11/01/23 09:52 11/01/23 17:32 11/01/23 19:51 Temperature 97 F 98.6 F 98.2 F Pulse Rate 68 82 99 Respiratory Rate 16 18 14 Blood Pressure 144/88 H 157/79 H 176/97 H Pulse Oximetry 100 97 Oxygen Delivery Method Room Air Room Air BMI result Body Mass Index 31.3 Patient is afebrile and hemodynamically stable Const General: cooperative HENMT Head: Yes atraumatic Eyes General: appearance normal, both eyes and all related structures Pupils: Equal, round and reactive pupils present EOM: EOMs intact bilaterally Neck Neck: Yes full ROM, Yes supple and No tender Chest Chest palpation & inspection: normal inspection of the chest Resp Effort & Inspection: normal respiratory effort and no cough Auscultation: clear to auscultation bilaterally Cardio Rate: regular rate Rhythm: regular rhythm Peripheral pulses: Peripheral pulses 2+ throughout GI Inspection: No Abdominal wall edema and No distended Palpation (GI): Soft to palpation, no guarding, not rigid and Other GI palpation findings present (LLQ abdominal tenderness to palp, mild suprapubic tenderness to palp) Auscultation: normal bowel sounds Neuro Cranial nerves: Yes Equal, round and reactive pupils present Course Course Course Narrative: This is an RME: Additional HPI, ROS, PE not included below will be deferred to primary provider. 53 yo f hx orthostatic hypotension on midodrine, history of DVT/PE-currently not on anticoagulation currently, history of migraine headaches, diabetes, CKD stage 3, chronic back pain, history of bradycardia status post pacemaker, seizure disorder, anxiety, depression, history of endometrial cancer, history of bariatric surgery, presents w/ LLQ pain 9/10 X 4-5 days. Patient has been in the waiting room for over 7 hours, labs resulted, IGOR noted, fluids ordered for when patient goes to the back. Also gave her a urine cup to obtain a urine sample. Reevaluation(s) Reevaluation #1: Patient is afebrile and hemodynamically stable. Reviewed triage work up. No leukocytosis. Evidence of mild dehydration with Bicarb 20, Cr 1.95 (baseline 1.64). UA with possible mild UTI. Culture sent. Patient however denies any hematuria, dysuria, or frequency. COVID/Flu/RSV negative. Ordered CT Abdomen/Pelvis w/o IV Contrast. Previously ordered for 1L IVF. Added Tylenol 975mg PO and Zofran 4mg IV. Reevaluation #2: CT scan reviewed- evidence of constipation with large volume of stool in the rectum without evidence of sterocoral colitis. Patient states she has daily bowel movements. She reports she takes every other day Miralax and something OTC called stool softener . Patient offered glycerin suppository but declines. She would like to do suppositories at home. Discussed increasing her dose of Miralax to everyday. Recommended patient follow up with her PCP or return to the ED in 2 days if she has not had a bowel movement by then. Patient voiced agreement and understanding. Patient was straight stuck of labs, line not established. Discontinued fluids. Patient tolerating PO liquids. Provided Zofran ODT. Discussed with patient that mild infectious appearing UA can occur from significant constipation due to translocation of bacteria. Patient continues to deny dysuria, frequency, or urgency. She is agreeable to holding antibiotics and sending UA for culture. Plan: Discharge to home with PCP follow up Return precautions given Reevaluation #3: 11/05/23--0409--urine culture grew greater than 100,000 mixed bacterial rosa maria, called and spoke with patient she denies any UTI symptoms. Likely contaminant Medical Decision Making Lab Data 11/01/23 10:02 11/01/23 10:02 Labs: Lab Results 11/01/23 11/01/23 11/01/23 Range/Units 09:58 10:02 17:41 WBC 4.8 (4.8-10.8) X10*3/uL RBC 4.52 (4.20-5.50) X10*6/uL Hgb 11.7 L (12.0-16.0) g/dl Hct 37.9 (37.0-47.0) % MCV 83.8 (80.0-98.0) fL MCH 25.9 L (27.0-33.0) pg MCHC 30.9 L (31.0-35.0) g/dl RDW 14.6 (11.0-16.0) % Plt Count 241 (160-400) X10*3/uL MPV 9.1 L (9.4-12.3) fL Immature Gran % (Auto) 0.6 H (0.0-0.4) % Neut % (Auto) 68.2 (45-73) % Lymph % (Auto) 19.6 L (20-40) % Crook % (Auto) 8.1 (2-11) % Eos % (Auto) 2.9 (0-4) % Baso % (Auto) 0.6 (0-2) % Lymph # (Auto) 0.9 L (1.2-4.9) X10*3/uL [place] # (Auto) 0.4 (0.1-1.2) X10*3/uL Eos # (Auto) 0.1 (0.0-0.4) X10*3/uL Baso # (Auto) 0.0 (0.0-0.2) X10*3/uL Abs Immat Gran (auto) 0.03 (0.00-0.03) X10*3/uL Absolute Neuts (auto) 3.3 (2.0-8.3) x10*3/uL Absolute Nucleated RBC 0.000 (0.0-0.012) X10*3/uL Nucleated RBC % (auto) 0.0 (0.0-0.2) /100WBC Sodium 142 (135-145) mmol/L Potassium 4.0 (3.3-5.1) mmol/L Chloride 110 H (96-108) mmol/L Carbon Dioxide 20 L (22-29) mmol/L Anion Gap 16 (12-20) BUN 28 H (9-16) mg/dL Creatinine 1.94 H (0.5-1.4) mg/dL Estim Creat Clear Calc 38.3 Estimated GFR 27 Random Glucose 94 (60-115) mg/dL Calcium 9.0 D (8.4-10.2) mg/dL Magnesium 2.1 (1.6-2.6) mg/dL Total Bilirubin 0.3 (0.0-1.0) mg/dL Direct Bilirubin 0.1 (0.0-0.5) mg/dL AST 13 (5-31) U/L ALT 9 (0-31) U/L Alkaline Phosphatase 165 H (39-117) U/L Total Protein 7.0 (6.5-8.0) g/dL Albumin 3.8 (3.5-5.0) g/dL Lipase 12 (8-78) U/L Beta HCG, Quant 5 mIU/mL Urine Color Yellow Urine Appearance Cloudy Urine pH 5.0 (5.0-9.0) Ur Specific [place] 1.015 (1.005-1.025) Urine Protein Trace (Neg-Trace) mg/dL Urine Glucose (UA) Negative (Negative) mg/dL Urine Ketones Negative (Negative) mg/dL Urine Blood Trace H (Negative) Urine Nitrite Negative (Negative) Ur Leukocyte Esterase Small (1+) H (Negative) Urine RBC 3-5 H (0-2) /HPF Urine WBC 21-50 H (0-5) /HPF Ur Squamous Epith Cells 6-10 (0-2) /HPF Urine Bacteria 1+ (None Seen) Hyaline Casts 3-5 (0-2) /LPF Influenza Type A (PCR) NEGATIVE (Negative) Influenza Type B (PCR) NEGATIVE (Negative) RSV RNA Qual (PCR) NEGATIVE (Negative) SARS-CoV-2 RNA (RT-PCR) NEGATIVE (Negative) Radiology Impression Discussion of test interpretation with radiology: I have reviewed the radiologist's reading. Radiologist Impression: EXAMINATION: CT ABDOMEN AND PELVIS WITHOUT CONTRAST CLINICAL INFORMATION: Left lower quadrant pain COMPARISON: CT scan abdomen pelvis October 12, 2023 TECHNIQUE: Multidetector volumetric imaging was performed from the superior aspect of the liver through the pubic symphysis. Sagittal and coronal reformatted images were obtained on the technologist's workstation. This CT examination was performed using dose optimization techniques as appropriate, variously including the following: *Automated exposure control *Adjustment of mA and/or kV according to patient size (this includes techniques or standardized protocols for targeted exams where dose is matched to indication/reason for exam; i.e. extremities or head) *Use of iterative reconstruction technique DLP: 694 mGy-cm FINDINGS: LUNG BASES: The visualized lung bases are unremarkable. Pacemaker lead in the heart LIVER, GALLBLADDER, AND BILIARY TREE: The liver is normal in size, shape, and attenuation. No focal hepatic lesion or biliary ductal dilatation is present. Status post cholecystectomy PANCREAS: Unremarkable. SPLEEN: Unremarkable. ADRENAL GLANDS: Unremarkable. KIDNEYS AND URETERS: Normal variant of 4 should kidney. Multiple nonobstructive calculi in both kidneys. Stones are larger and more numerous on the left lung on the left measures 1.8 x 1.2 cm. This has a density measurement of 979 Hounsfield units. This stone is 9.6 cm from the posterior skin line. No ureteral stone or hydronephrosis BLADDER: Unremarkable. GASTROINTESTINAL TRACT: Postsurgical changes of the bowel. Surgical sutures at the GE junction and involving small bowel loops in the mid upper abdomen. Surgical suture line at the distal sigmoid. Large collection of stool in the rectum distending the rectum to a diameter of 8.5 cm. No evidence of stercoral colitis however. There is a moderate to large volume of stool in the remainder the colon. The appendix is normal. No acute small bowel abnormality. ABDOMINAL WALL: No significant hernia is appreciated. LYMPH NODES: Normal. VASCULAR: Unremarkable. PELVIC VISCERA: Status post hysterectomy. OSSEOUS STRUCTURES: Multilevel degenerative spondylosis spine. CT/CT abdomen pelvis wo IV con IMPRESSION: 1. No acute abnormality CT scan abdomen pelvis. 2. Large volume of stool in the rectum distending the rectum to a diameter of 8.5 cm. No evidence of stercoral colitis. 3. Bilateral nonobstructive renal calculi. 4. Status post cholecystectomy. 5. Postsurgical changes of the bowel. 6. Status post hysterectomy. Medications Administered Discontinued Medications Generic Name Dose Route Start Last Admin Trade Name Freq PRN Reason Stop Dose Admin Acetaminophen 975 mg 11/01/23 20:13 11/01/23 21:25 Acetaminophen 325 Mg Tablet PO 11/01/23 20:14 975 mg ONCE ONE Administration Sodium Chloride 1,000 mls @ 999 mls/hr 11/01/23 17:45 11/01/23 21:35 Ns IV 11/01/23 18:45 Not Given .Q1H1M LUPE Ondansetron HCl 4 mg 11/01/23 21:22 11/01/23 21:25 Ondansetron Odt 4 Mg Tab.Cucadis TRANSLINGU 11/01/23 21:23 4 mg ONCE ONE Administration Discharge Plan Discharge Clinical Impression: Constipation Patient Disposition: Home, Self-Care Instructions: Constipation (DC) Additional Instructions: As we discussed, you were seen today for abdominal pain. Your labs showed mild dehydration. Your CT scan showed you were very constipation. You preferred to do a suppository at home - recommend you do this tonight. Please return to the ED or follow up with your PCP if you have not had a bowel movement in 2 days. Prescriptions: No Action alprazolam 1 mg tablet 1 tab PO DAILY PRN (Reason: Anxiety) venlafaxine 150 mg capsule,extended release 24hr 1 cap PO DAILY zolpidem 10 mg tablet 1 tab PO BEDTIME melatonin 5 mg capsule 1 cap PO BEDTIME atorvastatin 20 mg tablet 1 tab PO DAILY sucralfate 100 mg/mL suspension 10 ml PO QID amitriptyline 25 mg tablet 2 tab PO BEDTIME acetaminophen 325 mg tablet 650 mg PO Q6H PRN (Reason: pain) Qty: 30 0RF docusate sodium [Colace] 100 mg capsule 100 mg PO BID PRN (Reason: Stool softener) Qty: 20 0RF tizanidine 2 mg tablet 2 mg PO BID nystatin [Nystop] 100,000 unit/gram powder 1 appl topical DAILY PRN (Reason: Rash) pantoprazole 40 mg tablet,delayed release (DR/EC) 40 mg PO DAILY@0630 levetiracetam 1,000 mg tablet 1,500 mg PO Q12H Bariatric Multivitamins 45 mg iron- 800 mcg-120 mcg Capsule 1 cap PO DAILY midodrine 10 mg tablet 10 mg PO TID@0800,1300,1800 azithromycin 500 mg tablet 500 mg PO DAILY 5 Days Qty: 5 0RF cefuroxime axetil 500 mg tablet 500 mg PO BID Qty: 10 0RF Metamucil 3.4 gram/5.4 gram powder 1 tbsp PO BID Qty: 660 1RF Rx Instructions: mix into at least 8 oz of water or juice before administering Interventions: ED Discharge Assessment Last Done: 11/01/23 21:36 Discharge Date/Time: 11/01/23 21:38
[2023-11-01 19:51] VITALS: BP 176/97; PULSE 99; RESP 14; TEMP 36.8
== END 2023-11-01 21:38 | disposition home or self-care (01) ==
PROVIDERS: Emergency Provider Emergency Medicine; PCP Internal Medicine
DX: K59.00 Constipation, unspecified (principal); R10.32 Left lower quadrant pain; R11.2 Nausea with vomiting, unspecified; Z98.84 Bariatric surgery status; Z79.899 Other long term (current) drug therapy; Z20.822 Contact with and (suspected) exposure to COVID-19; Z20.828 Contact with and (suspected) exposure to other viral communicable diseases
CPT/HCPCS: 0241U; 36415; 74176; 80048; 80076; 81001; 83690; 83735; 84702; 85025; 87086; 99283; 99284